=== PATIENT | male | born 1945 | race Hispanic/Latino ===

== ENCOUNTER 2017-12-22 12:52 | Inpatient (IN) | payer OTHER ==
[~2017-12-22] VITALS: Ht 152.4 cm; Wt 53.4 kg
[~2017-12-22 12:52] MED LIST: ASPI-555 PO; ATOR10 PO; FURO-152 PO; LACT10SO9 PO; LEVO500T2 PO; METO25 PO; SPIR25TA4 PO
[2017-12-22 13:29] LABS: HEMATOCRIT 46.2 % (42-54); MEAN CORPUSCULAR HEMOGLOBIN 30.9 pg (27.0-33.0); MEAN CORPUSCULAR HGB CONC 34.4 g/dL (32.0-36.0); MEAN CORPUSCULAR VOLUME 89.8 fL (79-99); PLATELET COUNT (AUTO) 281 K/uL (130-400); RED BLOOD CELL COUNT(AUTO) 5.15 MIL/uL (4.50-6.20); RED CELL DISTRIBUTION WIDTH 13.9 % (11.0-15.5); WHITE BLOOD COUNT (AUTO) 11.2 K/uL (4.8-10.8)
[2017-12-22 13:42] LABS: CREATININE 1.6 mg/dL (0.5-1.5); POTASSIUM 4.7 mmol/L (3.5-5.1)
[2017-12-22 13:46] LABS: BILIRUBIN,DIRECT 0.3 mg/dL (0.0-0.3); BILIRUBIN,TOTAL 1.2 mg/dL (0.2-1.0); TOTAL PROTEIN, SERUM 7.9 g/dL (6.0-8.3)
[2017-12-22] MEDS ORDERED: MORPHINE SULFATE 2 MG/ML 1ML SYG ONE (14:10)
[2017-12-22] MEDS ORDERED: ONDANSETRON HCL 4 MG/2 ML VIAL ONE (14:10)
[2017-12-22 14:19] LABS: APPEARANCE,URINE Clear (CLEAR); BILIRUBIN,URINE Negative (NEGATIVE); COLOR,URINE Yellow (YELLOW); GLUCOSE, URINE (UA) >=1000 mg/dL (NEGATIVE); KETONES,URINE 15 mg/dL (NEGATIVE); LEUKOCYTE ESTERASE ,URINE Negative (NEGATIVE); NITRATE,URINE Negative (NEGATIVE); OCCULT BLOOD,URINE Negative (NEGATIVE); PROTEIN,URINE Negative (NEGATIVE)
[2017-12-22 14:31] LABS: BAND NEUTROPHILS % (MANUAL) 22 % (0-2); BASOPHILS % (MANUAL) 1 % (0-2); LYMPHOCYTES % (MANUAL) 2 % (22-44); MONOCYTES % (MANUAL) 7 % (2-9); REACTIVE LYMPHOCYTES 2 % (0-0); SEGMENTED NEUTROPHILS % 66 % (40-70)
[2017-12-22 14:32] LABS: PLATELET MORPHOLOGY COMMENT ADEQUATE
[2017-12-22 14:43] LABS: BACTERIA,URINE None Seen /HPF (None Seen); HYALINE CASTS, URINE 0-1 /LPF (0-1 /LPF); RBC,URINE None Seen /HPF (0-1); SQUAMOUS EPITHELIAL CELL,UR 0-2 /LPF (0-2); WBC,URINE None Seen /HPF (0-1)
[2017-12-22] MEDS ORDERED: SODIUM CHLORIDE 0.9% 1000ML 1,000 ML IV ONE (14:54)
[2017-12-22] MEDS ORDERED: LIDOCAINE HCL 2% VISCOUS 15 ML UDCUP ONE (14:54)
[2017-12-22 16:55] VITALS: BP 118/61
[2017-12-22] MEDS ORDERED: LABETALOL HCL 5 MG/ML 20ML VIAL IV PRN (17:15)
[2017-12-22] MEDS ORDERED: MORPHINE SULFATE 4 MG/1ML SYG IVP PRN (17:15)
[2017-12-22] MEDS ORDERED: LIDOCAINE HCL-MPF 1% 2ML VIAL IJ PRN (17:15)
[2017-12-22] MEDS ORDERED: DEXTROSE 50%-WATER 50 ML DISP.SYRIN IV PRN (17:15)
[2017-12-22] MEDS ORDERED: ONDANSETRON HCL 4 MG/2 ML VIAL IVP PRN (17:15)
[2017-12-22] MEDS ORDERED: GLUCAGON 1MG KIT 1 MG ML IM PRN (17:15)
[2017-12-22] MEDS ORDERED: MORPHINE SULFATE 2 MG/ML 1ML SYG IVP PRN (17:15)
[2017-12-22] MEDS ORDERED: POTASSIUM CHLORIDE 20 MEQ ERTAB PO PRN (17:15)
[2017-12-22] MEDS ORDERED: ACETAMINOPHEN 650 MG SUPPOSITORY RC PRN (17:15)
[2017-12-22] MEDS ORDERED: POTASSIUM CHLORIDE 10% ELIXIR 20 MEQ/15 ML UDCUP PO PRN (17:15)
[2017-12-22] MEDS ORDERED: POTASSIUM CHLORIDE 20MEQ/100ML 100 ML IV PRN (17:15)
[2017-12-22] MEDS: INSULIN R NPO SSI SQ SCH (18:40)
[2017-12-22 20:00] VITALS: BP 110/55
[2017-12-23] VITALS: BP 99/52
[2017-12-23 04:00] VITALS: BP 101/51
[2017-12-23 05:01] LABS: HEMATOCRIT 38.6 % (42-54); MEAN CORPUSCULAR HEMOGLOBIN 30.6 pg (27.0-33.0); MEAN CORPUSCULAR HGB CONC 34.1 g/dL (32.0-36.0); MEAN CORPUSCULAR VOLUME 89.9 fL (79-99); PLATELET COUNT (AUTO) 215 K/uL (130-400); RED BLOOD CELL COUNT(AUTO) 4.29 MIL/uL (4.50-6.20); RED CELL DISTRIBUTION WIDTH 14.1 % (11.0-15.5); WHITE BLOOD COUNT (AUTO) 8.6 K/uL (4.8-10.8)
[2017-12-23 05:10] LABS: CREATININE 1.4 mg/dL (0.5-1.5); POTASSIUM 3.9 mmol/L (3.5-5.1)
[2017-12-23] MEDS: SODIUM CHLORIDE 0.9% 1000ML 1,000 ML IV SCH ×2 (05:30→21:43)
[2017-12-23] MEDS: MEROPENEM 500 MG VIAL IVP SCH ×3 (05:30→21:43)
[2017-12-23] MEDS: INSULIN R NPO SSI SQ SCH ×4 (06:00→17:24)
[2017-12-23] MEDS ORDERED: MEROPENEM 500MG+NS 50ML 50 ML IV SCH (06:00)
[2017-12-23 07:00] VITALS: BP 117/59
[2017-12-23] MEDS ORDERED: ACETAMINOPHEN-CODEINE 300/30MG TAB PO PRN ×2 (09:45)
[2017-12-23 11:00] VITALS: BP 111/61
[2017-12-23 16:00] VITALS: BP 109/63
[2017-12-23 20:00] VITALS: BP_SYST 115; BP_SYST 120; BP_DIAS 58; BP_DIAS 61
[2017-12-24] VITALS (7 sets, daily range): BP systolic 103–125; BP diastolic 52–61
[2017-12-24 05:32] LABS: BASOPHILS % (AUTO) 0.3 % (0.0-5.0); EOSINOPHILS % (AUTO) 0.3 % (0.0-8.0); HEMATOCRIT 37.2 % (42-54); LYMPHOCYTES % (AUTO) 14.7 % (21.0-51.0); MEAN CORPUSCULAR HEMOGLOBIN 31.1 pg (27.0-33.0); MEAN CORPUSCULAR HGB CONC 33.6 g/dL (32.0-36.0); MEAN CORPUSCULAR VOLUME 92.4 fL (79-99); MONOCYTES % (AUTO) 9.5 % (3.0-13.0); NEUTROPHILS % (AUTO) 75.2 % (40.0-77.0); PLATELET COUNT (AUTO) 225 K/uL (130-400); RED BLOOD CELL COUNT(AUTO) 4.02 MIL/uL (4.50-6.20); RED CELL DISTRIBUTION WIDTH 14.3 % (11.0-15.5); WHITE BLOOD COUNT (AUTO) 9.5 K/uL (4.8-10.8)
[2017-12-24 05:40] LABS: CREATININE 1.1 mg/dL (0.5-1.5)
[2017-12-24] MEDS: MEROPENEM 500 MG VIAL IVP SCH (05:53)
[2017-12-24] MEDS: INSULIN R NPO SSI SQ SCH ×4 (06:00→17:14)
[2017-12-24] MEDS: SODIUM CHLORIDE 0.9% 1000ML 1,000 ML IV SCH (09:15)
[2017-12-25] MEDS: SODIUM CHLORIDE 0.9% 1000ML 1,000 ML IV SCH (00:36)
[2017-12-25 04:25] VITALS: BP 104/52
[2017-12-25] MEDS: INSULIN R NPO SSI SQ SCH ×4 (06:00→21:20)
[2017-12-25 06:13] LABS: CREATININE 0.9 mg/dL (0.5-1.5); POTASSIUM 3.7 mmol/L (3.5-5.1)
[2017-12-25 08:04] VITALS: BP 125/63
[2017-12-25 11:41] VITALS: BP 132/71
[2017-12-25] MEDS ORDERED: INSULIN HUMULIN R 100 UNIT/ML 3ML SQ ONE (12:33)
[2017-12-25 16:36] VITALS: BP 116/59
[2017-12-25 19:00] VITALS: BP 124/56
[2017-12-25] MEDS ORDERED: FURO20TA4 PO (21:31)
[2017-12-25] MEDS ORDERED: CYAN250014 PO (21:31)
[2017-12-25] MEDS ORDERED: FISH1CAP10 PO (21:31)
[2017-12-25] MEDS ORDERED: RIVA15TA PO (21:31)
[2017-12-25 23:00] VITALS: BP 111/55
[2017-12-26 03:00] VITALS: BP 109/56
[2017-12-26 04:17] LABS: CREATININE 0.8 mg/dL (0.5-1.5); POTASSIUM 3.7 mmol/L (3.5-5.1)
[2017-12-26] MEDS: INSULIN R NPO SSI SQ SCH ×2 (05:48)
[2017-12-26 08:17] VITALS: BP 129/63
[2017-12-26] MEDS ORDERED: BISA5TAB12 PO (09:40)
[2017-12-26 12:00] VITALS: BP 142/65
[2017-12-26] MEDS ORDERED: RIVAROXABAN 15 MG TABLET PO SCH (17:00)
[2017-12-26] MEDS ORDERED: METOPROLOL TARTRATE 25 MG TAB PO SCH (21:00)
[2017-12-26] MEDS ORDERED: ATORVASTATIN CALCIUM 10 MG TABLET PO SCH (21:00)
[2017-12-27] MEDS ORDERED: FISH OIL 1000 MG/CAP PO SCH (09:00)
[2017-12-27] MEDS ORDERED: FUROSEMIDE 20 MG TABLET PO SCH (09:00)
[2017-12-27] MEDS ORDERED: SPIRONOLACTONE 25 MG TAB PO SCH (09:00)
[2017-12-27] MEDS ORDERED: CYANOCOBALAMIN (VITAMIN B-12) 1,000 MCG TABLET PO SCH (09:00)
== END 2017-12-26 12:45 | disposition home or self-care (01) | DRG 389 ==
LOC: EDH 12:52 → EDHIP 14:48 → OBSVTOIN 14:48 → 4BH 16:23
PROVIDERS: ADMIT Internal Medicine; ATTEND Internal Medicine
DX: K56.609 Unspecified intestinal obstruction, unspecified as to partial versus complete obstruction (principal); N17.9 Acute kidney failure, unspecified; E11.65 Type 2 diabetes mellitus with hyperglycemia; E78.5 Hyperlipidemia, unspecified; I10 Essential (primary) hypertension; I25.10 Atherosclerotic heart disease of native coronary artery without angina pectoris; Z95.1 Presence of aortocoronary bypass graft
CPT/HCPCS: 36415; 71045; 74021; 74176; 80048; 80076; 81001; 82948; 83690; 84484; 85025; 85027; 87040; 93005; J1815; J2185; J2405; J7030

== ENCOUNTER 2019-11-18 23:39 | Emergency (ER) | payer OTHER ==
[~2019-11-18 23:39] MED LIST changes: -ASPI-555 PO; +BISA5TAB12 PO; +CYAN250014 PO; +FISH1CAP10 PO; -FURO-152 PO; +FURO20TA4 PO; -LACT10SO9 PO; -LEVO500T2 PO; +RIVA15TA PO; -SPIR25TA4 PO; +SPIR25TA6 PO
[2019-11-18] MEDS ORDERED: IBUPROFEN 600 MG TABLET ONE (23:57)
== END 2019-11-19 00:35 | disposition home or self-care (01) ==
LOC: EDH 23:39
DX: S83.8X2A Sprain of other specified parts of left knee, initial encounter (principal); E11.9 Type 2 diabetes mellitus without complications; E78.5 Hyperlipidemia, unspecified; I10 Essential (primary) hypertension; I25.810 Atherosclerosis of coronary artery bypass graft(s) without angina pectoris; W18.39XA Other fall on same level, initial encounter; Y93.01 Activity, walking, marching and hiking; Y92.89 Other specified places as the place of occurrence of the external cause; Y99.8 Other external cause status
CPT/HCPCS: 73562

== ENCOUNTER → 2021-06-10 | Outpatient (CLI) | payer OTHER | END | disposition home or self-care (01) | LOC: RAH 10:10 | PROVIDERS: ATTEND Internal Medicine Cardiovascular Disease | DX: R94.31 Abnormal electrocardiogram [ECG] [EKG] (principal); I10 Essential (primary) hypertension | CPT/HCPCS: 93306; 93356 ==

== ENCOUNTER → 2024-08-16 | Outpatient (CLI) | payer OTHER ==
[~2024-08-16] MED LIST changes: +BISA-189 PO; -BISA5TAB12 PO
== END | disposition home or self-care (01) ==
LOC: SHCH 13:10
PROVIDERS: ATTEND Internal Medicine Cardiovascular Disease
DX: Z95.2 Presence of prosthetic heart valve (principal)
CPT/HCPCS: 93306

== ENCOUNTER → 2024-12-24 | Outpatient (CLI) | payer OTHER, MEDICARE ==
[~2024-12-24] MED LIST changes: +ASPI-888 PO; -ATOR10 PO; -BISA-189 PO; -CYAN250014 PO; +ESCI-8 PO; -FISH1CAP10 PO; -FURO20TA4 PO; +GABA-534 PO; -RIVA15TA PO; +ROSU40TA88 PO; -SPIR25TA6 PO
--- NOTE | 2025-01-07 17:05 | HMCSR ---
APPROVED REPORT EXAM: Two-dimensional and M-mode echocardiogram with Doppler and color Doppler. INDICATION ICD: Leg swelling 2D Dimensions RVDd4.1 cmLVEF(%)78.1 (>50%)LA ESV INDEX (4CH)52.90 mL/m2 IVSd1.4 (0.7-1.1cm)FS(%)46 % LVDd3.9 (3.8-5.6cm)LA (2D)5.4 (1.6-4.0cm) PWd1.1 (0.7-1.1cm)Ao Root(2D)3.1 (2.0-3.7cm) IVSs1.3 cmLVOT diam2.1 (1.8-2.4cm) LVDs2.1 (2.5-4.0cm) PWs1.7 cm Aortic Valve AoV VTI0.5 mAo Mean GR11.0 mmHgLVOT VTI0.18 m TAMELA (VMAX)1.3 cm2AVA (VTI) 1.3 cm2 Mitral Valve MV E Vcpb464.8 cm/sDECEL Jahu158 msMV Mean GR11 mmHg MV A Orvl399.1 cm/sP 1/2 T106 msMVA (VTI)0.8 cm2 E/A ratio1.9MVA (PHT)2.1 cm2 TDI E/E' Nsxihe55.8E/E' Blapchp79.3 Medial E' Peak V3.60 cm/sLateral E' Peak V5.70 cm/s Pulmonary Valve PV Vmax1.0 m/s PV Peak GR3.6 mmHg Tricuspid Valve TR Vmax4.0 m/s TR Peak GR62.5 mmHg Left Ventricle Left ventricular cavity size is normal. Normal wall motion Mild concentric left ventricular hypertrop hy. LVEF is 55-60%. Stage II diastolic dysfunction. Right Ventricle The right ventricle is normal size. Right ventricular systolic function is normal Atria The left atrium is severely dilated. The right atrium size is normal. Aortic Valve Not well seen No aortic regurgitation is present. There is no aortic valvular stenosis. Mitral Valve Mitral valve leaflets are moderately calcified and display decreased opening. There is no mitral valv e regurgitation noted. SEVERE MITRAL STENOSIS Tricuspid Valve The tricuspid valve is normal in structure and function. There is no tricuspid valve regurgitation no claire. Pulmonic Valve Not seen Great Vessels The aortic root is normal in size. The IVC is normal in size and collapses >50% with inspiration. Pericardium No pericardial effusion. Conclusion LVEF is 55-60%. Stage II diastolic dysfunction. Mild concentric left ventricular hypertrophy. Left ventricular cavity size is normal. Normal wall motion The left atrium is severely dilated. Mitral valve leaflets are moderately calcified and display decreased opening. SEVERE MITRAL STENOSIS No pericardial effusion. Moderate to severe pulmonary hypertension Study quality was adequate
== END | disposition home or self-care (01) ==
LOC: RAH 14:11
PROVIDERS: ATTEND Internal Medicine
DX: I05.0 Rheumatic mitral stenosis (principal); M79.89 Other specified soft tissue disorders; I27.20 Pulmonary hypertension, unspecified
CPT/HCPCS: 93306

== ENCOUNTER 2025-03-25 14:26 | Inpatient (IN) | payer OTHER, MEDICARE ==
[~2025-03-25] VITALS: Ht 160 cm; Wt 59.4 kg
[2025-03-25 16:58] LABS: BASOPHILS # (AUTO) 0.05 K/uL (0.00-0.20); BASOPHILS % (AUTO) 0.8 % (0.0-5.0); EOSINOPHILS % (AUTO) 6.7 % (0.0-8.0); HEMATOCRIT 34.8 % (42-54); IMMATURE GRANULOCYTE ABSOLUTE 0.01 K/uL (0-1); LYMPHOCYTES # (AUTO) 2.5 K/uL (1.0-4.8); LYMPHOCYTES % (AUTO) 40.9 % (21.0-51.0); MEAN CORPUSCULAR HEMOGLOBIN 28.2 pg (27.0-33.0); MEAN CORPUSCULAR HGB CONC 31.9 g/dL (32.0-36.0); MEAN CORPUSCULAR VOLUME 88.3 fL (79-99); MONOCYTES # (AUTO) 0.5 K/uL (0.1-1.0); MONOCYTES % (AUTO) 8.5 % (3.0-13.0); NEUTROPHILS # (AUTO) 2.6 K/uL (1.8-7.7); NEUTROPHILS % (AUTO) 42.9 % (40.0-77.0); PLATELET COUNT (AUTO) 260 K/uL (130-400); RED BLOOD CELL COUNT(AUTO) 3.94 MIL/uL (4.50-6.20); RED CELL DISTRIBUTION WIDTH 14.8 % (11.0-15.5)
[2025-03-25 17:00] VITALS: BP 178/72; PULSE 73; RESP 18; TEMP 98
[2025-03-25 17:07] LABS: CREATININE 1.1 mg/dL (0.5-1.3)
[2025-03-25 17:12] LABS: ALBUMIN 3.5 g/dL (3.5-5.0); BILIRUBIN,TOTAL 0.3 mg/dL (0.2-1.0); TOTAL PROTEIN, SERUM 7.4 g/dL (6.0-8.3)
[2025-03-25 18:01] LABS: ERYTHROCYTE SEDIMENTATION RATE 41 MM/HR (0-20)
--- NOTE | 2025-03-25 18:59 | HP ---
[facility] HISTORY & PHYSICAL Date Patient Seen: Mar 25, 2025 Time of Visit: 18:50 Supervising Physician: Dr. Wen Primary Care Physician: Dr. MERYL [facility] Outpatient Specialists: [ ] Inpatient Consults: [ ] PROBLEM LIST: 1. LEFT FOOT CELLULITIS 2. DIABETES TYPE 2 UNCONTROLLED 3. ESSENTIAL HYPERTENSION 4. RIGHT BKA, POA Chief complaint: Left foot pain, left foot swelling, left foot redness HPI: Patient is a 79-year-old male with past medical history significant for diabetes type 2, hypertension, peripheral arterial disease, depression, coronary artery disease, and a surgical history of cardiac stent placement, right BKA, referred to the emergency department from [facility] for evaluation of left foot redness, swelling, and pain. Patient reports that for the past seven days, he has been noticing a progressive swelling to the left foot, associated with redness and pain. Patient was seen today at [facility] and was referred to this facility for direct admission. Patient denies fever, chills, nausea, vomiting, diarrhea, cough, dizziness, or any other symptoms. The basic lab shows ESR of 41, glucose of 264. Yoke Setter has been consulted. Patient will be admitted to medical-surgical floor for further evaluation and treatment. PAST MEDICAL HX: see above PAST SURGICAL HX: noncontributory SOCIAL HISTORY: No tobacco, ETOH, or illicit drug use Coded Allergies: No Known Drug Allergies (Verified Allergy, 02/19/14) REVIEW OF SYSTEMS: 12 point ROS reviewed with patient. Pertinent positives mentioned above. Otherwise negative. PHYSICAL EXAM: GENERAL: alert, weak, awake oriented x 3 HEENT: EOMI, Sclera non icteric, moist mucosa NECK: Supple, no JVD, trachea midline LUNGS: Clear breath sounds bilaterally. No wheezes HEART: Regular rate and rhythm. Normal S1 and S2, without murmurs ABD: Abdomen soft, nontender. Bowel sounds present EXT: Left foot cellulitis NEURO: Alert and oriented to person, follows commands Vital Signs (last 8hr) Date Time Temp Pulse Resp B/P (MAP) Pulse Ox O2 Delivery O2 Flow Rate FiO2 03/25/25 17:00 98.1 73 18 178/72 99 Room Air 03/25/25 14:42 98.2 71 16 146/62 97 Room Air 0 LABS: Hematology Labs: Test 03/25/25 16:49 Range/Units White Blood Count 6.0 4.8-10.8 K/uL Red Blood Count 3.94 L 4.50-6.20 MIL/uL Hemoglobin 11.1 L 14.0-18.0 g/dL Hematocrit 34.8 L 42-54 % Mean Corpuscular Volume 88.3 79-99 fL Mean Corpuscular Hemoglobin 28.2 27.0-33.0 pg Mean Corpuscular Hemoglobin Concent 31.9 L 32.0-36.0 g/dL Red Cell Distribution Width 14.8 11.0-15.5 % Platelet Count 260 130-400 K/uL Mean Platelet Volume 9.2 7.5-10.5 fL Immature Granulocyte % (Auto) 0.2 0-1 % Neutrophils (%) (Auto) 42.9 40.0-77.0 % Lymphocytes (%) (Auto) 40.9 21.0-51.0 % Monocytes (%) (Auto) 8.5 3.0-13.0 % Eosinophils (%) (Auto) 6.7 0.0-8.0 % Basophils (%) (Auto) 0.8 0.0-5.0 % Neutrophils # (Auto) 2.6 1.8-7.7 K/uL Lymphocytes # (Auto) 2.5 1.0-4.8 K/uL Monocytes # (Auto) 0.5 0.1-1.0 K/uL Eosinophils # (Auto) 0.40 0.00-0.70 K/uL Basophils # (Auto) 0.05 0.00-0.20 K/uL Absolute Immature Granulocyte (auto 0.01 0-1 K/uL Nucleated Red Blood Cells 0.0 0.0-0.19 % Erythrocyte Sedimentation Rate 41 H 0-20 MM/HR Chemistry Labs: Test 03/25/25 16:49 Range/Units Sodium Level 137 136-145 mmol/L Potassium Level 4.0 3.5-5.1 mmol/L Chloride Level 99 L 101-111 mmol/L Carbon Dioxide Level 31 21-32 mmol/L Blood Urea Nitrogen 14 7-18 mg/dL Creatinine 1.1 0.5-1.3 mg/dL Glomerular Filtration Rate Calc 68 >90 mL/min Random Glucose 264 H 70-105 mg/dL Lactic Acid Level 1.1 0.8-2.5 mmol/L Total Calcium 8.4 L 8.5-10.1 mg/dL Total Bilirubin 0.3 0.2-1.0 mg/dL Aspartate Amino Transf (AST/SGOT) 17 10-37 U/L Alanine Aminotransferase (ALT/SGPT) 17 12-78 U/L Alkaline Phosphatase 163 H 50-136 U/L Total Protein 7.4 6.0-8.3 g/dL Albumin 3.5 3.5-5.0 g/dL DIAGNOSTICS / RADIOLOGY RESULTS: [ ] PLAN NEURO: Minimize central acting medications as possible. Maintain fall precautions, adequate lighting during the day PULMONARY: Supplemental 02 as needed. Maintain aspiration precautions at all times CARDIOVASCULAR: Follow hemodynamics. Vital signs per facility protocol GI & NUTRITION: Continue with nutritional support. Continue stool softeners and laxatives as needed. KIDNEYS & ELECTROLYTES: Strict monitoring of intake, output and overall fluid balance. Avoid nephrotoxic medications to the extent possible. Medications to be dosed according to renal function. Monitor electrolytes and replace as needed ENDOCRINE: Maintain blood glucose between 100-180 at all times. Hypoglycemia protocol in place Obtain hemoglobin A1c INFECTIOUS DISEASE: Trend temperature, WBC and procalcitonin level Follow cultures, deescalate antibiotics as soon as possible. Panculture if new onset fever Vancomycin and cefepime ONCOLOGY/HEMATOLOGY/COAGULATION: Monitor for s/s of bleeding Monitor hemoglobin, coagulation studies as needed SKIN: Pressure ulcer prevention per facility protocol Specialty mattress Obtain MRI left foot to rule out osteomyelitis ORTHO/REHAB: Continue PT/OT Prophylaxis: Continue GI and DVT prophylaxis Code Status: Full Resuscitation Disposition: TBD Other: Total patient care time exceeds 35 minutes excluding all procedures. Case discussed with and the above plan was formulated. KELSEY BARDALES Mar 25, 2025 18:59
[2025-03-25] MEDS ORDERED: MAG/ALUM/SIMETH 30 ML UDCUP PO PRN (19:00)
[2025-03-25] MEDS ORDERED: LACTULOSE 20 GM/30 ML UDCUP PO PRN (19:00)
[2025-03-25] MEDS ORDERED: NITROGLYCERIN 0.4 MG SL TAB SL PRN (19:00)
[2025-03-25] MEDS ORDERED: doCUSate SODIUM 100 MG CAP PO PRN (19:00)
[2025-03-25] MEDS: VANCOMYCIN 1.5 GM/250 ML BAG 250 ML IV ONE (19:00)
[2025-03-25] MEDS ORDERED: acetaMINOPHEN 325 MG TAB PO PRN (19:00)
[2025-03-25] MEDS ORDERED: guaiFENesin-DM 200/20MG 10ML PO PRN (19:00)
[2025-03-25] MEDS ORDERED: ondanSETRON 4MG INJ IV PRN (19:00)
[2025-03-25] MEDS ORDERED: polyETHYLene GLYCol 3350 17 GM POWD.PACK PO PRN (19:00)
[2025-03-25] MEDS ORDERED: VANCOMYCIN PROTOCOL PER PHARMACY IV SCH (19:00)
[2025-03-25 19:09] VITALS: BP 142/86
[2025-03-25] MEDS: ceFEPime HCL 1 GM VIAL IVPB SCH (19:14)
[2025-03-25 19:19] LABS: HEMOGLOBIN A1C 9.6 % (4.0-6.0)
--- NOTE | 2025-03-25 19:20 | HMCIMG ---
FOOT COMP 3+VWS LT HISTORY: Diabetic foot COMPARISON: None TECHNIQUE: 3 images of left foot were obtained. FINDINGS: There is no acute displaced fracture or dislocation. There is soft tissue swelling. Vascular calcifications are seen. There is a calcaneal spur. Degenerative changes are seen. IMPRESSION: 1. Findings as described above.
[2025-03-25 19:24] LABS: INR 1.01 (0.85-1.15); PROTHROMBIN TIME 10.7 SEC (9.6-11.6)
[2025-03-25 19:33] LABS: PARTIAL THROMBOPLASTIN TIME 28.9 SEC (26.3-35.5)
--- NOTE | 2025-03-25 21:35 | NUR ---
RECEIVED REPORT FROM BROWN KIM, AWAITING PATIENT ARRIVAL TO UNIT.
--- NOTE | 2025-03-25 21:35 | NUR ---
REPORT CALLED TO SUMI KIM
[2025-03-25 21:50] VITALS: BP 168/69; PULSE 72; RESP 19; TEMP 98; O2SAT 96
--- NOTE | 2025-03-25 21:50 | NUR ---
NURSE NOTE PATIENT ARRIVED VIA STRETCHER , SELF TRANSFERRED TO BED, TOLERATED WELL . EDUCATED ON SAFETY PRECAUTIONS AND CALL BURGESS. PATIENT VOICED UNDERSTANDING.
[2025-03-25] MEDS ORDERED: FURO20TA4 PO (22:27)
[2025-03-26] VITALS: BP 152/71; PULSE 74; RESP 19; TEMP 98
[2025-03-26 08:20] VITALS: O2SAT 97
[2025-03-26] MEDS: VANCOMYCIN 750MG VIAL IVPB SCH (09:16)
--- NOTE | 2025-03-26 09:16 | NUR ---
MORNING MEDICATION ADMINISTRATION SEE DOWNTIME FORM
--- NOTE | 2025-03-26 10:00 | NUR ---
Order received and spoke to Angie, patient's nurse. Patient pending podiatry consult. PT team to follow and await podiatry input on activity level. PT team to follow.
--- NOTE | 2025-03-26 11:11 | CONS ---
[facility] CARDIOLOGY CONSULTATION REPORT Cardiology consultation note dictated for Madelyn Merritt MD Primary program assistant: Lucho Beatty MD Date Patient Seen: March 26, 2025 Requesting Physician: Bertha Wen MD Reason for Consultation: PAD, LLE cellulitis History of Present Illness: This is a 79 y/o male with a past medical history of HTN, HLP, DM II, CAD s/p 2V CABG (MAI-LAD, SVG-RCA) with bioprosthetic AV replacement and mitral valve repair done 02/24/2014, well-seated and normally functioning bioprosthetic valve (peak velocity 1.8 m/s, mean gradient 7 mmHg, DVI 0.5), severe mitral stenosis (MVA 1.0 cm2, mean gradient 9.4 mmHg, peak gradient 25.7 mmHg), severe TR, (poor candidate for repeat open thoracotomy, MVR and TR repair), normal left ventricle systolic function (LVEF 55 to 60% with grade III diastolic dysfunction by echocardiogram done on 08/16/2024, pulmonary hypertension (who group 2), PAD s/p successful treatment with directional atherectomy and DC LABORER PIPELINE in the mid right popliteal artery and successful laser atherectomy and LABORER PIPELINE in the mid and distal right SY done 06/30/2020, medical noncompliance, and non-healing ulcer in the right foot s/p R BKA who was sent to the ED by [facility] for further evaluation of left foot redness, swelling, and pain. The patient reported progressive swelling to the left foot, associated with redness and pain over the last 7 days. Cardiology has been consulted for PAD, LLE cellulitis. The patient is a poor historian but was able to state his left foot was red, swollen and had increased discomfort over a "few months." He was sent to the ED by [facility] where he told them his symptoms started one week ago. He does have a small, dry ulcer to the tip of his left 2nd toe. The LLE has trace edema, dry, shiny and brown discolored skin, no erythema noted. He does admits to LLE discomfort if he hits his left foot but not to palpation. Unable to palpate Left DP or PT pulses. LLE arterial Doppler on 12/09/2024 with biphasic waveforms in the left common femoral artery, monophasic waveforms to the superficial femoral artery waveforms and popliteal artery with good flow velocity. Posterior tibial is monophasic with mi ldly decreased flow velocity. Anterior tibial and dorsalis pedis are monophasic with markedly decreased flow velocity and marked waveform flattening. Past Medical History: As per HPI and summarized below Past Surgical History: Right BKA Family History: Noncontributory Social History: The patient lives with family. Habits: Former smoker. Denies alcohol consumption. Denies illicit drug use Home Meds: Aspirin 81 mg daily Rosuvastatin 20 mg daily Metoprolol [id number] mg b.i.d. Lasix 20 mg daily Escitalopram 10 mg daily Gabapentin 400 mg t.i.d. Current Meds: Medications Dose Ordered Sig/Niki Start Time Stop Time Status Last Admin Cefepime HCl 1 gm Q12H 03/25/25 19:00 04/15/25 18:59 03/25/25 19:14 Vancomycin HCl 1 each AD 03/25/25 19:00 04/08/25 18:59 Acetaminophen 650 mg Q6H PRN 03/25/25 19:00 04/24/25 18:59 Ondansetron HCl 4 mg Q6H PRN 03/25/25 19:00 04/24/25 18:59 Al Hydroxide/Mg Hydroxide 30 ml Q6H PRN 03/25/25 19:00 04/24/25 18:59 Lactulose 20 gm BID PRN 03/25/25 19:00 04/24/25 18:59 Nitroglycerin 0.4 mg PROTOCOL PRN 03/25/25 19:00 04/24/25 18:59 Guaifenesin/ Dextromethorphan 10 ml Q4H PRN 03/25/25 19:00 04/24/25 18:59 Hydralazine HCl 25 mg Q6H PRN 03/25/25 19:00 04/24/25 18:59 Docusate Sodium 100 mg BID PRN 03/25/25 19:00 04/24/25 18:59 Polyethylene Glycol 17 gm DAILY PRN 03/25/25 19:00 04/24/25 18:59 Vancomycin HCl 750 mg Q12H 03/26/25 09:00 04/16/25 08:59 Review of Systems: CONST: No fever, fatigue, or weight changes. EYES: No recent vision problems. ENT: No congestion, ear pain, or sore throat. C/V: No chest pain or palpitations. Admits to LLE edema that has improved. RESP: No cough, congestion, wheezing or shortness of breath. GI: No abdominal pain, nausea, vomiting, constipation, or diarrhea. : No incontinence or dysuria. SKIN: Admits to LLE pain and ulcer to left 2nd toe. NEURO: No headache, focal numbness or weakness, dizziness, or seizures. PSYCH: No depression or anxiety. HEME: No abnormal bruising or bleeding. LYMPH: No swollen glands. Physical Examination: GENERAL: No acute distress. HEAD: Normal with no signs of head trauma. EYES: PERRLA, EOMI, conjunctiva and sclera normal. ENT: Hearing grossly intact, normal oropharynx. NECK: Supple without JVD. There is no tenderness, lymphadenopathy, or masses. No thyromegaly. Normal carotid upstrokes without bruits. LUNGS: Clear breath sounds bilaterally. No wheezes, or rhonchi. HEART: Normal rate and rhythm. Normal S1 and S2 without murmurs, gallop or rub. VASC: Unable to palpate DP or PT pulses to the Lt foot. ABD: Bowel sounds normal, soft, nontender, no masses, no organomegaly. No audible bruits. : [Not examined] LYMPH: No lymphadenopathy noted. EXT: No clubbing or cyanosis. Right BKA. SKIN: Small, dry ulcer to the tip of left 2nd toe, LLE with trace edema and dry, shiny and brown discolored skin. No erythema noted. NEURO: Awake and alert, poor memory. Laboratory: Hematology Labs: Test 03/25/25 16:49 Range/Units White Blood Count 6.0 4.8-10.8 K/uL Red Blood Count 3.94 L 4.50-6.20 MIL/uL Hemoglobin 11.1 L 14.0-18.0 g/dL Hematocrit 34.8 L 42-54 % Mean Corpuscular Volume 88.3 79-99 fL Mean Corpuscular Hemoglobin 28.2 27.0-33.0 pg Mean Corpuscular Hemoglobin Concent 31.9 L 32.0-36.0 g/dL Red Cell Distribution Width 14.8 11.0-15.5 % Platelet Count 260 130-400 K/uL Mean Platelet Volume 9.2 7.5-10.5 fL Immature Granulocyte % (Auto) 0.2 0-1 % Neutrophils (%) (Auto) 42.9 40.0-77.0 % Lymphocytes (%) (Auto) 40.9 21.0-51.0 % Monocytes (%) (Auto) 8.5 3.0-13.0 % Eosinophils (%) (Auto) 6.7 0.0-8.0 % Basophils (%) (Auto) 0.8 0.0-5.0 % Neutrophils # (Auto) 2.6 1.8-7.7 K/uL Lymphocytes # (Auto) 2.5 1.0-4.8 K/uL Monocytes # (Auto) 0.5 0.1-1.0 K/uL Eosinophils # (Auto) 0.40 0.00-0.70 K/uL Basophils # (Auto) 0.05 0.00-0.20 K/uL Absolute Immature Granulocyte (auto 0.01 0-1 K/uL Nucleated Red Blood Cells 0.0 0.0-0.19 % Erythrocyte Sedimentation Rate 41 H 0-20 MM/HR Chemistry Labs: Test 03/26/25 05:52 03/25/25 16:49 Range/Units Whole Blood Glucose 65 L 70-110 MG/DL Sodium Level 137 136-145 mmol/L Potassium Level 4.0 3.5-5.1 mmol/L Chloride Level 99 L 101-111 mmol/L Carbon Dioxide Level 31 21-32 mmol/L Blood Urea Nitrogen 14 7-18 mg/dL Creatinine 1.1 0.5-1.3 mg/dL Glomerular Filtration Rate Calc 68 >90 mL/min Random Glucose 264 H 70-105 mg/dL Hemoglobin A1c 9.6 H 4.0-6.0 % Estimated Average Glucose (eAG) 229 H 70-126 mg/dL Lactic Acid Level 1.1 0.8-2.5 mmol/L Total Calcium 8.4 L 8.5-10.1 mg/dL Total Bilirubin 0.3 0.2-1.0 mg/dL Aspartate Amino Transf (AST/SGOT) 17 10-37 U/L Alanine Aminotransferase (ALT/SGPT) 17 12-78 U/L Alkaline Phosphatase 163 H 50-136 U/L Total Protein 7.4 6.0-8.3 g/dL Albumin 3.5 3.5-5.0 g/dL Coagulation Labs: Test 03/25/25 16:49 Range/Units Prothrombin Time 10.7 9.6-11.6 SEC Prothromb Time International Ratio 1.01 0.85-1.15 Activated Partial Thromboplast Time 28.9 26.3-35.5 SEC Diagnostics / Radiology: Impression and Plan: LLE Cellulitis PAD, hx R BKA, with LLE arterial duplex from November of 2024 showing monophasic waveforms extending from the SFA. HTN HLP DM II CAD s/p 2V CABG (MAI-LAD, SVG-RCA) with bioprosthetic AV replacement and mitral valve repair done 02/24/2014 Well-seated and normally functioning bioprosthetic valve (peak velocity 1.8 m/s, mean gradient 7 mmHg, DVI 0.5), severe mitral stenosis (MVA 1.0 cm2, mean gradient 9.4 mmHg, peak gradient 25.7 mmHg), severe TR, normal left ventricle systolic function (LVEF 55 to 60% with grade III diastolic dysfunction by echocardiogram done on 08/16/2024 Poor candidate for repeat open thoracotomy, MVR and TR repair Pulmonary hypertension (who group 2) PAD s/p R BKA PAD LLE arterial Doppler on 12/09/2024 with biphasic waveforms in the left common femoral artery, monophasic waveforms to the superficial femoral artery waveforms and popliteal artery with good flow velocity. Posterior tibial is monophasic with mildly decreased flow velocity. Anterior tibial and dorsalis pedis are monophasic with markedly decreased flow velocity and marked waveform flattening. -Resume aspirin 81 mg daily and atorvastatin 40 mg nightly -Add clopidogrel -Check LDL -Adjust antihypertensives -Follow up arterial duplex and MRI results -Following results of studies, will determine if invasive angiography warranted this hospitalization. RADHA ARTHUR CORPORATE INTERN March 26, 2025 11:11 MADELYN MERRITT DO March 26, 2025 13:51
[2025-03-26 12:00] VITALS: BP 169/71; PULSE 70; RESP 18; TEMP 97.9
[2025-03-26] MEDS: ASPIRIN 81 MG EC TAB PO SCH (12:50)
[2025-03-26] MEDS: metoPROLOL tartRATE 25 MG TAB PO SCH (12:50)
[2025-03-26] MEDS: furoSEMIDE 20 MG TABLET PO SCH (13:13)
[2025-03-26] MEDS: cloPIDOgrel 75MG TAB PO SCH (14:17)
[2025-03-26 16:00] VITALS: BP 122/63; PULSE 67; RESP 18; TEMP 98.1
--- NOTE | 2025-03-26 16:10 | HMCIMG ---
US ARTERIAL UNILA LOW EXT DUPL HISTORY: Peripheral artery disease COMPARISON: Ultrasound from December 10, 2024 TECHNIQUE: Left lower extremity arterial Doppler ultrasound study was performed. FINDINGS: Biphasic arterial waveforms are noted in the left common femoral, deep femoral, superficial femoral, popliteal arteries. Abnormal monophasic arterial waveforms are seen in the left anterior tibial, posterior tibial and dorsalis pedal arteries. On the left, the peak systolic velocity of the common femoral artery is 87 cm/s, the proximal femoral artery is 95 cm/s, the mid femoral artery is 88 cm/s, the distal femoral artery is 56 cm/s, the proximal popliteal artery is 47 cm/s, the distal popliteal artery is 61 cm/s, the anterior tibial artery is 30 cm/s, the posterior tibial artery artery is 50 cm/s,and the dorsalis pedal artery is 35 cm/s. IMPRESSION: 1. Atherosclerotic disease. 2. Abnormal monophasic arterial waveforms are seen in the left anterior tibial, posterior tibial and dorsalis pedal arteries.
--- NOTE | 2025-03-26 16:28 | PN ---
[facility] PROGRESS NOTE Date Patient Seen: March 26, 2025 Time of Visit: 16:28 Supervising Physician: [Dr. Mazariegos] Primary Care Physician: Dr. MERYL GROSS Outpatient Specialists: [ ] Inpatient Consults: [Dr. Rodriguez, Dr. Meza] PROBLEM LIST: 1. LEFT 2ND TOE ULCER 2. DIABETES TYPE 2 UNCONTROLLED 3. ESSENTIAL HYPERTENSION 4. RIGHT BKA, POA 5. REMOTE HX OF CABG INTERVAL HISTORY: [PATIENT IS EVALUATED AT BEDSIDE. HE WAS ADMITTED FOR EVALUATION OF LEFT 2ND TOE ULCER. HE HAS A HISTORY OF RIGHT BKA IN 2013. HE HAD MRI OF THE LEFT FOOT PERFORMED, PENDING READING. DR. RODRIGUEZ HAS BEEN CONSULTED, PENDING EVALUATION. DR. MEZA HAS ALSO BEEN CONSULTED HAD ARTERIAL DOPPLER ORDERED. WILL FOLLOW UP WITH IMAGING STUDIES AND SPECIALIST RECOMMENDATIONS. HIS A1C IS 9.6 AND ESR IS 41, OTHERWISE LABS AND VITALS WERE UNREMARKABLE.] REVIEW OF SYSTEMS: 12 point ROS reviewed with patient. Pertinent positives mentioned above. Otherwise negative. PHYSICAL EXAM: GENERAL: alert, weak, awake oriented x 3 HEENT: EOMI, Sclera non icteric, moist mucosa NECK: Supple, no JVD, trachea midline LUNGS: Clear breath sounds bilaterally. No wheezes HEART: Regular rate and rhythm. Normal S1 and S2, without murmurs ABD: Abdomen soft, nontender. Bowel sounds present EXT: Left foot cellulitis NEURO: Alert and oriented to person, follows commands Vital Signs (last 8hr) Date Time Temp Pulse Resp B/P (MAP) Pulse Ox O2 Delivery O2 Flow Rate FiO2 03/26/25 12:00 97.9 70 18 169/71 98 Room Air 21 LABS: Hematology Labs: Test 03/25/25 16:49 Range/Units White Blood Count 6.0 4.8-10.8 K/uL Red Blood Count 3.94 L 4.50-6.20 MIL/uL Hemoglobin 11.1 L 14.0-18.0 g/dL Hematocrit 34.8 L 42-54 % Mean Corpuscular Volume 88.3 79-99 fL Mean Corpuscular Hemoglobin 28.2 27.0-33.0 pg Mean Corpuscular Hemoglobin Concent 31.9 L 32.0-36.0 g/dL Red Cell Distribution Width 14.8 11.0-15.5 % Platelet Count 260 130-400 K/uL Mean Platelet Volume 9.2 7.5-10.5 fL Immature Granulocyte % (Auto) 0.2 0-1 % Neutrophils (%) (Auto) 42.9 40.0-77.0 % Lymphocytes (%) (Auto) 40.9 21.0-51.0 % Monocytes (%) (Auto) 8.5 3.0-13.0 % Eosinophils (%) (Auto) 6.7 0.0-8.0 % Basophils (%) (Auto) 0.8 0.0-5.0 % Neutrophils # (Auto) 2.6 1.8-7.7 K/uL Lymphocytes # (Auto) 2.5 1.0-4.8 K/uL Monocytes # (Auto) 0.5 0.1-1.0 K/uL Eosinophils # (Auto) 0.40 0.00-0.70 K/uL Basophils # (Auto) 0.05 0.00-0.20 K/uL Absolute Immature Granulocyte (auto 0.01 0-1 K/uL Nucleated Red Blood Cells 0.0 0.0-0.19 % Erythrocyte Sedimentation Rate 41 H 0-20 MM/HR Chemistry Labs: Test 03/26/25 14:52 03/25/25 16:49 Range/Units Whole Blood Glucose 224 H 70-110 MG/DL Sodium Level 137 136-145 mmol/L Potassium Level 4.0 3.5-5.1 mmol/L Chloride Level 99 L 101-111 mmol/L Carbon Dioxide Level 31 21-32 mmol/L Blood Urea Nitrogen 14 7-18 mg/dL Creatinine 1.1 0.5-1.3 mg/dL Glomerular Filtration Rate Calc 68 >90 mL/min Random Glucose 264 H 70-105 mg/dL Hemoglobin A1c 9.6 H 4.0-6.0 % Estimated Average Glucose (eAG) 229 H 70-126 mg/dL Lactic Acid Level 1.1 0.8-2.5 mmol/L Total Calcium 8.4 L 8.5-10.1 mg/dL Total Bilirubin 0.3 0.2-1.0 mg/dL Aspartate Amino Transf (AST/SGOT) 17 10-37 U/L Alanine Aminotransferase (ALT/SGPT) 17 12-78 U/L Alkaline Phosphatase 163 H 50-136 U/L Total Protein 7.4 6.0-8.3 g/dL Albumin 3.5 3.5-5.0 g/dL Coagulation Labs: Test 03/25/25 16:49 Range/Units Prothrombin Time 10.7 9.6-11.6 SEC Prothromb Time International Ratio 1.01 0.85-1.15 Activated Partial Thromboplast Time 28.9 26.3-35.5 SEC DIAGNOSTICS / RADIOLOGY RESULTS: [ ] PLAN NEURO: Minimize central acting medications as possible. Maintain fall precautions, adequate lighting during the day PULMONARY: Supplemental 02 as needed. Maintain aspiration precautions at all times CARDIOVASCULAR: Follow hemodynamics. Vital signs per facility protocol GI & NUTRITION: Continue with nutritional support. Continue stool softeners and laxatives as needed. KIDNEYS & ELECTROLYTES: Strict monitoring of intake, output and overall fluid balance. Avoid nephrotoxic medications to the extent possible. Medications to be dosed according to renal function. Monitor electrolytes and replace as needed ENDOCRINE: Maintain blood glucose between 100-180 at all times. Hypoglycemia protocol in place Obtain hemoglobin A1c INFECTIOUS DISEASE: Trend temperature, WBC and procalcitonin level Follow cultures, deescalate antibiotics as soon as possible. Panculture if new onset fever Vancomycin and cefepime ONCOLOGY/HEMATOLOGY/COAGULATION: Monitor for s/s of bleeding Monitor hemoglobin, coagulation studies as needed SKIN: Pressure ulcer prevention per facility protocol Specialty mattress Obtain MRI left foot to rule out osteomyelitis ORTHO/REHAB: Continue PT/OT Prophylaxis: Continue GI and DVT prophylaxis Code Status: Full Resuscitation Disposition: TBD Other: Total patient care time exceeds 35 minutes excluding all procedures. Case discussed with and the above plan was formulated. ANDRES VELASQUEZ March 26, 2025 16:28
--- NOTE | 2025-03-26 17:08 | HMCIMG ---
MR FOOT LEFT WO HISTORY: Dry wounds to first and second toes COMPARISON: None TECHNIQUE: MRI of the left foot was performed utilizing multiple pulse sequences in axial, coronal and sagittal planes. Patient was not given contrast through intravenous route. FINDINGS: Abnormal increased signal intensity is seen to distal and midportion of the fifth metatarsal bone suggested of osteomyelitis in the proper clinical setting. Abnormal increased signal intensity is seen involving second distal phalanx and possible first distal phalanx suspicious for osteomyelitis in the proper clinical setting. Degenerative changes are seen with no evidence of fracture or dislocation. IMPRESSION: 1. Abnormal signal intensity is seen involving the distal and midportion of the fifth metatarsal bone, second distal phalanx and possibly first distal phalanx suspicious for osteomyelitis in the proper clinical setting.
[2025-03-26 19:25] VITALS: O2SAT 97
[2025-03-26 20:00] VITALS: BP 178/63; PULSE 69; RESP 20; TEMP 98
--- NOTE | 2025-03-26 20:00 | NUR ---
NURSE NOTE NOTED RFA PIV LEAKING, DC AND STARTED NEW 20G TO RT.HAND, PATIENT TOLERATED WELL , PATIENT CALLED MINUTES LATER TO REPORT HE HAD PULLED ON IV TUBBING BY ACCIDENT NOTED RT.HAND DISCOLORED, AND PIV OUT OF PLACE. CLEANSED WITH NS, AND SECURED WITH GAUZE AND TAPE.COOL COMPRESSION APPLIED AND ARM ELEVATED. PATIENT TOLERATED WELL DENIES PAIN. WILL CONTINUE TO MONITOR. EDUCATED TO USE CALL BURGESS FOR ASSISTANCE. PATIENT VOICED UNDERSTANDING.
[2025-03-26] MEDS: atorVAStatin 40 MG TABLET PO SCH (20:31)
[2025-03-26] MEDS: hydrALAZine 25MG TABLET PO PRN (21:46)
[2025-03-27] VITALS (7 sets, daily range): BP systolic 128–166; BP diastolic 30–101; PULSE 60–73; RESP 18–19; TEMP 97.6–98.2; O2SAT 97–98
[2025-03-27 05:57] LABS: CHOLESTEROL 123 mg/dL (<200); HDL CHOLESTEROL 52 mg/dL (29-71); LDL DIRECT 59 mg/dL (0-99); TRIGLYCERIDES 87 mg/dL (30-200)
--- NOTE | 2025-03-27 06:49 | NUR ---
NURSE NOTE AT BEDSIDE WITH PATIENT. NO NEW ORDERS GIVEN BY .
--- NOTE | 2025-03-27 06:56 | NUR ---
NURSE NOTE CALL PLACED TO ARYAN FOR [facility]ENCHMARK REGARDING NEED FOR SLIDING SCALE DUE TO PATIENT BS AT 285MG/DL, PER ASSEMBLY INSPECTOR NIA BAEZA,AWAITING CALL BACK.
--- NOTE | 2025-03-27 07:01 | CONS ---
HISTORY OF PRESENT ILLNESS: The patient is a 79-year-old diabetic male who is a patient of the [facility] Hospitalist Service. His primary care physician is Dr. Veronica Lawson from [facility]. Dr. Beatty is his machine container washer. The patient is being followed for left lower extremity second toe ulcer, uncontrolled diabetes, essential hypertension, right xpekp-kuf-[id number] amputation, remote history of CABG, peripheral vascular disease to that left lower extremity. The patient is being worked up by the Cardiology service for evaluation for the possibility of arteriogram and angioplasty procedure to that left lower extremity. He was admitted to the hospital for a left second toe dry eschar ulcer. He has a history of a right mlfyl-ytw-lopn amputation in 2013. He had an MRI performed of the left foot and the results of the MRI of the left foot showed abnormal signal intensity involving the distal and mid portion of the fifth metatarsal, the second distal phalanx and possibly the first distal phalanx, suspicious for osteomyelitis in the proper clinical settings. The patient had arterial Doppler studies performed on the left. Abnormal monophasic waveforms seen in the left anterior tibial, posterior tibial and dorsalis pedis arteries. The patient had x-rays of the left foot, soft tissue swelling and vascular calcifications, calcaneal spurring, degenerative changes. The patient has a hemoglobin A1c of 9.6, has a T-max 98.1, pulse 70, respirations 19, blood pressure 128/86. He has a white count of 6.0, H and H 11 and 34.8, platelets 260, neutrophils 42.9. The patient has a BUN and a creatinine level of 14 and 1.1. Glucose 65, potassium 4.0. REVIEW OF SYSTEMS: CONSTITUTIONAL: Having no chills, no fevers, no night sweats, no nausea, vomiting, no diarrhea. HEENT: No problems with his eyes, ears, nose or throat. CARDIOVASCULAR: He has left lower extremity peripheral vascular disease with monophasic waveforms of the anterior tibial and posterior tibial arteries on the left side, being evaluated by the Cardiology service. MUSCULOSKELETAL: He has MRI suggesting osteomyelitis to the second distal phalanx, possibly the first distal phalanx, possibly the mid portion of the fifth metatarsal and distal portion of the fifth metatarsal per MRI. INTEGUMENT: The patient has a small dry eschar at the tip of the left second toe. He has edema and erythema to the left foot. PHYSICAL EXAMINATION: On his examination today could not palpate his pedal pulses on the left. Left foot is cold. He has dry eschar to the tip of the left second toe. He has a dyqod-lho-rvtt amputation on the right. His reflexes are diminished. His muscle strength is intact. His pedal and ankle joint ranges of motion are within normal limits. ASSESSMENT: Left lower extremity ischemia and osteomyelitis of the left second toe, possibly to the left fifth metatarsal and to the left first toe per MRI. Hypertension, hyperlipidemia, diabetes, coronary artery disease, status post CABG, status post bioprosthetic valve replacement, pulmonary hypertension and peripheral vascular disease, being evaluated by the Cardiology service. PLAN: Awaiting evaluation of his circulation status by the Cardiology service. The patient is currently receiving IV vancomycin and IV cefepime. We will continue to follow the patient closely while in-house, awaiting evaluation of circulation status by the Cardiology Service. The patient is currently afebrile and his white count is within normal limits. We will follow the patient closely while in-house. TID: [id number] RECEIPT: [id number]
[2025-03-27] MEDS: INSULIN humuLIN R 100 UNIT/ML 3ML SQ SCH (08:07)
--- NOTE | 2025-03-27 10:19 | PN ---
[facility] PROGRESS NOTE Date Patient Seen: March 27, 2025 Time of Visit: 10:19 Supervising Physician: [Dr. Chavez] Primary Care Physician: Dr. MERYL GROSS Outpatient Specialists: [ ] Inpatient Consults: [Dr. Rodriguez, Dr. Meza] PROBLEM LIST: 1. LEFT 2ND TOE ULCER 2. DIABETES TYPE 2 UNCONTROLLED 3. ESSENTIAL HYPERTENSION 4. RIGHT BKA, POA 5. REMOTE HX OF CABG INTERVAL HISTORY: [PATIENT IS EVALUATED AT BEDSIDE. HE WAS ADMITTED FOR EVALUATION OF LEFT 2ND TOE ULCER. HE HAS A HISTORY OF RIGHT BKA IN 2013. HE HAD MRI OF THE LEFT FOOT PERFORMED, PENDING READING. DR. RODRIGUEZ HAS BEEN CONSULTED, PENDING EVALUATION. DR. MEZA HAS ALSO BEEN CONSULTED HAD ARTERIAL DOPPLER ORDERED. WILL FOLLOW UP WITH IMAGING STUDIES AND SPECIALIST RECOMMENDATIONS. HIS A1C IS 9.6 AND ESR IS 41, OTHERWISE LABS AND VITALS WERE UNREMARKABLE.] 03/27 patient evaluated at bedside. He has abnormal monophasic waveforms per arterial Doppler. His MRI of the foot confirms osteomyelitis. He is pending invasive angiogram to left lower extremity per cardio, likely for early next week. We will continue to follow up with recommendation from cardiology, pending surgical intervention. REVIEW OF SYSTEMS: 12 point ROS reviewed with patient. Pertinent positives mentioned above. Otherwise negative. PHYSICAL EXAM: GENERAL: alert, weak, awake oriented x 3 HEENT: EOMI, Sclera non icteric, moist mucosa NECK: Supple, no JVD, trachea midline LUNGS: Clear breath sounds bilaterally. No wheezes HEART: Regular rate and rhythm. Normal S1 and S2, without murmurs ABD: Abdomen soft, nontender. Bowel sounds present EXT: Left foot cellulitis NEURO: Alert and oriented to person, follows commands Vital Signs (last 8hr) Date Time Temp Pulse Resp B/P (MAP) Pulse Ox O2 Delivery O2 Flow Rate FiO2 03/27/25 08:00 98.1 71 18 158/83 97 Room Air 03/27/25 03:53 98.1 70 19 128/86 96 Room Air LABS: Hematology Labs: Test 03/25/25 16:49 Range/Units White Blood Count 6.0 4.8-10.8 K/uL Red Blood Count 3.94 L 4.50-6.20 MIL/uL Hemoglobin 11.1 L 14.0-18.0 g/dL Hematocrit 34.8 L 42-54 % Mean Corpuscular Volume 88.3 79-99 fL Mean Corpuscular Hemoglobin 28.2 27.0-33.0 pg Mean Corpuscular Hemoglobin Concent 31.9 L 32.0-36.0 g/dL Red Cell Distribution Width 14.8 11.0-15.5 % Platelet Count 260 130-400 K/uL Mean Platelet Volume 9.2 7.5-10.5 fL Immature Granulocyte % (Auto) 0.2 0-1 % Neutrophils (%) (Auto) 42.9 40.0-77.0 % Lymphocytes (%) (Auto) 40.9 21.0-51.0 % Monocytes (%) (Auto) 8.5 3.0-13.0 % Eosinophils (%) (Auto) 6.7 0.0-8.0 % Basophils (%) (Auto) 0.8 0.0-5.0 % Neutrophils # (Auto) 2.6 1.8-7.7 K/uL Lymphocytes # (Auto) 2.5 1.0-4.8 K/uL Monocytes # (Auto) 0.5 0.1-1.0 K/uL Eosinophils # (Auto) 0.40 0.00-0.70 K/uL Basophils # (Auto) 0.05 0.00-0.20 K/uL Absolute Immature Granulocyte (auto 0.01 0-1 K/uL Nucleated Red Blood Cells 0.0 0.0-0.19 % Erythrocyte Sedimentation Rate 41 H 0-20 MM/HR Chemistry Labs: Test 03/27/25 05:32 03/27/25 05:10 03/25/25 16:49 Range/Units Triglycerides Level 87 30-200 mg/dL Cholesterol Level 123 # <200 mg/dL LDL Cholesterol 59 0-99 mg/dL HDL Cholesterol 52 29-71 mg/dL Whole Blood Glucose 285 H 70-110 MG/DL Sodium Level 137 136-145 mmol/L Potassium Level 4.0 3.5-5.1 mmol/L Chloride Level 99 L 101-111 mmol/L Carbon Dioxide Level 31 21-32 mmol/L Blood Urea Nitrogen 14 7-18 mg/dL Creatinine 1.1 0.5-1.3 mg/dL Glomerular Filtration Rate Calc 68 >90 mL/min Random Glucose 264 H 70-105 mg/dL Hemoglobin A1c 9.6 H 4.0-6.0 % Estimated Average Glucose (eAG) 229 H 70-126 mg/dL Lactic Acid Level 1.1 0.8-2.5 mmol/L Total Calcium 8.4 L 8.5-10.1 mg/dL Total Bilirubin 0.3 0.2-1.0 mg/dL Aspartate Amino Transf (AST/SGOT) 17 10-37 U/L Alanine Aminotransferase (ALT/SGPT) 17 12-78 U/L Alkaline Phosphatase 163 H 50-136 U/L Total Protein 7.4 6.0-8.3 g/dL Albumin 3.5 3.5-5.0 g/dL Coagulation Labs: Test 03/25/25 16:49 Range/Units Prothrombin Time 10.7 9.6-11.6 SEC Prothromb Time International Ratio 1.01 0.85-1.15 Activated Partial Thromboplast Time 28.9 26.3-35.5 SEC DIAGNOSTICS / RADIOLOGY RESULTS: [ ] PLAN NEURO: Minimize central acting medications as possible. Maintain fall precautions, adequate lighting during the day PULMONARY: Supplemental 02 as needed. Maintain aspiration precautions at all times CARDIOVASCULAR: Follow hemodynamics. Vital signs per facility protocol GI & NUTRITION: Continue with nutritional support. Continue stool softeners and laxatives as needed. KIDNEYS & ELECTROLYTES: Strict monitoring of intake, output and overall fluid balance. Avoid nephrotoxic medications to the extent possible. Medications to be dosed according to renal function. Monitor electrolytes and replace as needed ENDOCRINE: Maintain blood glucose between 100-180 at all times. Hypoglycemia protocol in place Obtain hemoglobin A1c INFECTIOUS DISEASE: Trend temperature, WBC and procalcitonin level Follow cultures, deescalate antibiotics as soon as possible. Panculture if new onset fever Vancomycin and cefepime ONCOLOGY/HEMATOLOGY/COAGULATION: Monitor for s/s of bleeding Monitor hemoglobin, coagulation studies as needed SKIN: Pressure ulcer prevention per facility protocol Specialty mattress Obtain MRI left foot to rule out osteomyelitis ORTHO/REHAB: Continue PT/OT Prophylaxis: Continue GI and DVT prophylaxis Code Status: Full Resuscitation Disposition: TBD Other: Total patient care time exceeds 35 minutes excluding all procedures. Case discussed with and the above plan was formulated. ANDRES VELASQUEZ March 27, 2025 10:19
--- NOTE | 2025-03-27 10:25 | PN ---
[facility] CARDIOLOGY PROGRESS NOTE Date Patient Seen: March 27, 2025 Time of Visit: 10:23 Problem List: LLE cellulitis, osteomyelitis PAD Interval History: Only complaint is discoloration to the Left foot. Physical Examination: GENERAL: [No acute distress.] HEAD: [Normal with no signs of head trauma.] NECK: [. Normal carotid upstrokes without bruits.] LUNGS: [Clear breath sounds bilaterally. No wheezes, or rhonchi.] HEART: [Normal rate and rhythm. Normal S1 and S2 without murmurs, gallop or rub. ] EXT: [R BKA. Left foot dressing c/d/i. small <1cm circumscribed area of eschar distal tip of Left 2nd digit of lower extremity. SKIN: [dry necrosis left lower extremity 2nd digit distal tip.] NEURO: [Awake, alert, and oriented x3. No focal sensory or strength deficits noted.] Laboratory: [ ] Hematology Labs: Test 03/25/25 16:49 Range/Units White Blood Count 6.0 4.8-10.8 K/uL Red Blood Count 3.94 L 4.50-6.20 MIL/uL Hemoglobin 11.1 L 14.0-18.0 g/dL Hematocrit 34.8 L 42-54 % Mean Corpuscular Volume 88.3 79-99 fL Mean Corpuscular Hemoglobin 28.2 27.0-33.0 pg Mean Corpuscular Hemoglobin Concent 31.9 L 32.0-36.0 g/dL Red Cell Distribution Width 14.8 11.0-15.5 % Platelet Count 260 130-400 K/uL Mean Platelet Volume 9.2 7.5-10.5 fL Immature Granulocyte % (Auto) 0.2 0-1 % Neutrophils (%) (Auto) 42.9 40.0-77.0 % Lymphocytes (%) (Auto) 40.9 21.0-51.0 % Monocytes (%) (Auto) 8.5 3.0-13.0 % Eosinophils (%) (Auto) 6.7 0.0-8.0 % Basophils (%) (Auto) 0.8 0.0-5.0 % Neutrophils # (Auto) 2.6 1.8-7.7 K/uL Lymphocytes # (Auto) 2.5 1.0-4.8 K/uL Monocytes # (Auto) 0.5 0.1-1.0 K/uL Eosinophils # (Auto) 0.40 0.00-0.70 K/uL Basophils # (Auto) 0.05 0.00-0.20 K/uL Absolute Immature Granulocyte (auto 0.01 0-1 K/uL Nucleated Red Blood Cells 0.0 0.0-0.19 % Erythrocyte Sedimentation Rate 41 H 0-20 MM/HR Chemistry Labs: Test 03/27/25 05:32 03/27/25 05:10 03/25/25 16:49 Range/Units Triglycerides Level 87 30-200 mg/dL Cholesterol Level 123 # <200 mg/dL LDL Cholesterol 59 0-99 mg/dL HDL Cholesterol 52 29-71 mg/dL Whole Blood Glucose 285 H 70-110 MG/DL Sodium Level 137 136-145 mmol/L Potassium Level 4.0 3.5-5.1 mmol/L Chloride Level 99 L 101-111 mmol/L Carbon Dioxide Level 31 21-32 mmol/L Blood Urea Nitrogen 14 7-18 mg/dL Creatinine 1.1 0.5-1.3 mg/dL Glomerular Filtration Rate Calc 68 >90 mL/min Random Glucose 264 H 70-105 mg/dL Hemoglobin A1c 9.6 H 4.0-6.0 % Estimated Average Glucose (eAG) 229 H 70-126 mg/dL Lactic Acid Level 1.1 0.8-2.5 mmol/L Total Calcium 8.4 L 8.5-10.1 mg/dL Total Bilirubin 0.3 0.2-1.0 mg/dL Aspartate Amino Transf (AST/SGOT) 17 10-37 U/L Alanine Aminotransferase (ALT/SGPT) 17 12-78 U/L Alkaline Phosphatase 163 H 50-136 U/L Total Protein 7.4 6.0-8.3 g/dL Albumin 3.5 3.5-5.0 g/dL Coagulation Labs: Test 03/25/25 16:49 Range/Units Prothrombin Time 10.7 9.6-11.6 SEC Prothromb Time International Ratio 1.01 0.85-1.15 Activated Partial Thromboplast Time 28.9 26.3-35.5 SEC Diagnostics / Radiology: [Copy/Paste Echos/Imaging Report here] Impression and Plan: LLE Cellulitis MRI suggestive of osteomyelitis involving fifth metatarsal bone, second distal p halanx and possibly first distal phalanx PAD, hx R BKA, with LLE arterial duplex from November of 2024 showing monophasic waveforms extending from the SFA. HTN HLP DM II CAD s/p 2V CABG (MAI-LAD, SVG-RCA) with bioprosthetic AV replacement and mitral valve repair done 02/24/2014 Well-seated and normally functioning bioprosthetic valve (peak velocity 1.8 m/s, mean gradient 7 mmHg, DVI 0.5), severe mitral stenosis (MVA 1.0 cm2, mean gradient 9.4 mmHg, peak gradient 25.7 mmHg), severe TR, normal left ventricle systolic function (LVEF 55 to 60% with grade III diastolic dysfunction by echocardiogram done on 08/16/2024 Poor candidate for repeat open thoracotomy, MVR and TR repair Pulmonary hypertension (who group 2) LDL 59. Continue with DAPT (Aspirin, clopidogrel) Hypertension well controlled Continue statin. LDL at goal. ABX and wound care Given abnormal arterial duplex, cellulitis with osteomyelitis, and history of Right BKA, I am recommending invasive angiography prior to discharge. Will need to review the schedule and make arrangements, however likely Sunday. MER PROCTOR DO March 27, 2025 10:25
--- NOTE | 2025-03-27 12:37 | NUR ---
MET W PATIENT AT BEDSIDE FOR DC PLANNING [facility] STATES LIVES WITH DTR AND SON IN LAW. STATES HOME IS SAFE AND ACCESSIBLE WITH A RAMP. HE HAS A WALKER, WHEELCHAIR, AD ELECTRIC WHEELCHAIR. GOES TO [facility] FOR 6 YEARS NOW, THE [facility] TRANSPORTS TO ALL MD APPPOINTMENTS HE ALSO HAS PROVIDER SERVICES FOR SEVERAL HOURS EVERY AFTERNOON STATES HE IS MOSTLY INDEPENDENT BUT DOES REQUIRE SOME ASSISTANCE TO BATHE. EXPLAINED THAT IF HIS FOOT HAS INFECTION IN THE BONE HE MAY NEED ABX OUT PATIENT . STATES THAT IF HE HAD TO GO TO A CLINC FOR ABX THE [facility] COULD TAKE HIM SUNDAY TO SUNDAY AND HIS FAMILY COULD TAKE HIM ON THE WEEKENDS. WILL F/UP WITH MD'S FOR THE DC PLAN. Addendum: 03/27/25 at 1243 by JOSE F BELTRAN RN CM Amended: Links added.
[2025-03-27] MEDS: VANCOMYCIN 1G/250ML KIT 250 ML IV SCH (20:03)
[2025-03-27] MEDS: VANCOMYCIN 500MG+NS 100ML 100 ML IV SCH (21:27)
[2025-03-28 04:00] VITALS: BP 166/92; PULSE 68; RESP 18; TEMP 98.6
--- NOTE | 2025-03-28 06:53 | PN ---
SUBJECTIVE: The patient is a 79-year-old diabetic Latin-Y[place]i male, status post uxhsl-imh-fdxw amputation on the right. Hemoglobin A1c 9.6. Peripheral vascular disease, being followed by the Cardiology Service. Left leg cellulitis. MRI suggesting osteomyelitis involving the fifth metatarsal, second toe distal phalanx and possibly the first toe distal phalanx. Arterial Doppler studies, monophasic waveforms extending from the SFA distally. Hypertension, hyperlipidemia, diabetes mellitus type 2 uncontrolled, hemoglobin A1c of 9.6, coronary artery disease status post two-vessel CABG, bioprosthetic AV replacement and mitral valve repair done 02/24/2014, pulmonary hypertension, receiving dual antiplatelet therapy with aspirin and Plavix. The patient has been evaluated by the Cardiology Service. Plan is for arteriogram, possible angioplasty procedure to the left lower extremity to be performed on Sunday. The patient is currently afebrile without any complaints of pain. T-max 98.6, pulse is 68, respirations 18, blood pressure 166/92. He has a white count 6.0, H and H 11 and 34.8, platelets 250, sed rate 41. BUN and creatinine level 14 and 1.1, glucose 264, A1c is 9.6. REVIEW OF SYSTEMS: CONSTITUTIONAL: Has no pain to the left foot. HEENT: No problems with his eyes, ears, nose, or throat. CARDIOVASCULAR: Having no current chest pain. RESPIRATORY: No shortness of breath. GENITOURINARY: No dysuria. GASTROINTESTINAL: No dysphagia. MUSCULOSKELETAL: Zlrba-nxc-tktw amputation on the right. MRI suggesting osteomyelitis second toe distal phalanx left, possibly first toe distal phalanx left, possible mid portion of the fifth metatarsal left. INTEGUMENTARY: He has a dry eschar to the tip of the left second toe, edema and erythema to the left foot. OBJECTIVE: The patient's examination today shows I cannot palpate his pedal pulses on the left. Left foot is cool. He has dry eschar to the tip of the left second toe. He has a bzsea-dgw-nngb amputation on the right. Reflexes diminished. Muscle strength intact. His pedal and ankle joint range of motion are within normal limits. Toenails are thickened, but not elongated. ASSESSMENT: Left lower extremity ischemia. Abnormal arterial Doppler studies. Monophasic waveforms distal to the SFA. MRI suggesting osteomyelitis to the first toe distal phalanx, second toe distal phalanx, and left fifth metatarsal. Clinically, the patient has a dry eschar to the tip of the left second toe. The patient has hypertension, hyperlipidemia, uncontrolled diabetes, A1c 9.6, coronary artery disease, status post CABG, status post bioprosthetic valve replacement, pulmonary hypertension, peripheral vascular disease, being evaluated by the Cardiology Service. The patient is receiving IV vancomycin and IV cefepime. PLAN: We will continue with the IV vancomycin. Continue with the IV cefepime. Awaiting evaluation by the Cardiology Service for a possible arteriogram and angioplasty procedure to the left lower extremity, tentatively scheduled for Sunday. We will continue to follow the patient closely while in-house. The patient may require a second toe amputation due to the osteomyelitis involving the left second toe. Clinically, the patient has no ulcerations to either the first toe or the fifth ray of that left foot. TID: [id number] RECEIPT: [id number]
[2025-03-28 08:00] VITALS: BP 183/100; PULSE 71; RESP 19; TEMP 98.2; O2SAT 100
[2025-03-28 09:56] VITALS: BP 171/71; PULSE 72; RESP 18
[2025-03-28 12:00] VITALS: BP 175/97; PULSE 68; RESP 19; TEMP 98
[2025-03-28 16:00] VITALS: BP 165/94; PULSE 70; RESP 19; TEMP 98.2
--- NOTE | 2025-03-28 17:24 | PN ---
[facility] PROGRESS NOTE Date Patient Seen: March 28, 2025 Time of Visit: 17:16 Supervising Physician: [Dr. Chavez] Primary Care Physician: Dr. MERYL GROSS Outpatient Specialists: [ ] Inpatient Consults: [Dr. Rodriguez, Dr. Meza] PROBLEM LIST: 1. LEFT 2ND TOE ULCER 2. DIABETES TYPE 2 UNCONTROLLED 3. ESSENTIAL HYPERTENSION 4. RIGHT BKA, POA 5. REMOTE HX OF CABG INTERVAL HISTORY: [PATIENT IS EVALUATED AT BEDSIDE. HE WAS ADMITTED FOR EVALUATION OF LEFT 2ND TOE ULCER. HE HAS A HISTORY OF RIGHT BKA IN 2013. HE HAD MRI OF THE LEFT FOOT PERFORMED, PENDING READING. DR. RODRIGUEZ HAS BEEN CONSULTED, PENDING EVALUATION. DR. MEZA HAS ALSO BEEN CONSULTED HAD ARTERIAL DOPPLER ORDERED. WILL FOLLOW UP WITH IMAGING STUDIES AND SPECIALIST RECOMMENDATIONS. HIS A1C IS 9.6 AND ESR IS 41, OTHERWISE LABS AND VITALS WERE UNREMARKABLE.] 03/27 patient evaluated at bedside. He has abnormal monophasic waveforms per arterial Doppler. His MRI of the foot confirms osteomyelitis. He is pending invasive angiogram to left lower extremity per cardio, likely for early next week. We will continue to follow up with recommendation from cardiology, pending surgical intervention. 03/28 patient is evaluated at bedside. BP is elevated. Most recent labs within normal limits, continues on IV antibiotics. Pending lower extremity angiogram per Cardiology early next week. We will await further recommendation postprocedure. No new concerns verbalized with the patient REVIEW OF SYSTEMS: 12 point ROS reviewed with patient. Pertinent positives mentioned above. Otherwise negative. PHYSICAL EXAM: GENERAL: alert, weak, awake oriented x 3 HEENT: EOMI, Sclera non icteric, moist mucosa NECK: Supple, no JVD, trachea midline LUNGS: Clear breath sounds bilaterally. No wheezes HEART: Regular rate and rhythm. Normal S1 and S2, without murmurs ABD: Abdomen soft, nontender. Bowel sounds present EXT: Left foot cellulitis NEURO: Alert and oriented to person, follows commands Vital Signs (last 8hr) Date Time Temp Pulse Resp B/P (MAP) Pulse Ox O2 Delivery O2 Flow Rate FiO2 03/28/25 16:00 98.2 70 19 165/94 97 Room Air 03/28/25 12:00 98.1 68 19 175/97 92 Room Air 03/28/25 09:56 72 18 171/71 97 Room Air 0.0 LABS: Chemistry Labs: Test 03/28/25 14:51 03/27/25 05:32 Range/Units Whole Blood Glucose 207 H 70-110 MG/DL Triglycerides Level 87 30-200 mg/dL Cholesterol Level 123 # <200 mg/dL LDL Cholesterol 59 0-99 mg/dL HDL Cholesterol 52 29-71 mg/dL DIAGNOSTICS / RADIOLOGY RESULTS: [ ] PLAN NEURO: Minimize central acting medications as possible. Maintain fall precautions, adequate lighting during the day PULMONARY: Supplemental 02 as needed. Maintain aspiration precautions at all times CARDIOVASCULAR: Follow hemodynamics. Vital signs per facility protocol GI & NUTRITION: Continue with nutritional support. Continue stool softeners and laxatives as needed. KIDNEYS & ELECTROLYTES: Strict monitoring of intake, output and overall fluid balance. Avoid nephrotoxic medications to the extent possible. Medications to be dosed according to renal function. Monitor electrolytes and replace as needed ENDOCRINE: Maintain blood glucose between 100-180 at all times. Hypoglycemia protocol in place Obtain hemoglobin A1c INFECTIOUS DISEASE: Trend temperature, WBC and procalcitonin level Follow cultures, deescalate antibiotics as soon as possible. Panculture if new onset fever Vancomycin and cefepime ONCOLOGY/HEMATOLOGY/COAGULATION: Monitor for s/s of bleeding Monitor hemoglobin, coagulation studies as needed SKIN: Pressure ulcer prevention per facility protocol Specialty mattress Obtain MRI left foot to rule out osteomyelitis ORTHO/REHAB: Continue PT/OT Prophylaxis: Continue GI and DVT prophylaxis Code Status: Full Resuscitation Disposition: TBD Other: Total patient care time exceeds 35 minutes excluding all procedures. Case discussed with and the above plan was formulated. ANDRES VELASQUEZ March 28, 2025 17:24
[2025-03-28] MEDS: amLODIPine 5 MG TAB PO SCH (18:56)
[2025-03-28 20:00] VITALS: BP 155/79; PULSE 72; RESP 18; TEMP 98.2
[2025-03-28] MEDS: GABApentin 100 MG CAPSULE PO SCH (21:14)
[2025-03-29] VITALS (8 sets, daily range): BP systolic 138–154; BP diastolic 69–95; PULSE 63–69; RESP 18–20; TEMP 97.9–98.1; O2SAT 96–98
[2025-03-29 06:51] LABS: HEMATOCRIT 32.9 % (42-54); MEAN CORPUSCULAR HEMOGLOBIN 28.2 pg (27.0-33.0); MEAN CORPUSCULAR HGB CONC 31.9 g/dL (32.0-36.0); MEAN CORPUSCULAR VOLUME 88.4 fL (79-99); RED BLOOD CELL COUNT(AUTO) 3.72 MIL/uL (4.50-6.20); RED CELL DISTRIBUTION WIDTH 15.2 % (11.0-15.5); WHITE BLOOD COUNT (AUTO) 5.2 K/uL (4.8-10.8)
[2025-03-29 07:05] LABS: CREATININE 1.1 mg/dL (0.5-1.3); POTASSIUM 4.1 mmol/L (3.5-5.1)
--- NOTE | 2025-03-29 09:39 | PN ---
[facility] PROGRESS NOTE Date Patient Seen: March 29, 2025 Time of Visit: 10:35 Supervising Physician: [Dr. Chavez] Primary Care Physician: Dr. MERYL GROSS Outpatient Specialists: [ ] Inpatient Consults: [Dr. Rodriguez, Dr. Meza] PROBLEM LIST: Osteomyelitis of 2nd L-toe 2. DIABETES TYPE 2 UNCONTROLLED 3. ESSENTIAL HYPERTENSION 4. RIGHT BKA, POA 5. REMOTE HX OF CABG INTERVAL HISTORY: [PATIENT IS EVALUATED AT BEDSIDE. HE WAS ADMITTED FOR EVALUATION OF LEFT 2ND TOE ULCER. HE HAS A HISTORY OF RIGHT BKA IN 2013. HE HAD MRI OF THE LEFT FOOT PERFORMED, PENDING READING. DR. RODRIGUEZ HAS BEEN CONSULTED, PENDING EVALUATION. DR. MEZA HAS ALSO BEEN CONSULTED HAD ARTERIAL DOPPLER ORDERED. WILL FOLLOW UP WITH IMAGING STUDIES AND SPECIALIST RECOMMENDATIONS. HIS A1C IS 9.6 AND ESR IS 41, OTHERWISE LABS AND VITALS WERE UNREMARKABLE.] 03/27 patient evaluated at bedside. He has abnormal monophasic waveforms per arterial Doppler. His MRI of the foot confirms osteomyelitis. He is pending invasive angiogram to left lower extremity per cardio, likely for early next week. We will continue to follow up with recommendation from cardiology, pending surgical intervention. 03/28 patient is evaluated at bedside. BP is elevated. Most recent labs within normal limits, continues on IV antibiotics. Pending lower extremity angiogram per Cardiology early next week. We will await further recommendation postprocedure. No new concerns verbalized with the patient. 03/29 Patient has been initiated on amlodipine 10 mg daily, BP remains elevated but is improved. CBC and BNP are unremarkable, patient continues on IV antibiotics pending lower extremity angiogram and possible surgical procedure for osteomyelitis of left foot. REVIEW OF SYSTEMS: 12 point ROS reviewed with patient. Pertinent positives mentioned above. Otherwise negative. PHYSICAL EXAM: GENERAL: alert, weak, awake oriented x 3 HEENT: EOMI, Sclera non icteric, moist mucosa NECK: Supple, no JVD, trachea midline LUNGS: Clear breath sounds bilaterally. No wheezes HEART: Regular rate and rhythm. Normal S1 and S2, without murmurs ABD: Abdomen soft, nontender. Bowel sounds present EXT: Left foot cellulitis NEURO: Alert and oriented to person, follows commands Vital Signs (last 8hr) Date Time Temp Pulse Resp B/P (MAP) Pulse Ox O2 Delivery O2 Flow Rate FiO2 03/29/25 08:05 98.1 67 19 154/95 96 Room Air 03/29/25 04:00 98.1 66 18 151/81 94 Room Air LABS: Hematology Labs: Test 03/29/25 06:38 Range/Units White Blood Count 5.2 4.8-10.8 K/uL Red Blood Count 3.72 L 4.50-6.20 MIL/uL Hemoglobin 10.5 L 14.0-18.0 g/dL Hematocrit 32.9 L 42-54 % Mean Corpuscular Volume 88.4 79-99 fL Mean Corpuscular Hemoglobin 28.2 27.0-33.0 pg Mean Corpuscular Hemoglobin Concent 31.9 L 32.0-36.0 g/dL Red Cell Distribution Width 15.2 11.0-15.5 % Platelet Count 243 130-400 K/uL Mean Platelet Volume 9.4 7.5-10.5 fL Nucleated Red Blood Cells 0.0 0.0-0.19 % Chemistry Labs: Test 03/29/25 06:38 03/29/25 05:28 Range/Units Sodium Level 136 136-145 mmol/L Potassium Level 4.1 3.5-5.1 mmol/L Chloride Level 102 101-111 mmol/L Carbon Dioxide Level 30 21-32 mmol/L Blood Urea Nitrogen 11 7-18 mg/dL Creatinine 1.1 0.5-1.3 mg/dL Glomerular Filtration Rate Calc 68 >90 mL/min Random Glucose 213 H 70-105 mg/dL Total Calcium 8.6 8.5-10.1 mg/dL Whole Blood Glucose 234 H 70-110 MG/DL DIAGNOSTICS / RADIOLOGY RESULTS: [ ] PLAN NEURO: Minimize central acting medications as possible. Maintain fall precautions, adequate lighting during the day PULMONARY: Supplemental 02 as needed. Maintain aspiration precautions at all times CARDIOVASCULAR: Follow hemodynamics. Vital signs per facility protocol GI & NUTRITION: Continue with nutritional support. Continue stool softeners and laxatives as needed. KIDNEYS & ELECTROLYTES: Strict monitoring of intake, output and overall fluid balance. Avoid nephrotoxic medications to the extent possible. Medications to be dosed according to renal function. Monitor electrolytes and replace as needed ENDOCRINE: Maintain blood glucose between 100-180 at all times. Hypoglycemia protocol in place Obtain hemoglobin A1c INFECTIOUS DISEASE: Trend temperature, WBC and procalcitonin level Follow cultures, deescalate antibiotics as soon as possible. Panculture if new onset fever Vancomycin and cefepime ONCOLOGY/HEMATOLOGY/COAGULATION: Monitor for s/s of bleeding Monitor hemoglobin, coagulation studies as needed SKIN: Pressure ulcer prevention per facility protocol Specialty mattress Obtain MRI left foot to rule out osteomyelitis ORTHO/REHAB: Continue PT/OT Prophylaxis: Continue GI and DVT prophylaxis Code Status: Full Resuscitation Disposition: TBD Other: Total patient care time exceeds 35 minutes excluding all procedures. Case discussed with and the above plan was formulated. ANDRES VELASQUEZ March 29, 2025 09:39
--- NOTE | 2025-03-29 09:39 | PN ---
SUBJECTIVE: The patient is a very pleasant 79-year-old diabetic, male who is status post vmioi-[id number] amputation on the right. Hemoglobin A1c is 9.6. He has peripheral vascular disease and Cardiology is pending possible arteriogram and angioplasty procedure on Sunday. He has been followed for left leg cellulitis. MRI suggesting osteomyelitis to the fifth metatarsal, the second toe distally and possibly the first toe distally on that right side. He has monophasic waveforms distal to the SFA on the right. He is being followed for hyperlipidemia, diabetes, hypertension. His diabetes is uncontrolled with an A1c of 9.6. He has coronary artery disease, status post CABG, bioprosthetic valve replacement. He has pulmonary hypertension. He is on antiplatelet therapy with aspirin and Plavix. The patient is tentatively scheduled for arteriogram and angioplasty procedure on Sunday to evaluate the circulation status of the right lower extremity. The patient is currently without any complaints of significant pain. He is currently afebrile. His white count is within normal limits. He has a hemoglobin A1c of 6.9. REVIEW OF SYSTEMS: CONSTITUTIONAL: He has no pain to the left foot. HEENT: No problems with his eyes, ears, nose, or throat. GENITOURINARY: No dysuria. GASTROINTESTINAL: No dysphagia. MUSCULOSKELETAL: Hpuoh-oib-yfvg amputation on the right. MRI suggesting osteomyelitis distal phalanx first toe left, second toe left, and possibly the mid portion of the fifth metatarsal on the left. INTEGUMENT: He has a dry eschar to the tip of the left second toe. There is edema, erythema, and cellulitis to the left foot. OBJECTIVE: Exam today shows I cannot palpate his pedal pulses on the left. The left foot is cool. He has an eschar to the tip of the left second toe, dry and stable. He has a aqmxl-fdq-[id number] amputation on the right. His reflexes are diminished. His muscle strength is intact on the left. He has pedal joint and ankle joint range of motion within normal limits on the left. Toenails are thickened, but not elongated on the left. ASSESSMENT: Left lower extremity ischemia, abnormal arterial Doppler studies, monophasic waveforms distal to the femoral artery . PLAN: The patient may require a second toe amputation due to the osteomyelitis involving the left second toe depending on the results of his circulation evaluation. We will continue to follow the patient closely while in-house. TID: [id number] RECEIPT: [id number] [email or web address]
[2025-03-29] MEDS: citaLOPram 20 MG TABLET PO SCH (11:45)
--- NOTE | 2025-03-29 14:50 | PN ---
This is a 79-year-old male with a history of coronary artery disease status post CABG x2 with bioprosthetic aortic valve replacement and mitral valve repair 02/24/2014, severe mitral valve stenosis and tricuspid valve regurgitation deemed a poor candidate for repeat open thoracotomy, pulmonary hypertension (who group 2), peripheral arterial disease status post intervention to the right lower extremity with subsequent right BKA, hypertension, hyperlipidemia and type 2 diabetes mellitus. He was admitted 03/25/2025 due to left foot cellulitis/osteomyelitis involving the 5th metatarsal bone, 1st and 2nd distal phalanx. He underwent arterial Doppler 03/26/2025 which shows abnormal monophasic arterial waveforms in the left AT/PT and DP arteries. Peripheral angiogram has been recommended. His most recent echocardiogram 12/24/2024 demonstrates an ejection fraction of 55-60% with stage II diastolic dysfunction, severe mitral valve stenosis. He is currently in sinus rhythm with heart rates in the 60s. His most recent blood pressure is 153/70. White blood count 5.2, hemoglobin 10.5, hematocrit 32.9, platelets 243, creatinine 1.1, potassium 4.1. Blood cultures x2 03/25/2025 no growth after three days. He denies new cardiac complaints today. He denies pain to the left lower extremity, chest pain or shortness of breath. On exam, he is in no acute distress, regular rate and rhythm, lungs are clear to auscultation bilaterally. Assessment: 1. Cellulitis/osteomyelitis of the right foot. 2. Peripheral arterial disease with monophasic waveforms in the left AT/PT and DP arteries. 3. Coronary artery disease status post CABG x2 with bioprosthetic aortic valve replacement and mitral valve repair in February 2014. 4. Severe mitral valve stenosis deemed poor candidate for repeat open thoracotomy. 5. Preserved LVEF. 6. Pulmonary hypertension. 7. Hypertension. 8. Hyperlipidemia. 9. Type 2 diabetes mellitus. Plan: 1. He presented with cellulitis/osteomyelitis involving the right foot. He has known peripheral arterial disease of the left lower extremity. We recommend peripheral angiogram with possible intervention to the left lower extremity. 2. The procedure was discussed with the patient and he wishes to proceed. 3. Otherwise continue aspirin 81 mg once daily, clopidogrel 75 mg once daily, atorvastatin 40 mg once daily, metoprolol tartrate 25 mg twice daily and furosemide 20 mg once daily. 4. Continue amlodipine 10 mg once daily for management of hypertension. 5. Orders will be placed for peripheral angiogram. Make NPO after midnight. Vitals/Labs Vital Signs Date Time Temp Pulse Resp B/P (MAP) Pulse Ox O2 Delivery O2 Flow Rate FiO2 03/29/25 12:00 98.1 69 19 153/70 94 Room Air 03/28/25 20:05 0 21 Laboratory Tests 03/29/25 06:38 KENYA SAM March 29, 2025 14:50
[2025-03-29] MEDS: GABAPENTIN 300 MG CAPSULE PO SCH (21:43)
[2025-03-29] MEDS: GABApentin 100 MG CAPSULE PO SCH (21:43)
[2025-03-29] MEDS: INSULIN LISpro 100 UNIT/ML 3ML SQ SCH (22:22)
[2025-03-30] VITALS (17 sets, daily range): BP systolic 115–161; BP diastolic 41–77; PULSE 60–75; RESP 18; TEMP 97.4–98.1; O2SAT 96
[2025-03-30 05:50] LABS: HEMATOCRIT 31.6 % (42-54); MEAN CORPUSCULAR HEMOGLOBIN 28.9 pg (27.0-33.0); MEAN CORPUSCULAR HGB CONC 32.6 g/dL (32.0-36.0); MEAN CORPUSCULAR VOLUME 88.5 fL (79-99); RED BLOOD CELL COUNT(AUTO) 3.57 MIL/uL (4.50-6.20); RED CELL DISTRIBUTION WIDTH 15.1 % (11.0-15.5); WHITE BLOOD COUNT (AUTO) 7.4 K/uL (4.8-10.8)
[2025-03-30 06:15] LABS: POTASSIUM 3.8 mmol/L (3.5-5.1)
[2025-03-30 06:17] LABS: INR 1.05 (0.85-1.15); PROTHROMBIN TIME 11.1 SEC (9.6-11.6)
[2025-03-30 06:18] LABS: PARTIAL THROMBOPLASTIN TIME 29.1 SEC (26.3-35.5)
--- NOTE | 2025-03-30 06:38 | PN ---
SUBJECTIVE: The patient is a very pleasant 79-year-old diabetic, [place] male, followed up for osteomyelitis and gangrene distal second toe, possibly first distal phalanx, possibly the distal mid portion of the first metatarsal. The patient is being followed by the Cardiology Service. He is being followed for cellulitis and osteomyelitis and gangrene to his foot on the left, being followed for peripheral vascular disease, coronary artery disease, pulmonary hypertension, hypertension, hyperlipidemia, diabetes mellitus type 2. Orders have been placed for peripheral angiography. He has been NPO after midnight. Currently been afebrile at 98.6, pulse 66, respirations 18, blood pressure 115/73. White count 5.2, H and H 10.5 and 32.9. Hemoglobin A1c is 6.9. He is currently receiving the Plavix and the aspirin. REVIEW OF SYSTEMS: CONSTITUTIONAL: Having no pain to the left foot. HEENT: No problems with eyes, ears, nose, or throat. CARDIOVASCULAR: No chest pain. RESPIRATORY: No shortness of breath. GENITOURINARY: No dysuria. GASTROINTESTINAL: No dysphagia. MUSCULOSKELETAL: Mihjz-qhg-cdpw amputation on the right. MRI suggesting distal phalanx osteomyelitis first toe, second toe, and possibly the mid portion of the metatarsal on the left. INTEGUMENT: He has some dry eschar to the tip of the left second toe. There is edema, erythema, and cellulitis of the left foot. OBJECTIVE: On examination today, I cannot palpate his pedal pulses on the left. Left foot is cool. He has an ulcer with an eschar to the tip of the left second toe, dry and stable. He has a [id number]-twm-vfjl amputation on the right. Reflexes diminished. Muscle strength is intact. Pedal joint range of motion within normal limits. Toenails are thickened, but not elongated. ASSESSMENT: Peripheral vascular disease, gangrene, osteomyelitis. Pending evaluation of his circulation status today in the color laboratory technician by the Cardiology Service. PLAN: We will await evaluation of his circulation status in the color laboratory technician today and I will discuss treatment options for the patient's left foot gangrene and osteomyelitis after the completion of the evaluation of his circulation status. Continue with the antibiotics. The patient is receiving currently vancomycin and cefepime. TID: [id number] RECEIPT: [id number]
[2025-03-30] MEDS ORDERED: INSULIN LISpro 100 UNIT/ML 3ML SQ SCH (07:30)
--- NOTE | 2025-03-30 08:46 | PN ---
[facility] PROGRESS NOTE Date Patient Seen: March 30, 2025 Time of Visit: 08:46 Supervising Physician: [Dr. Chavez] Primary Care Physician: Dr. MERYL GROSS Outpatient Specialists: [ ] Inpatient Consults: [Dr. Rodriguez, Dr. Meza] PROBLEM LIST: Osteomyelitis of 2nd L-toe 2. DIABETES TYPE 2 UNCONTROLLED 3. ESSENTIAL HYPERTENSION 4. RIGHT BKA, POA 5. REMOTE HX OF CABG INTERVAL HISTORY: [PATIENT IS EVALUATED AT BEDSIDE. HE WAS ADMITTED FOR EVALUATION OF LEFT 2ND TOE ULCER. HE HAS A HISTORY OF RIGHT BKA IN 2013. HE HAD MRI OF THE LEFT FOOT PERFORMED, PENDING READING. DR. RODRIGUEZ HAS BEEN CONSULTED, PENDING EVALUATION. DR. MEZA HAS ALSO BEEN CONSULTED HAD ARTERIAL DOPPLER ORDERED. WILL FOLLOW UP WITH IMAGING STUDIES AND SPECIALIST RECOMMENDATIONS. HIS A1C IS 9.6 AND ESR IS 41, OTHERWISE LABS AND VITALS WERE UNREMARKABLE.] 03/27 patient evaluated at bedside. He has abnormal monophasic waveforms per arterial Doppler. His MRI of the foot confirms osteomyelitis. He is pending invasive angiogram to left lower extremity per cardio, likely for early next week. We will continue to follow up with recommendation from cardiology, pending surgical intervention. 03/28 patient is evaluated at bedside. BP is elevated. Most recent labs within normal limits, continues on IV antibiotics. Pending lower extremity angiogram per Cardiology early next week. We will await further recommendation postprocedure. No new concerns verbalized with the patient. 03/29 Patient has been initiated on amlodipine 10 mg daily, BP remains elevated but is improved. CBC and BNP are unremarkable, patient continues on IV antibiotics pending lower extremity angiogram and possible surgical procedure for osteomyelitis of left foot. 03/30 Patient is evaluated at bedside. He is pending a lower extremity angiogram today. We will follow up with findings and recommendation per Cardiology. Patient will still need podiatry, possible ortho evaluation placed on findings. REVIEW OF SYSTEMS: 12 point ROS reviewed with patient. Pertinent positives mentioned above. Otherwise negative. PHYSICAL EXAM: GENERAL: alert, weak, awake oriented x 3 HEENT: EOMI, Sclera non icteric, moist mucosa NECK: Supple, no JVD, trachea midline LUNGS: Clear breath sounds bilaterally. No wheezes HEART: Regular rate and rhythm. Normal S1 and S2, without murmurs ABD: Abdomen soft, nontender. Bowel sounds present EXT: Left foot cellulitis NEURO: Alert and oriented to person, follows commands Vital Signs (last 8hr) Date Time Temp Pulse Resp B/P (MAP) Pulse Ox O2 Delivery O2 Flow Rate FiO2 03/30/25 07:35 97.9 75 18 130/74 90 Room Air 03/30/25 04:00 98.1 66 18 115/73 97 Room Air LABS: Hematology Labs: Test 03/30/25 05:37 Range/Units White Blood Count 7.4 # 4.8-10.8 K/uL Red Blood Count 3.57 L 4.50-6.20 MIL/uL Hemoglobin 10.3 L 14.0-18.0 g/dL Hematocrit 31.6 L 42-54 % Mean Corpuscular Volume 88.5 79-99 fL Mean Corpuscular Hemoglobin 28.9 27.0-33.0 pg Mean Corpuscular Hemoglobin Concent 32.6 32.0-36.0 g/dL Red Cell Distribution Width 15.1 11.0-15.5 % Platelet Count 230 130-400 K/uL Mean Platelet Volume 9.2 7.5-10.5 fL Nucleated Red Blood Cells 0.0 0.0-0.19 % Chemistry Labs: Test 03/30/25 05:37 03/30/25 05:36 Range/Units Sodium Level 136 136-145 mmol/L Potassium Level 3.8 3.5-5.1 mmol/L Chloride Level 103 101-111 mmol/L Carbon Dioxide Level 27 21-32 mmol/L Blood Urea Nitrogen 17 7-18 mg/dL Creatinine 1.0 0.5-1.3 mg/dL Glomerular Filtration Rate Calc 77 >90 mL/min Random Glucose 95 # 70-105 mg/dL Total Calcium 8.8 8.5-10.1 mg/dL Whole Blood Glucose 95 # 70-110 MG/DL Coagulation Labs: Test 03/30/25 05:37 Range/Units Prothrombin Time 11.1 9.6-11.6 SEC Prothromb Time International Ratio 1.05 0.85-1.15 Activated Partial Thromboplast Time 29.1 26.3-35.5 SEC DIAGNOSTICS / RADIOLOGY RESULTS: [ ] PLAN NEURO: Minimize central acting medications as possible. Maintain fall precautions, adequate lighting during the day PULMONARY: Supplemental 02 as needed. Maintain aspiration precautions at all times CARDIOVASCULAR: Follow hemodynamics. Vital signs per facility protocol GI & NUTRITION: Continue with nutritional support. Continue stool softeners and laxatives as needed. KIDNEYS & ELECTROLYTES: Strict monitoring of intake, output and overall fluid balance. Avoid nephrotoxic medications to the extent possible. Medications to be dosed according to renal function. Monitor electrolytes and replace as needed ENDOCRINE: Maintain blood glucose between 100-180 at all times. Hypoglycemia protocol in place Obtain hemoglobin A1c INFECTIOUS DISEASE: Trend temperature, WBC and procalcitonin level Follow cultures, deescalate antibiotics as soon as possible. Panculture if new onset fever Vancomycin and cefepime ONCOLOGY/HEMATOLOGY/COAGULATION: Monitor for s/s of bleeding Monitor hemoglobin, coagulation studies as needed SKIN: Pressure ulcer prevention per facility protocol Specialty mattress Obtain MRI left foot to rule out osteomyelitis ORTHO/REHAB: Continue PT/OT Prophylaxis: Continue GI and DVT prophylaxis Code Status: Full Resuscitation Disposition: TBD Other: Total patient care time exceeds 35 minutes excluding all procedures. Case discussed with my supervising physician and the above plan was formulated. ANDRES VELASQUEZ March 30, 2025 08:46
[2025-03-30] MEDS ORDERED: LIDOCAINE HCL 400MG/20ML VIAL ONE (12:23)
[2025-03-30] MEDS ORDERED: IODIXANOL 320 MG/ML 100 ML VIAL ONE (12:23)
[2025-03-30] MEDS ORDERED: HEParin 10,000 UNIT/10ML (1,000 UNIT/ML) VIAL ONE (12:23)
[2025-03-30] MEDS ORDERED: niCARDIpine 25MG INJ IV ONE (12:23)
[2025-03-30] MEDS ORDERED: HEParin-NS 1,000 UNIT/500 ML 1,000 ML IV ONE (12:23)
[2025-03-30] MEDS ORDERED: NITROGLYCERIN 50MG VIAL ONE ×2 (12:23→14:06)
[2025-03-30] MEDS ORDERED: FENTanyl CITRate PF 50 MCG/1 ML 2ML VIAL ONE ×2 (12:50→14:53)
[2025-03-30] MEDS ORDERED: MIDAZOLAM HCL 1 MG/ML 2ML VIAL ONE ×2 (12:50→14:14)
[2025-03-30] MEDS ORDERED: HEParin-NS 1,000 UNIT/500 ML 500 ML IV ONE (13:57)
[2025-03-30] MEDS ORDERED: cloPIDOgrel 300MG TAB ONE (15:30)
[2025-03-30] MEDS ORDERED: GLUCAGON 1MG KIT 1 MG ML IM PRN (16:00)
--- NOTE | 2025-03-30 16:29 | PRN ---
Procedure:Peripheral Angiogram Procedure Note Procedure Note: Peripheral Angiogram Date/Time of Service: 03/30/2025 Referring Physician: Dr. Aguirre Procedures Performed: Lower abdominal aortogram, peripheral angiogram with lower extremity arterial runoff, orbital atherectomy, balloon lithotripsy of the left anterior tibial artery, balloon angioplasty of the distal left peroneal artery Indications for Procedure: PAD, Whitman category five symptoms (left lower extremity) Gangrene in multiple digits in the left foot Osteomyelitis in multiple digits in the left foot DM II Osteomyelitis s/p right sided BKA Description of Procedure: [After informed consent was obtained the patient was prepped and draped in the usual sterile fashion a 6 Gambian arterial sheath with a hemostatic valve was inserted into the right common femoral artery using a modified Salinger technique on the first pass front wall puncture. A 5 Gambian Omni Flush catheter was then advanced over a soft angled Glidewire into the abdominal aorta and a lower abdominal aortogram with runoff was obtained. The findings are listed below. The Omni flush catheter was then advanced to the left common femoral artery and a left lower extremity arteriogram was obtained. The findings are listed below.] Findings: Lower abdominal aorta: patent Right common iliac artery: patent Right external iliac artery: patent Right internal iliac artery: patent Right common femoral artery: patent Right profunda artery: patent Left common iliac artery: patent Left external iliac artery: patent Left internal iliac artery: patent Left common femoral artery: patent Left profunda artery: patent Left superficial femoral artery: patent, with 30% stenosis in the mid segment of the artery Left popliteal artery: 30% stenosis in the mid segment of the artery Left anterior tibial artery: 100% stenosis (TAPER/FINISHER = 200 mm) in the proximal segment of the artery. The artery reconstitutes distally via collateral blood flow Left tibioperoneal artery: patent Left peroneal artery: 100% stenosis (TAPER/FINISHER = 20 mm) in the distal segment of the artery. Left posterior tibial artery: 100% stenosis (TAPER/FINISHER > 240 mm) in the proximal segment of the artery. The artery does not reconstitute distally via collateral blood flow Left Pedal arch: Incomplete, with collateral blood flow supplying remnants of the anterior and posterior pedal arch Intervention: After reviewing the above-mentioned findings the decision was made to intervene on the left anterior tibial artery. The soft angled Glidewire was inserted into the Omni flush catheter and was advanced to the left popliteal artery. The Omni flush catheter was then removed and the short six Gambian arterial sheath was exchanged for a 65 cm six Gambian destination arterial sheath. The patient was then administered heparin 75 units/kg, clopidogrel 300 mg x 1 dose and aspirin 325 mg x 1 dose. We then advanced a 0.014 whisper guidewire and 0.014 quick cross catheter across the areas stenosis and into the proximal left dorsalis pedis artery. We then removed the whisper guidewire and injected contrast into the quick cross catheter, to ensure that were in the true lumen of the artery. Once this was complete we inserted a Viper wire into the quick cross catheter and advanced it into the mid left dorsalis pedis artery. We then removed the quick cross catheter and performed multiple passes of orbital atherectomy (CSI 1.25 solid) in the proximal, mid, and distal segments of the left anterior tibial artery. We then performed balloon angioplasty (2.0-1.5 x 210 mm) and balloon lithotripsy (shockwave 2.5 x 80 mm) in the proximal, mid, and distal left anterior tibial artery. We then removed the balloons and repeat angiography which revealed a widely patent proximal and mid left anterior tibial artery with, with slow blood flow in the distal segment of the artery, likely secondary to poor runoff in the left dorsalis pedis artery. The decision was then made pulled the wire back and attempt to fix the stenosis in the distal left peroneal artery. We advanced a miracle 12g guidewire 10 quick cross catheter across the areas stenosis and into the distal left peroneal artery. We then removed the guidewire and injected contrast through the quick cross catheter to ensure that were in the true lumen of the left peroneal artery. Once this was complete we inserted a BMW guidewire, which did not track well. So it was exchanged for a 0.014 run-through guidewire, which was then placed in the distal left peroneal artery. We then removed the quick cross catheter and performed balloon angioplasty (1.5 x 20 mm) in the distal left peroneal artery. We then attempted to perform balloon lithotripsy in the distal left peroneal artery, but were unsuccessful. The decision was then made to stop. The guidewire was removed and repeat angiography was performed, which revealed a widely patent left peroneal artery with the improved collateral blood flow into the left foot/pedal arch. The 65 cm six Gambian destination arterial sheath was then removed and the arteriotomy site in the right common femoral artery was successfully closed using a six Gambian Angio-Seal device. The patient tolerated the procedure well and without issue. Estimated Blood Loss: [40]mL Complications: [ None] Conclusion: 1. PAD, Margarita category five symptoms (left lower extremity), 100% stenosis in the proximal left anterior tibial artery status post treatment with orbital atherectomy (CSI 1.25 mm solid), balloon angioplasty, and balloon lithotripsy and 100% stenosis in the distal left peroneal artery status post successful treatment with balloon angioplasty, resulting in improve collateral blood flow filling of the left foot/pedal arch 2. Residual PAD, 100% stenosis in the distal left anterior tibial artery/dorsalis pedis artery and 100% stenosis in the proximal left posterior tibial artery. The arteries do not reconstitute distally 3. Gangrene affecting multiple digits in the left foot 4. Osteomyelitis in multiple digits in the left foot 5. DM II 6. Osteomyelitis s/p right sided BKA Recommendations/Instructions: 1. Continue goal-directed medical therapy. 2. Continue aspirin 81 mg daily and clopidogrel 75 mg daily for a minimum of six months. 3. Groin precautions 4. 4 hours of bedrest 5. Start NS at 100 mL/hour. 6. We will order TCOMs of the left foot to assess wound healing potential. 7. We do not recommend surgical intervention in the left foot until the TCOMs return 8. Continue with IV antibiotics BRETT MEZA MD March 30, 2025 16:29
[2025-03-30] MEDS: 0.9%NACL 1000ML 1,000 ML IV SCH (19:16)
[2025-03-30] MEDS: traMADol HCL 50 MG TABLET PO PRN (20:43)
[2025-03-30] MEDS ORDERED: acetaMINOPHEN 325 MG TAB PO PRN (21:00)
[2025-03-31] VITALS (7 sets, daily range): BP systolic 114–153; BP diastolic 60–94; PULSE 70–79; RESP 16–20; TEMP 97.9–98.6; O2SAT 97
--- NOTE | 2025-03-31 06:48 | PN ---
SUBJECTIVE: The patient is a 79-year-old diabetic Latin-E[place]ian male who is followed up for eschar ulcer to his left second toe with documented osteomyelitis, possible osteomyelitis of the distal and mid portion of the fifth metatarsal and distal portion of the first metatarsal. The patient [place] yesterday and per Cardiology, the patient has severe microvascular disease. Intervention could only be performed at the peroneal artery. He had occlusion nonoperable of the posterior tibial artery and severe disease to the anterior tibial artery, not amenable to revascularization procedure. The patient is currently afebrile, white count 7.4, T-max 98.1, pulse 70, respirations 16, blood pressure 140/60. White count is 7.4, H and H 10.3 and 31.6. BUN and creatinine level is 17 and 1.0. Blood sugar 191. The patient is currently receiving IV vancomycin and IV cefepime. The patient's blood cultures are no growth x 5 days. The patient as well complains of pain to the left foot. The patient is being followed by the [facility]. REVIEW OF SYSTEMS: CONSTITUTIONAL: Having no chills, no fevers, no night sweats. GASTROINTESTINAL: No nausea, no vomiting, no diarrhea. ENDOCRINE: Hemoglobin A1c of 9.6. PSYCHIATRIC: Denied any depression. MUSCULOSKELETAL: Knee amputation on the right. MRI suggesting distal phalanx osteomyelitis, first and second toes and possibly the midportion of the fifth metatarsal on the left. INTEGUMENTARY: He has dry eschar to the tip of the left second toe. There is mild edema, erythema and cellulitis of the left foot. OBJECTIVE: Examination today, I cannot palpate the pedal pulses on the left. Left foot is cool. Ulcer eschar to the tip of the left second toe, dry and stable. He has a [id number] amputation on the right. ASSESSMENT: Peripheral vascular disease, nonoperable on the left, gangrene and osteomyelitis of the left foot stable, afebrile, white count within normal limits, receiving broad spectrum antibiotic therapy. PLAN: I do not have any plans for surgical intervention for this patient due to the severity of his nonoperable peripheral vascular disease. The patient's options at this point include palliative measures with local wound care and IV antibiotics versus a definitive amputation surgery with a level to be determined by Orthopedic Surgery and the Cardiology Service if patient and family members are agreeable to this. We will continue to follow the patient closely while in-house. TID: [id number] RECEIPT: [id number]
--- NOTE | 2025-03-31 09:16 | PN ---
Cardiology Progress Note Date of Service: 03/31/2025 Attending Peanut Farmer: Dr. Lucho Beatty Reason for Consult: PAD Problem List: -Nonhealing ulcer affecting the 2nd digit of the left foot with osteomyelitis affecting the 1st, 2nd, and 5th digits of the left foot -PAD, Margarita category 5 symptoms (LLE) s/p successful treatment with orbital atherectomy, balloon angioplasty, and balloon lithotripsy in the proximal SY and balloon angioplasty in the distal peroneal artery done on 03/30/[address] Beatty -Residual left lower extremity PAD (100% stenosis in the distal SY/DPA and 100% stenosis in the proximal SENIOR SUPPORT ANALYST) identified on peripheral angiogram done 03/30/2025 -HTN -HLP -DM2 -PAD s/p right lower extremity peripheral intervention s/p right BKA -CAD s/p CABG with concomitant bioprosthetic AVR -Hypochromic anemia -Noncompliance Subjective: This is a 79-year-old male who was seen and evaluated at the bedside today. The patient underwent successful left lower extremity percutaneous peripheral intervention yesterday by Dr. Beatty. The patient tolerated the procedure well, but postoperatively has had oozing from the right femoral access site. He denies any active complaints including chest pain, chest pressure, palpitations, shortness for breath, or lower extremity pain. As per the nurse, there were no overnight events. Vitals/Labs Vital Signs Date Time Temp Pulse Resp B/P (MAP) Pulse Ox O2 Delivery O2 Flow Rate FiO2 03/31/25 08:05 98.1 72 20 127/71 98 Room Air 03/30/25 19:15 0 21 General: Awake and alert. No acute distress. Chronically ill appearing. HEENT: Normocephalic, atraumatic. EOMI. Oral mucosa was moist. Neck: No masses, JVD, or carotid bruits. Lungs: No respiratory distress. SCM. Bilateral air entry. Clear to auscultation bilaterally. No obvious wheezing, rales, or rhonchi noted. Cardio: Regular rate. Normal S1 and S2, +S4. Systolic murmur best heard at the RUSB. Abdomen: Soft, nontender, nondistended. No organomegaly. Normoactive bowel sounds x 4 quadrants. Extremities. Right BKA. 1+ nonpitting edema seen in the left lower extremity. There is a nonhealing ulcer on the distal aspect of the 2nd digit of the left foot. The left AT, DP, and PT pulses were verified via Doppler ultrasound. The right groin access site is soft to palpation and free of significant bruising or hematoma formation, but sanguinous oozing noted from the puncture site. Neuro: Cranial nerves II through XII are grossly intact. No obvious focal deficits identified. Assessment: -Nonhealing ulcer affecting the 2nd digit of the left foot with osteomyelitis affecting the 1st, 2nd, and 5th digits of the left foot -PAD, Bland category 5 symptoms (LLE) s/p successful treatment with orbital atherectomy, balloon angioplasty, and balloon lithotripsy in the proximal SY and balloon angioplasty in the distal peroneal artery done on 03/30/[address] Beatty -Residual left lower extremity PAD (100% stenosis in the distal SY/DPA and 100% stenosis in the proximal SENIOR SUPPORT ANALYST) identified on peripheral angiogram done 03/30/2025 -HTN -HLP -DM2 -PAD s/p right lower extremity peripheral intervention s/p right BKA -CAD s/p CABG with concomitant bioprosthetic AVR -Hypochromic anemia -Noncompliance Plan: 1. PAD, Bland category 5 symptoms (LLE) s/p successful treatment with orbital atherectomy, balloon angioplasty, and balloon lithotripsy in the proximal SY and balloon angioplasty in the distal peroneal artery done on 03/30/[address] Beatty -Stable -PE: The left AT, DP, and PT pulses were verified via Doppler ultrasound. The right groin access site is soft to palpation and free of significant bruising or hematoma formation, but sanguinous oozing noted from the puncture site. -The previous dressing to the right groin access site was removed and a thrombin pad and pressure dressing was reapplied. -We are pending the TCOM analysis in order to assess the patient's potential for wound healing/candidacy for HBO therapy. -In the meantime, he will continue on GDM MT with aspirin 81 mg daily, clopi dogrel 75 mg daily, and atorvastatin 40 mg QHS. -In addition, he should continue with aggressive wound care and antibiotic thera py. 2. CAD s/p CABG with concomitant bioprosthetic AVR -Stable and without issue -Continue aspirin 81 mg daily, metoprolol tartrate 25 mg BID, and atorvastatin 40 mg QHS. This case was discussed with my Supervising Physician, Dr. Lucho Beatty, and the above mentioned plan was formulated and agreed upon. -Progress Note written by Evelio Cleveland, MSN, CONFIGURATION SPECIALIST, AGACNP- EVELIO CLEVELAND NP March 31, 2025 09:16
[2025-03-31 09:36] LABS: HEMATOCRIT 32.4 % (42-54); MEAN CORPUSCULAR HEMOGLOBIN 28.3 pg (27.0-33.0); MEAN CORPUSCULAR HGB CONC 31.5 g/dL (32.0-36.0); RED BLOOD CELL COUNT(AUTO) 3.6 MIL/uL (4.50-6.20); RED CELL DISTRIBUTION WIDTH 15.3 % (11.0-15.5); WHITE BLOOD COUNT (AUTO) 6.4 K/uL (4.8-10.8)
[2025-03-31 09:48] LABS: CREATININE 0.9 mg/dL (0.5-1.3); POTASSIUM 4.7 mmol/L (3.5-5.1)
[2025-03-31 09:52] LABS: ALBUMIN 3.1 g/dL (3.5-5.0); BILIRUBIN,TOTAL 0.9 mg/dL (0.2-1.0); MAGNESIUM 2.6 mg/dL (1.80-2.40); TOTAL PROTEIN, SERUM 6.7 g/dL (6.0-8.3)
--- NOTE | 2025-03-31 13:22 | PN ---
[facility] PROGRESS NOTE Date Patient Seen: March 31, 2025 Time of Visit: 13:22 Supervising Physician: [Dr. Chavez] Primary Care Physician: Dr. MERYL GROSS Outpatient Specialists: [ ] Inpatient Consults: [Dr. Rodriguez, Dr. Meza] PROBLEM LIST: Osteomyelitis of 2nd L-toe Severe PAD with 100% stenosis in L-anterior/posterior tibial artery 2. DIABETES TYPE 2 UNCONTROLLED 3. ESSENTIAL HYPERTENSION 4. RIGHT BKA, POA 5. REMOTE HX OF CABG INTERVAL HISTORY: [PATIENT IS EVALUATED AT BEDSIDE. HE WAS ADMITTED FOR EVALUATION OF LEFT 2ND TOE ULCER. HE HAS A HISTORY OF RIGHT BKA IN 2013. HE HAD MRI OF THE LEFT FOOT PERFORMED, PENDING READING. DR. RODRIGUEZ HAS BEEN CONSULTED, PENDING EVALUATION. DR. MEZA HAS ALSO BEEN CONSULTED HAD ARTERIAL DOPPLER ORDERED. WILL FOLLOW UP WITH IMAGING STUDIES AND SPECIALIST RECOMMENDATIONS. HIS A1C IS 9.6 AND ESR IS 41, OTHERWISE LABS AND VITALS WERE UNREMARKABLE.] 03/27 patient evaluated at bedside. He has abnormal monophasic waveforms per arterial Doppler. His MRI of the foot confirms osteomyelitis. He is pending invasive angiogram to left lower extremity per cardio, likely for early next week. We will continue to follow up with recommendation from cardiology, pending surgical intervention. 03/28 patient is evaluated at bedside. BP is elevated. Most recent labs within normal limits, continues on IV antibiotics. Pending lower extremity angiogram per Cardiology early next week. We will await further recommendation postprocedure. No new concerns verbalized with the patient. 03/29 Patient has been initiated on amlodipine 10 mg daily, BP remains elevated but is improved. CBC and BNP are unremarkable, patient continues on IV antibiotics pending lower extremity angiogram and possible surgical procedure for osteomyelitis of left foot. 03/30 Patient is evaluated at bedside. He is pending a lower extremity angiogram today. We will follow up with findings and recommendation per Cardiology. Patient will still need podiatry, possible ortho evaluation placed on findings. 03/31 patient was evaluated at bedside. He is status post lower extremity angiogram with findings noted per report. He does have significant peripheral vascular disease which limits his surgical options for osteomyelitis. Podiatry is not recommending any surgical intervention from their standpoint. Cardiology will follow up with TCOM studies. We will consult ortho for evaluation and possible BKA vs AKA. REVIEW OF SYSTEMS: 12 point ROS reviewed with patient. Pertinent positives mentioned above. Otherwise negative. PHYSICAL EXAM: GENERAL: alert, weak, awake oriented x 3 HEENT: EOMI, Sclera non icteric, moist mucosa NECK: Supple, no JVD, trachea midline LUNGS: Clear breath sounds bilaterally. No wheezes HEART: Regular rate and rhythm. Normal S1 and S2, without murmurs ABD: Abdomen soft, nontender. Bowel sounds present EXT: Left foot cellulitis NEURO: Alert and oriented to person, follows commands Vital Signs (last 8hr) Date Time Temp Pulse Resp B/P (MAP) Pulse Ox O2 Delivery O2 Flow Rate FiO2 03/31/25 11:48 98.2 76 20 153/94 100 Room Air 03/31/25 08:05 98.1 72 20 127/71 98 Room Air LABS: Hematology Labs: Test 03/31/25 09:23 Range/Units White Blood Count 6.4 4.8-10.8 K/uL Red Blood Count 3.60 L 4.50-6.20 MIL/uL Hemoglobin 10.2 L 14.0-18.0 g/dL Hematocrit 32.4 L 42-54 % Mean Corpuscular Volume 90.0 79-99 fL Mean Corpuscular Hemoglobin 28.3 27.0-33.0 pg Mean Corpuscular Hemoglobin Concent 31.5 L 32.0-36.0 g/dL Red Cell Distribution Width 15.3 11.0-15.5 % Platelet Count 223 130-400 K/uL Mean Platelet Volume 9.2 7.5-10.5 fL Nucleated Red Blood Cells 0.0 0.0-0.19 % Chemistry Labs: Test 03/31/25 11:17 03/31/25 09:23 Range/Units Whole Blood Glucose 246 H 70-110 MG/DL Bedside Glucose Comment Notified Nurse Sodium Level 136 136-145 mmol/L Potassium Level 4.7 3.5-5.1 mmol/L Chloride Level 103 101-111 mmol/L Carbon Dioxide Level 29 21-32 mmol/L Blood Urea Nitrogen 23 H 7-18 mg/dL Creatinine 0.9 0.5-1.3 mg/dL Glomerular Filtration Rate Calc 87 >90 mL/min Random Glucose 242 H 70-105 mg/dL Total Calcium 8.4 L 8.5-10.1 mg/dL Magnesium Level 2.60 H 1.80-2.40 mg/dL Total Bilirubin 0.9 0.2-1.0 mg/dL Aspartate Amino Transf (AST/SGOT) 25 10-37 U/L Alanine Aminotransferase (ALT/SGPT) 16 12-78 U/L Alkaline Phosphatase 132 50-136 U/L Total Protein 6.7 6.0-8.3 g/dL Albumin 3.1 L 3.5-5.0 g/dL Coagulation Labs: Test 03/30/25 15:52 03/30/25 05:37 Range/Units Activated Clotting Time 359 H 100-180 SEC Prothrombin Time 11.1 9.6-11.6 SEC Prothromb Time International Ratio 1.05 0.85-1.15 Activated Partial Thromboplast Time 29.1 26.3-35.5 SEC DIAGNOSTICS / RADIOLOGY RESULTS: [ ] PLAN Continue DAPT time spent on six months for cardio Follow up on TCOM studies Consult Orthopedic surgery for evaluation Continue local wound care NEURO: Minimize central acting medications as possible. Maintain fall precautions, adequate lighting during the day PULMONARY: Supplemental 02 as needed. Maintain aspiration precautions at all times CARDIOVASCULAR: Follow hemodynamics. Vital signs per facility protocol GI & NUTRITION: Continue with nutritional support. Continue stool softeners and laxatives as needed. KIDNEYS & ELECTROLYTES: Strict monitoring of intake, output and overall fluid balance. Avoid nephrotoxic medications to the extent possible. Medications to be dosed according to renal function. Monitor electrolytes and replace as needed ENDOCRINE: Maintain blood glucose between 100-180 at all times. Hypoglycemia protocol in place Obtain hemoglobin A1c INFECTIOUS DISEASE: Trend temperature, WBC and procalcitonin level Follow cultures, deescalate antibiotics as soon as possible. Panculture if new onset fever Vancomycin and cefepime ONCOLOGY/HEMATOLOGY/COAGULATION: Monitor for s/s of bleeding Monitor hemoglobin, coagulation studies as needed SKIN: Pressure ulcer prevention per facility protocol Specialty mattress ORTHO/REHAB: Continue PT/OT Prophylaxis: Continue GI and DVT prophylaxis Code Status: Full Resuscitation Disposition: TBD Other: Total patient care time exceeds 35 minutes excluding all procedures. Case discussed with my supervising physician and the above plan was formulated. ANDRES VELASQUEZ March 31, 2025 13:22
[2025-04-01 03:16] VITALS: BP 119/75; PULSE 71; RESP 18; TEMP 99
[2025-04-01 08:00] VITALS: BP 122/71; PULSE 79; RESP 18; TEMP 98.3; O2SAT 97
--- NOTE | 2025-04-01 09:56 | PN ---
[facility] PROGRESS NOTE Date Patient Seen: April 01, 2025 Time of Visit: 09:33 Supervising Physician: [Dr. Lindsey] Primary Care Physician: Dr. MERYL GROSS Outpatient Specialists: [ ] Inpatient Consults: [Dr. Rodriguez, Dr. Meza] PROBLEM LIST: Osteomyelitis of 2nd L-toe Severe PAD with 100% stenosis in L-anterior/posterior tibial artery 2. DIABETES TYPE 2 UNCONTROLLED 3. ESSENTIAL HYPERTENSION 4. RIGHT BKA, POA 5. REMOTE HX OF CABG INTERVAL HISTORY: [PATIENT IS EVALUATED AT BEDSIDE. HE WAS ADMITTED FOR EVALUATION OF LEFT 2ND TOE ULCER. HE HAS A HISTORY OF RIGHT BKA IN 2013. HE HAD MRI OF THE LEFT FOOT PERFORMED, PENDING READING. DR. RODRIGUEZ HAS BEEN CONSULTED, PENDING EVALUATION. DR. MEZA HAS ALSO BEEN CONSULTED HAD ARTERIAL DOPPLER ORDERED. WILL FOLLOW UP WITH IMAGING STUDIES AND SPECIALIST RECOMMENDATIONS. HIS A1C IS 9.6 AND ESR IS 41, OTHERWISE LABS AND VITALS WERE UNREMARKABLE.] 03/27 patient evaluated at bedside. He has abnormal monophasic waveforms per arterial Doppler. His MRI of the foot confirms osteomyelitis. He is pending invasive angiogram to left lower extremity per cardio, likely for early next week. We will continue to follow up with recommendation from cardiology, pend ing surgical intervention. 03/28 patient is evaluated at bedside. BP is elevated. Most recent labs within normal limits, continues on IV antibiotics. Pending lower extremity angiogram per Cardiology early next week. We will await further recommendation postprocedure. No new concerns verbalized with the patient. 03/29 Patient has been initiated on amlodipine 10 mg daily, BP remains elevated but is improved. CBC and BNP are unremarkable, patient continues on IV antibiotics pending lower extremity angiogram and possible surgical procedure for osteomyelitis of left foot. 03/30 Patient is evaluated at bedside. He is pending a lower extremity angiogram today. We will follow up with findings and recommendation per Cardiology. Patient will still need podiatry, possible ortho evaluation placed on findings. 03/31 patient was evaluated at bedside. He is status post lower extremity angiogram with findings noted per report. He does have significant peripheral vascular disease which limits his surgical options for osteomyelitis. Podiatry is not recommending any surgical intervention from their standpoint. Cardiology will follow up with TCOM studies. We will consult ortho for evaluation and possible BKA vs AKA. 04/01 patient was evaluated at bedside. He is upset due to not having an updated status on his treatment plan. He was advised that he underwent multiple tests w hile admitted. He continues on IV antibiotics. He was advised of T com study performed yesterday, pending further recommendation per Cardiology. Patient was reassured that tests and studies are being performed in order to formulate the most appropriate plan for him. He has a history of right BKA and would like to avoid the same on his left lower extremity. We will follow up with further recommendation from Cardiology and Podiatry. REVIEW OF SYSTEMS: 12 point ROS reviewed with patient. Pertinent positives mentioned above. Otherwise negative. PHYSICAL EXAM: GENERAL: alert, weak, awake oriented x 3 HEENT: EOMI, Sclera non icteric, moist mucosa NECK: Supple, no JVD, trachea midline LUNGS: Clear breath sounds bilaterally. No wheezes HEART: Regular rate and rhythm. Normal S1 and S2, without murmurs ABD: Abdomen soft, nontender. Bowel sounds present EXT: Left foot cellulitis, L-2nd digit with 0.5cm ulceration, swelling, redness and tenderness to same area, no discharge or bleeding NEURO: Alert and oriented to person, follows commands Vital Signs (last 8hr) Date Time Temp Pulse Resp B/P (MAP) Pulse Ox O2 Delivery O2 Flow Rate FiO2 04/01/25 08:00 98.2 79 18 122/71 97 Room Air 04/01/25 03:16 99.0 71 18 119/75 97 Room Air LABS: Hematology Labs: Test 03/31/25 09:23 Range/Units White Blood Count 6.4 4.8-10.8 K/uL Red Blood Count 3.60 L 4.50-6.20 MIL/uL Hemoglobin 10.2 L 14.0-18.0 g/dL Hematocrit 32.4 L 42-54 % Mean Corpuscular Volume 90.0 79-99 fL Mean Corpuscular Hemoglobin 28.3 27.0-33.0 pg Mean Corpuscular Hemoglobin Concent 31.5 L 32.0-36.0 g/dL Red Cell Distribution Width 15.3 11.0-15.5 % Platelet Count 223 130-400 K/uL Mean Platelet Volume 9.2 7.5-10.5 fL Nucleated Red Blood Cells 0.0 0.0-0.19 % Chemistry Labs: Test 04/01/25 05:00 03/31/25 11:17 03/31/25 09:23 Range/Units Whole Blood Glucose 152 H 70-110 MG/DL Bedside Glucose Comment Notified Nurse Sodium Level 136 136-145 mmol/L Potassium Level 4.7 3.5-5.1 mmol/L Chloride Level 103 101-111 mmol/L Carbon Dioxide Level 29 21-32 mmol/L Blood Urea Nitrogen 23 H 7-18 mg/dL Creatinine 0.9 0.5-1.3 mg/dL Glomerular Filtration Rate Calc 87 >90 mL/min Random Glucose 242 H 70-105 mg/dL Total Calcium 8.4 L 8.5-10.1 mg/dL Magnesium Level 2.60 H 1.80-2.40 mg/dL Total Bilirubin 0.9 0.2-1.0 mg/dL Aspartate Amino Transf (AST/SGOT) 25 10-37 U/L Alanine Aminotransferase (ALT/SGPT) 16 12-78 U/L Alkaline Phosphatase 132 50-136 U/L Total Protein 6.7 6.0-8.3 g/dL Albumin 3.1 L 3.5-5.0 g/dL Coagulation Labs: Test 03/30/25 15:52 Range/Units Activated Clotting Time 359 H 100-180 SEC DIAGNOSTICS / RADIOLOGY RESULTS: [ ] PLAN Continue DAPT six months per cardio Follow cardio and podiatry recommendation Follow up on TCOM studies Consult Orthopedic surgery for evaluation Continue local wound care NEURO: Minimize central acting medications as possible. Maintain fall precautions, adequate lighting during the day PULMONARY: Supplemental 02 as needed. Maintain aspiration precautions at all times CARDIOVASCULAR: Follow hemodynamics. Vital signs per facility protocol GI & NUTRITION: Continue with nutritional support. Continue stool softeners and laxatives as needed. KIDNEYS & ELECTROLYTES: Strict monitoring of intake, output and overall fluid balance. Avoid nephrotoxic medications to the extent possible. Medications to be dosed according to renal function. Monitor electrolytes and replace as needed ENDOCRINE: Maintain blood glucose between 100-180 at all times. Hypoglycemia protocol in place Obtain hemoglobin A1c INFECTIOUS DISEASE: Trend temperature, WBC and procalcitonin level Follow cultures, deescalate antibiotics as soon as possible. Panculture if new onset fever Vancomycin and cefepime ONCOLOGY/HEMATOLOGY/COAGULATION: Monitor for s/s of bleeding Monitor hemoglobin, coagulation studies as needed SKIN: Pressure ulcer prevention per facility protocol Specialty mattress ORTHO/REHAB: Continue PT/OT Prophylaxis: Continue GI and DVT prophylaxis Code Status: Full Resuscitation Disposition: TBD Other: Total patient care time exceeds 35 minutes excluding all procedures. Case discussed with my supervising physician and the above plan was formulated. ANDRES VELASQUEZ April 01, 2025 09:56
[2025-04-01 12:00] VITALS: BP 146/75; PULSE 86; RESP 19; TEMP 98.3
[2025-04-01 16:00] VITALS: BP 130/76; PULSE 72; RESP 18; TEMP 98.3
[2025-04-01 20:00] VITALS: BP 135/74; PULSE 78; RESP 18; TEMP 98.6
[2025-04-01 22:15] VITALS: O2SAT 98
--- NOTE | 2025-04-01 23:30 | PN ---
SUBJECTIVE: The patient is a very pleasant 79-year-old diabetic male who is followed up for a dry necrotic eschar to the tip of the left second toe. He has been afebrile and his white count is within normal limits. He is concerned of only mild pain. He has been evaluated by the Cardiology service. He has severe microvascular disease. Intervention can only perform the peroneal artery at his occlusion that is non-operable to the posterior tibial and severe disease of the anterior tibial, not amenable to revascularization procedure. The patient is currently afebrile. His white count is within normal limits. The patient has blood cultures, no growth times 5 days. He is concerned with mild pain to the left foot. The patient is being followed by the [facility]. REVIEW OF SYSTEMS: CONSTITUTIONAL: He has no constitutional symptoms. Mild pain to the left foot. GASTROINTESTINAL: He has no nausea, no vomiting. No diarrhea. ENDOCRINE: Hemoglobin A1c of 9.6. PSYCHIATRIC: Denied any depression. The patient has dementia. MUSCULOSKELETAL: He has a ikmrc-qvi-bynp amputation on the right. MRI suggesting distal phalanx osteomyelitis of the first and second toes and possibly the mid portion of the fifth metatarsal on that left side. INTEGUMENTARY: He has a dry eschar to the tip of the left second toe that is stable. There is no odor. There is no pus. No abscess. No ascending cellulitis. OBJECTIVE: On examination today, I cannot palpate his pedal pulses on the left. The left foot is cold. He has eschar to the tip of the left second toe is dry and stable. He has a dlufq-lqu-mfoc amputation on the right. ASSESSMENT: Peripheral vascular disease, nonoperative bone on the left. Gangrene and osteomyelitis, left second toe, stable. He is afebrile. His white count is within normal limits. He is receiving broad-spectrum antibiotic therapy with the use of the IV vancomycin and the IV cefepime. PLAN: I discussed the condition with the patient and family members who are with him today at bedside. I have no recommendations for surgical intervention to his foot due to the severity of his non-operable peripheral vascular disease. I feel the patient has the option for either palliative measures with local wound care and IV antibiotics versus the definitive amputation, which will be at a level determined by the Orthopedic surgeon and the Cardiology service, possibly below or above the knee on that left side. We will continue to follow the patient closely while in-house. TID: [id number] RECEIPT: [id number]
[2025-04-02] VITALS (8 sets, daily range): BP systolic 119–146; BP diastolic 44–75; PULSE 64–74; RESP 16–20; TEMP 97.8–98.4; O2SAT 96–97
--- NOTE | 2025-04-02 11:52 | PN ---
SUBJECTIVE: The patient is a very pleasant 79-year-old diabetic Latin male status post revascularization procedure of peroneal artery performed by Cardiology Service. The patient is afebrile, white count 6.4, H and H 10.2 and 32.4, glucose 142. The patient has occlusion that is nonoperable, posterior tibial and severe disease of the anterior tibial, not amenable to revascularization procedure. The patient is currently afebrile. He is being followed by [facility]. I have discussed treatment options with the patient, both conservative and surgical. REVIEW OF SYSTEMS: CONSTITUTIONAL: No constitutional symptoms. Mild pain to the left foot. GASTROINTESTINAL: No dysphagia. ENDOCRINE: Diabetes. Hemoglobin A1c is 9.6. MUSCULOSKELETAL: Wyolz-qyu-ixtz amputation on the right. MRI suggesting distal phalanx osteomyelitis of the first and second toes and possibly the mid portion of the fifth metatarsal on the left side. INTEGUMENTARY: He has dry eschar to the tip of the left second toe that is stable. OBJECTIVE: I cannot palpate his pedal pulses on the left. Left foot is cool. He has eschar to the tip of the left second toe that is dry and stable. He has a below-knee amputation on the right. ASSESSMENT: Peripheral vascular disease, nonoperative on the left. Gangrene and osteomyelitis, left second toe stable. No abscess or ascending cellulitis. He is afebrile. His white count is within normal limits receiving broad-spectrum antibiotics with the use of IV vancomycin and IV cefepime. PLAN: I discussed the condition with the patient and family members who are with him at bedside. I discussed conservative care, local wound care and antibiotics. I discussed surgical intervention, which would be at minimal below-the knee, possibly an nabfm-mzv-tsza amputation on the left side. He states he will talk it over with his family and make a decision. We will continue to follow the patient closely while in-house. TID: [id number] RECEIPT: [id number]
--- NOTE | 2025-04-02 12:18 | PN ---
[facility] PROGRESS NOTE Date Patient Seen: April 02, 2025 Time of Visit: 12:18 Supervising Physician: [Dr. Wen] Primary Care Physician: Dr. MERYL GROSS Outpatient Specialists: [ ] Inpatient Consults: [Dr. Rodriguez, Dr. Meza] PROBLEM LIST: Osteomyelitis of 2nd L-toe Severe PAD with 100% stenosis in L-anterior/posterior tibial artery 2. DIABETES TYPE 2 UNCONTROLLED 3. ESSENTIAL HYPERTENSION 4. RIGHT BKA, POA 5. REMOTE HX OF CABG INTERVAL HISTORY: [PATIENT IS EVALUATED AT BEDSIDE. HE WAS ADMITTED FOR EVALUATION OF LEFT 2ND TOE ULCER. HE HAS A HISTORY OF RIGHT BKA IN 2013. HE HAD MRI OF THE LEFT FOOT PERFORMED, PENDING READING. DR. RODRIGUEZ HAS BEEN CONSULTED, PENDING EVALUATION. DR. MEZA HAS ALSO BEEN CONSULTED HAD ARTERIAL DOPPLER ORDERED. WILL FOLLOW UP WITH IMAGING STUDIES AND SPECIALIST RECOMMENDATIONS. HIS A1C IS 9.6 AND ESR IS 41, OTHERWISE LABS AND VITALS WERE UNREMARKABLE.] 03/27 patient evaluated at bedside. He has abnormal monophasic waveforms per arterial Doppler. His MRI of the foot confirms osteomyelitis. He is pending invasive angiogram to left lower extremity per cardio, likely for early next week. We will continue to follow up with recommendation from cardiology, pending surgical intervention. 03/28 patient is evaluated at bedside. BP is elevated. Most recent labs within normal limits, continues on IV antibiotics. Pending lower extremity angiogram per Cardiology early next week. We will await further recommendation postprocedure. No new concerns verbalized with the patient. 03/29 Patient has been initiated on amlodipine 10 mg daily, BP remains elevated but is improved. CBC and BNP are unremarkable, patient continues on IV antibiotics pending lower extremity angiogram and possible surgical procedure for osteomyelitis of left foot. 03/30 Patient is evaluated at bedside. He is pending a lower extremity angiogram today. We will follow up with findings and recommendation per Cardiology. Patient will still need podiatry, possible ortho evaluation placed on findings. 03/31 patient was evaluated at bedside. He is status post lower extremity angiogram with findings noted per report. He does have significant peripheral vascular disease which limits his surgical options for osteomyelitis. Podiatry is not recommending any surgical intervention from their standpoint. Cardiology will follow up with TCOM studies. We will consult ortho for evaluation and possible BKA vs AKA. 04/01 patient was evaluated at bedside. He is upset due to not having an updated status on his treatment plan. He was advised that he underwent multiple tests while admitted. He continues on IV antibiotics. He was advised of T com study performed yesterday, pending further recommendation per Cardiology. Patient was reassured that tests and studies are being performed in order to formulate the most appropriate plan for him. He has a history of right BKA and would like to avoid the same on his left lower extremity. We will follow up with further recommendation from Cardiology and Podiatry. 04/02 Patient is evaluated at bedside. No current pain to L-foot, but does complain of pain with ambulation. Cardiology has ordered TCOM studies whcih are completed pending review and recommendation. Podiatry is not planning intervention for now. Will consult ID for antibiotic stewardship. REVIEW OF SYSTEMS: 12 point ROS reviewed with patient. Pertinent positives mentioned above. Otherwise negative. PHYSICAL EXAM: GENERAL: alert, weak, awake oriented x 3 HEENT: EOMI, Sclera non icteric, moist mucosa NECK: Supple, no JVD, trachea midline LUNGS: Clear breath sounds bilaterally. No wheezes HEART: Regular rate and rhythm. Normal S1 and S2, without murmurs ABD: Abdomen soft, nontender. Bowel sounds present EXT: Left foot cellulitis, L-2nd digit with 0.5cm ulceration, swelling, redness and tenderness to same area, no discharge or bleeding NEURO: Alert and oriented to person, follows commands Vital Signs (last 8hr) Date Time Temp Pulse Resp B/P (MAP) Pulse Ox O2 Delivery O2 Flow Rate FiO2 04/02/25 08:00 98.2 74 18 146/66 93 Room Air LABS: Chemistry Labs: Test 04/02/25 11:26 Range/Units Whole Blood Glucose 398 #H 70-110 MG/DL DIAGNOSTICS / RADIOLOGY RESULTS: [ ] PLAN Consult ID for antibiotics Continue DAPT six months per cardio Follow cardio and podiatry recommendation Follow up on TCOM studies Consult Orthopedic surgery for evaluation Continue local wound care NEURO: Minimize central acting medications as possible. Maintain fall precautions, adequate lighting during the day PULMONARY: Supplemental 02 as needed. Maintain aspiration precautions at all times CARDIOVASCULAR: Follow hemodynamics. Vital signs per facility protocol GI & NUTRITION: Continue with nutritional support. Continue stool softeners and laxatives as needed. KIDNEYS & ELECTROLYTES: Strict monitoring of intake, output and overall fluid balance. Avoid nephrotoxic medications to the extent possible. Medications to be dosed according to renal function. Monitor electrolytes and replace as needed ENDOCRINE: Maintain blood glucose between 100-180 at all times. Hypoglycemia protocol in place Obtain hemoglobin A1c INFECTIOUS DISEASE: Trend temperature, WBC and procalcitonin level Follow cultures, deescalate antibiotics as soon as possible. Panculture if new onset fever Vancomycin and cefepime ONCOLOGY/HEMATOLOGY/COAGULATION: Monitor for s/s of bleeding Monitor hemoglobin, coagulation studies as needed SKIN: Pressure ulcer prevention per facility protocol Specialty mattress ORTHO/REHAB: Continue PT/OT Prophylaxis: Continue GI and DVT prophylaxis Code Status: Full Resuscitation Disposition: TBD Other: Total patient care time exceeds 35 minutes excluding all procedures. Case discussed with my supervising physician and the above plan was formulated. ANDRES VELASQUEZ April 02, 2025 12:18
[2025-04-02] MEDS: VANCOMYCIN 750MG VIAL IVPB SCH (22:30)
[2025-04-03] VITALS: BP 130/75; PULSE 71; RESP 18; TEMP 97
[2025-04-03 04:00] VITALS: BP_SYST 144; PULSE 66; RESP 17; TEMP 97.9
[2025-04-03 06:16] LABS: HEMATOCRIT 27.6 % (42-54); MEAN CORPUSCULAR HGB CONC 33.3 g/dL (32.0-36.0); MEAN CORPUSCULAR VOLUME 87.1 fL (79-99); RED BLOOD CELL COUNT(AUTO) 3.17 MIL/uL (4.50-6.20); RED CELL DISTRIBUTION WIDTH 15.4 % (11.0-15.5); WHITE BLOOD COUNT (AUTO) 6.2 K/uL (4.8-10.8)
--- NOTE | 2025-04-03 06:21 | PN ---
SUBJECTIVE: The patient is a very pleasant 79-year-old diabetic, Latin-[place] male who is followed up for a peripheral vascular disease affecting the left lower extremity. He has a yzmkl-jhp-onxe amputation on the right. He states he has no significant pain to the second toe ulcer eschar to his left. He has a xkyip-fsr-xhfy amputation on the right. REVIEW OF SYSTEMS: CONSTITUTIONAL: No chills, no fevers, no night sweats. No nausea, vomiting, or diarrhea. HEENT: No problems with eyes, ears, nose, or throat. EXTREMITIES: He has a zbfpo-ehz-tllo amputation on the right. He states he has mild pain to the left foot. CARDIOVASCULAR: He has peripheral vascular disease, nonoperable, to the posterior tibial artery per the Cardiology Service; severe disease of the anterior tibial artery. He had a revascularization procedure of the peroneal artery. INTEGUMENT: He has a dry eschar to the tip of the left second toe that is stable, it was approximately 15 x 10 mm. PHYSICAL EXAMINATION: I cannot palpate his pedal pulses on the left. Left foot is cool. He has eschar to the tip of the second toe on the left that is dry and stable. He has a hngzk-fhp-kedv amputation on the right. ASSESSMENT: Peripheral vascular disease nonoperative on the left, lower extremity amputation on the right, gangrene and osteomyelitis of the left second toe that is stable, afebrile. White count within normal limits. The patient is receiving vancomycin and cefepime. PLAN: I discussed treatment options with the patient and family members. I discussed conservative care with continuation of antibiotic therapy versus definitive procedures, which would be a llnni-sze-dklv amputation on the left. The patient is refusing pozgy-roi-wxoy amputation on the left. We will continue to follow the patient closely while in-house. TID: [id number] RECEIPT: [id number]
[2025-04-03 06:30] LABS: CREATININE 1.2 mg/dL (0.5-1.3)
[2025-04-03 08:00] VITALS: BP 156/83; PULSE 73; RESP 20; TEMP 98.1; O2SAT 96
[2025-04-03 12:00] VITALS: BP 165/97; PULSE 70; RESP 18; TEMP 98.1
--- NOTE | 2025-04-03 14:10 | PN ---
[facility] PROGRESS NOTE Date Patient Seen: April 03, 2025 Time of Visit: 14:10 Supervising Physician: Dr. Ashley Wen Primary Care Physician: Dr. MERYL GROSS Outpatient Specialists: [ ] Inpatient Consults: [Dr. Rodriguez, Dr. Beatty] PROBLEM LIST: Osteomyelitis of 2nd L-toe Severe PAD with 100% stenosis in L-anterior/posterior tibial artery 2. DIABETES TYPE 2 UNCONTROLLED 3. ESSENTIAL HYPERTENSION 4. RIGHT BKA, POA 5. REMOTE HX OF CABG INTERVAL HISTORY: Patient evaluated at bedside, currently tolerating his lunch, no further surgical interventions are planned at this time by Podiatry, pending final TCOM report at this time. Patient's white count today is 6.2, he continues on antibiotics for osteomyelitis. Currently pending further recommendations from Infectious Disease regarding indication for outpatient IV antibiotics. He denies any nausea or vomiting, no constipation reported. Patient states at rest he feels no pain, however ambulation does increase his pain however he endorses that it is tolerable. REVIEW OF SYSTEMS: 12 point ROS reviewed with patient. Pertinent positives mentioned above. Otherwise negative. PHYSICAL EXAM: GENERAL: alert, weak, awake oriented x 3 HEENT: EOMI, Sclera non icteric, moist mucosa NECK: Supple, no JVD, trachea midline LUNGS: Clear breath sounds bilaterally. No wheezes HEART: Regular rate and rhythm. Normal S1 and S2, without murmurs ABD: Abdomen soft, nontender. Bowel sounds present EXT: Left foot cellulitis, L-2nd digit with 0.5cm ulceration, swelling, redness and tenderness to same area, no discharge or bleeding NEURO: Alert and oriented to person, follows commands Vital Signs (last 8hr) Date Time Temp Pulse Resp B/P (MAP) Pulse Ox O2 Delivery O2 Flow Rate FiO2 04/03/25 12:00 98.1 70 18 165/97 98 Room Air 04/03/25 08:00 98.1 73 20 156/83 96 Room Air LABS: Hematology Labs: Test 04/03/25 05:57 Range/Units White Blood Count 6.2 4.8-10.8 K/uL Red Blood Count 3.17 L 4.50-6.20 MIL/uL Hemoglobin 9.2 L 14.0-18.0 g/dL Hematocrit 27.6 L 42-54 % Mean Corpuscular Volume 87.1 79-99 fL Mean Corpuscular Hemoglobin 29.0 27.0-33.0 pg Mean Corpuscular Hemoglobin Concent 33.3 32.0-36.0 g/dL Red Cell Distribution Width 15.4 11.0-15.5 % Platelet Count 236 130-400 K/uL Mean Platelet Volume 9.7 7.5-10.5 fL Nucleated Red Blood Cells 0.0 0.0-0.19 % Chemistry Labs: Test 04/03/25 11:08 04/03/25 05:57 Range/Units Whole Blood Glucose 222 H 70-110 MG/DL Sodium Level 134 L 136-145 mmol/L Potassium Level 4.0 3.5-5.1 mmol/L Chloride Level 99 L 101-111 mmol/L Carbon Dioxide Level 27 21-32 mmol/L Blood Urea Nitrogen 13 7-18 mg/dL Creatinine 1.2 0.5-1.3 mg/dL Glomerular Filtration Rate Calc 62 >90 mL/min Random Glucose 308 H 70-105 mg/dL Total Calcium 8.4 L 8.5-10.1 mg/dL DIAGNOSTICS / RADIOLOGY RESULTS: [ ] PLAN Consult ID for antibiotics Continue DAPT six months per cardio Follow cardio and podiatry recommendation Follow up on TCOM studies Consult Orthopedic surgery for evaluation Continue local wound care NEURO: Minimize central acting medications as possible. Maintain fall precautions, adequate lighting during the day PULMONARY: Supplemental 02 as needed. Maintain aspiration precautions at all times CARDIOVASCULAR: Follow hemodynamics. Vital signs per facility protocol GI & NUTRITION: Continue with nutritional support. Continue stool softeners and laxatives as needed. KIDNEYS & ELECTROLYTES: Strict monitoring of intake, output and overall fluid balance. Avoid nephrotoxic medications to the extent possible. Medications to be dosed according to renal function. Monitor electrolytes and replace as needed ENDOCRINE: Maintain blood glucose between 100-180 at all times. Hypoglycemia protocol in place Obtain hemoglobin A1c INFECTIOUS DISEASE: Trend temperature, WBC and procalcitonin level Follow cultures, deescalate antibiotics as soon as possible. Panculture if new onset fever Vancomycin and cefepime ONCOLOGY/HEMATOLOGY/COAGULATION: Monitor for s/s of bleeding Monitor hemoglobin, coagulation studies as needed SKIN: Pressure ulcer prevention per facility protocol Specialty mattress ORTHO/REHAB: Continue PT/OT Prophylaxis: Continue GI and DVT prophylaxis Code Status: Full Resuscitation Disposition: TBD Other: Total patient care time exceeds 35 minutes excluding all procedures. Case disc ussed with my supervising physician and the above plan was formulated. NICHOLE LOPEZ April 03, 2025 14:10
[2025-04-03 15:13] LABS: INR 1.05 (0.85-1.15); PROTHROMBIN TIME 11.1 SEC (9.6-11.6)
[2025-04-03 16:00] VITALS: BP 109/57; PULSE 69; RESP 18; TEMP 98.5
--- NOTE | 2025-04-03 17:00 | NUR ---
EDWARD PLAN VISITED WITH PATIENT. PATIENT SIGNED FOR [facility]. PACKET MADE AND SENT. Addendum: 04/04/25 at 1702 by IVETTE TRAN RN CM Amended: Links added.
--- NOTE | 2025-04-03 17:03 | HMCIMG ---
Exam Type: CHEST 1VW Clinical Information: POST PICC LINE Comparison: None Findings: RightPICC line is noted with tip within the distal superior vena cava and there are no other interval changes. IMPRESSION: Right PICC line as noted.
[2025-04-03] MEDS: DEXTROSE 50%-WATER 50 ML DISP.SYRIN IV PRN (18:10)
[2025-04-03 20:00] VITALS: BP 122/60; PULSE 78; RESP 18; TEMP 97.8; O2SAT 95
--- NOTE | 2025-04-03 20:04 | CONS ---
INFECTIOUS DISEASE CONSULTATION DATE OF SERVICE: 04/03/2025 REQUESTING PHYSICIAN: EWA Gilliland REASON FOR CONSULTATION: Left second toe osteomyelitis. HISTORY OF PRESENT ILLNESS: A 79-year-old male with a history of diabetes mellitus and hypertension, who presented to the hospital with left second toe pain, swelling, and redness. The patient was found with osteomyelitis and was admitted. The patient also has peripheral vascular disease and underwent angiogram with intervention of the left lower extremity. The patient was seen by tableau report developer, who recommended below knee amputation, which the patient is refusing. The patient has been started on vancomycin and cefepime. No fever or chills. Denies trauma or fall. No headache, no dizziness. PAST MEDICAL HISTORY: * Peripheral vascular disease. * Diabetes mellitus. * Hypertension. * Coronary artery disease. * Dyslipidemia. * Right lower extremity osteomyelitis. PAST SURGICAL HISTORY: * Angiogram and intervention. * Right below knee amputation. * PCI. ALLERGIES: No known drug allergies. CURRENT MEDICATIONS: Reviewed. SOCIAL HISTORY: No alcohol, tobacco, or illicit drug use. Lives alone. FAMILY HISTORY: Positive for diabetes mellitus. REVIEW OF SYSTEMS: CONSTITUTIONAL: No fever or chills. No weight loss or night sweats. EYES: No eye pain. No photophobia or diplopia. HENT: No sore throat. No rhinorrhea or earache. NECK: No neck pain or neck swelling. RESPIRATORY: No cough. No hemoptysis or pleuritic pain. CARDIOVASCULAR: No chest pain. No palpitation or orthopnea. GASTROINTESTINAL: Denies nausea, vomiting or abdominal pain. GENITOURINARY: No dysuria, urgency or urinary frequency. CENTRAL NERVOUS SYSTEM: Denies headache, dyspnea, or slurred speech. PSYCHIATRY: No depression. No suicidal ideation. MUSCULOSKELETAL: No joint pain or joint swelling PHYSICAL EXAMINATION: GENERAL: Elderly male, awake, not in distress. VITAL SIGNS: Temperature 98.1, pulse 70, respiratory rate 18, BP 165/97. EYES: No icterus. Pupils equal and reactive. HENT: No oral thrush seen. Moist oral mucosa. NECK: Supple. No JVD or thyromegaly. LUNGS: Good air entry. No rales. No rhonchi. CARDIOVASCULAR: S1 and S2, regular. No murmur heard. ABDOMEN: Full, soft, nontender. Bowel sound is present. CENTRAL NERVOUS SYSTEM: Awake, alert, oriented x 3. No focal deficits. SKIN: No rashes. No itchiness. LYMPHATIC: No peripheral lymphadenopathy. BACK: No deformity. No pressure ulcer. EXTREMITIES: Dry ulcer involving distal phalanx of left second toe, which is tender. No drainage is seen. LABORATORY DATA: Sodium 134, potassium 4.0, BUN 13, creatinine 1.2. WBC 6.2, hemoglobin 9.2, platelets 236. Blood culture, no growth for 5 days. RADIOLOGY: MRI shows left foot osteomyelitis. Arterial Doppler showed abnormal monophasic flow. ASSESSMENT: A 79-year-old male with multiple problems which include: * Left foot osteomyelitis. * Diabetic foot ulcer. * Peripheral vascular disease. * Anemia. * Hypertension. PLAN: * Continue vancomycin. * Continue cefepime. * The patient will need to be evaluated for possible HBO therapy. * Continue antihypertensive. * Continue antidiabetic. * Continue nutritional support. * Continue antiplatelet. * Monitor electrolytes and correct as needed. * The patient will need at least 6 weeks of IV antibiotics. Thank you for allowing me to participate in the care of this patient. TID: [id number] RECEIPT: [id number]
[2025-04-04] VITALS: BP 118/60; PULSE 68; RESP 19; TEMP 98
[2025-04-04 04:00] VITALS: BP 135/72; PULSE 71; RESP 18; TEMP 97.7
[2025-04-04 05:57] LABS: MEAN CORPUSCULAR HGB CONC 32.7 g/dL (32.0-36.0); MEAN CORPUSCULAR VOLUME 88.8 fL (79-99); RED BLOOD CELL COUNT(AUTO) 3.38 MIL/uL (4.50-6.20); RED CELL DISTRIBUTION WIDTH 15.7 % (11.0-15.5); WHITE BLOOD COUNT (AUTO) 6.7 K/uL (4.8-10.8)
--- NOTE | 2025-04-04 06:00 | EKG ---
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 : 1945 Requested By: BROWN MEYER Order Number: [id number] Reading MD: Lucho Perkins Measurements Intervals [place] Rate: 72 P: 103 AL: 190 QRS: -26 QRSD: 92 T: 112 QT: 406 QTc: 444 Interpretive Statements Sinus rhythm with premature atrial complexes Septal infarct , age undetermined Compared to ECG 12/09/2024 19:40:54 Atrial premature complex(es) now present Left-axis deviation no longer present T-wave abnormality no longer present Myocardial infarct finding still present Electronically Signed On 04-05-2025 13:13:09 CDT by Lucho Perkins Please click the below link to view image of tracing.
[2025-04-04 06:07] LABS: CREATININE 1.2 mg/dL (0.5-1.3); POTASSIUM 4.6 mmol/L (3.5-5.1)
[2025-04-04 07:40] VITALS: BP 148/76; PULSE 70; RESP 16; TEMP 98.4
[2025-04-04 08:00] VITALS: O2SAT 100
--- NOTE | 2025-04-04 11:36 | NUR ---
CAPRICE VERDUZCO Addendum: 04/04/25 at 1140 by MARKUS MCNEAL RN RN Amended: Links added.
[2025-04-04 11:44] VITALS: BP 124/77; PULSE 71; RESP 20; TEMP 98.4
--- NOTE | 2025-04-04 12:18 | PN ---
SUBJECTIVE: The patient is a very pleasant 79-year-old diabetic [place] male, seen date of service 04/04/2025, being followed for problems that includes osteomyelitis of his left second toe, severe peripheral vascular disease, nonoperative per the Cardiology Service; type 2 diabetes, uncontrolled; essential hypertension, right pmbjj-gsr-taod amputation, history of remote CABG. The patient continues to be afebrile. He continues to be on antibiotic therapy, currently the vancomycin and the cefepime. He is concerned of pain to the second toe on the left, worse with ambulation. Transcutaneous oxygen measurements have been ordered to assess his healing potential and his evaluation for the possibility of outpatient hyperbaric oxygen therapy. I have discussed treatment options with the patient and family members. I have discussed options with the patient. His options are conservative care, which would include possibility of hyperbaric oxygen therapy and IV antibiotics versus a definitive surgical procedure, which would be at minimal vlpos-haz-mmcd amputation. I do not feel the patient is a candidate for any foot surgery due to the severity of his nonoperable peripheral vascular disease affecting the posterior tibial and anterior tibial artery on that right side. At this point, the patient and family members do not want to have lower extremity amputation and are favoring conservative care of IV antibiotics and evaluation for hyperbaric oxygen therapy. REVIEW OF SYSTEMS: CONSTITUTIONAL: No chills, no fevers, no night sweats. No nausea, vomiting or diarrhea. Pain to the left second toe. HEENT: No problems with eyes, ears, nose, or throat. EXTREMITIES: He has a fbozc-wyb-ckwd amputation on the right. He states he has mild pain to the left foot second toe area. CARDIOVASCULAR: He has peripheral vascular disease, nonoperable involving the posterior tibial and the anterior tibial artery. He has a revascularization procedure of the peroneal artery on the left side. INTEGUMENT: He has eschar drying, stable to the tip of the left second toe. It is 15 x 10 x 1 mm. No abscess. No ascending cellulitis. Dusky discoloration to the left second toe. OBJECTIVE: On exam, I cannot palpate his pedal pulses on the left. Left foot is cool. He has eschar to the tip of the left second toe that is dry and stable. He has dusky discoloration to the left second toe. He has a gmuew-ubf-rznu amputation on the right. ASSESSMENT: Peripheral vascular disease, nonoperable; left lower extremity amputation below the knee on the right, gangrene and osteomyelitis of the left second toe is stable. He is afebrile. His white count is within normal limits. The patient states he has pain that is tolerable. It is worsened when he walks. He is receiving vancomycin and cefepime. PLAN: I discussed treatment options again with the patient and family members to discuss conservative care, which would be continuation of antibiotic therapy and evaluation for hyperbaric oxygen therapy versus a afozx-cet-xriq amputation on the left. The patient at this point is refusing amputation on the left at a ocgzy-szw-xdxs amputation level. I informed him there are no options for foot surgery due to the severity of his peripheral vascular disease with an occluded anterior tibial and posterior tibial artery. We will continue to follow the patient closely while in-house. TID: [id number] RECEIPT: [id number]
--- NOTE | 2025-04-04 13:31 | PN ---
[facility] PROGRESS NOTE Date Patient Seen: April 04, 2025 Time of Visit: 13:26 Supervising Physician: Dr. Jaret Maza Primary Care Physician: Dr. MERYL GROSS Outpatient Specialists: [ ] Inpatient Consults: [Dr. Rodriguez, Dr. Beatty] PROBLEM LIST: Osteomyelitis of 2nd L-toe Severe PAD with 100% stenosis in L-anterior/posterior tibial artery 2. DIABETES TYPE 2 UNCONTROLLED 3. ESSENTIAL HYPERTENSION 4. RIGHT BKA, POA 5. REMOTE HX OF CABG INTERVAL HISTORY: Patient evaluated at bedside today, resting comfortably, denies any acute discomfort at this time. Patient states he has been able to walk with physical therapy, his right prosthesis at bedside as well as a walker. At this time patient continues to refuse left-sided below-knee amputation, favoring long-term antibiotic therapy and the possibility of hyperbaric oxygen therapy. Case management and Infectious Disease currently working on this disposition. Patient is tolerating his diet, denies any nausea or vomiting, no complaints regarding the patient's bowel regimen. He continues on vancomycin and cefepime. Pending arrangement for outpatient antibiotics and HBO therapy. REVIEW OF SYSTEMS: 12 point ROS reviewed with patient. Pertinent positives mentioned above. Otherwise negative. PHYSICAL EXAM: GENERAL: alert, weak, awake oriented x 3 HEENT: EOMI, Sclera non icteric, moist mucosa NECK: Supple, no JVD, trachea midline LUNGS: Clear breath sounds bilaterally. No wheezes HEART: Regular rate and rhythm. Normal S1 and S2, without murmurs ABD: Abdomen soft, nontender. Bowel sounds present EXT: Left foot cellulitis, L-2nd digit with 0.5cm ulceration, swelling, redness and tenderness to same area, no discharge or bleeding NEURO: Alert and oriented to person, follows commands Vital Signs (last 8hr) Date Time Temp Pulse Resp B/P (MAP) Pulse Ox O2 Delivery O2 Flow Rate FiO2 04/04/25 11:44 98.4 71 20 124/77 100 Room Air 04/04/25 08:00 100 Room Air* 0 21 04/04/25 07:40 98.4 70 16 148/76 100 Room Air LABS: Hematology Labs: Test 04/04/25 05:49 Range/Units White Blood Count 6.7 4.8-10.8 K/uL Red Blood Count 3.38 L 4.50-6.20 MIL/uL Hemoglobin 9.8 L 14.0-18.0 g/dL Hematocrit 30.0 L 42-54 % Mean Corpuscular Volume 88.8 79-99 fL Mean Corpuscular Hemoglobin 29.0 27.0-33.0 pg Mean Corpuscular Hemoglobin Concent 32.7 32.0-36.0 g/dL Red Cell Distribution Width 15.7 H 11.0-15.5 % Platelet Count 263 130-400 K/uL Mean Platelet Volume 9.2 7.5-10.5 fL Nucleated Red Blood Cells 0.0 0.0-0.19 % Chemistry Labs: Test 04/04/25 10:52 04/04/25 05:49 Range/Units Whole Blood Glucose 254 H 70-110 MG/DL Bedside Glucose Comment Notified Nurse Sodium Level 135 L 136-145 mmol/L Potassium Level 4.6 3.5-5.1 mmol/L Chloride Level 100 L 101-111 mmol/L Carbon Dioxide Level 26 21-32 mmol/L Blood Urea Nitrogen 12 7-18 mg/dL Creatinine 1.2 0.5-1.3 mg/dL Glomerular Filtration Rate Calc 62 >90 mL/min Random Glucose 216 #H 70-105 mg/dL Total Calcium 8.8 8.5-10.1 mg/dL Coagulation Labs: Test 04/03/25 14:40 Range/Units Prothrombin Time 11.1 9.6-11.6 SEC Prothromb Time International Ratio 1.05 0.85-1.15 DIAGNOSTICS / RADIOLOGY RESULTS: [ ] PLAN Consult ID for antibiotics Continue DAPT six months per cardio Follow cardio and podiatry recommendation Follow up on TCOM studies Consult Orthopedic surgery for evaluation Continue local wound care NEURO: Minimize central acting medications as possible. Maintain fall precautions, adequate lighting during the day PULMONARY: Supplemental 02 as needed. Maintain aspiration precautions at all times CARDIOVASCULAR: Follow hemodynamics. Vital signs per facility protocol GI & NUTRITION: Continue with nutritional support. Continue stool softeners and laxatives as needed. KIDNEYS & ELECTROLYTES: Strict monitoring of intake, output and overall fluid balance. Avoid nephrotoxic medications to the extent possible. Medications to be dosed according to renal function. Monitor electrolytes and replace as needed ENDOCRINE: Maintain blood glucose between 100-180 at all times. Hypoglycemia protocol in place Obtain hemoglobin A1c INFECTIOUS DISEASE: Trend temperature, WBC and procalcitonin level Follow cultures, deescalate antibiotics as soon as possible. Panculture if new onset fever Vancomycin and cefepime ONCOLOGY/HEMATOLOGY/COAGULATION: Monitor for s/s of bleeding Monitor hemoglobin, coagulation studies as needed SKIN: Pressure ulcer prevention per facility protocol Specialty mattress ORTHO/REHAB: Continue PT/OT Prophylaxis: Continue GI and DVT prophylaxis Code Status: Full Resuscitation Disposition: TBD Other: Total patient care time exceeds 35 minutes excluding all procedures. Case discussed with my supervising physician and the above plan was formulated. NICHOLE LOPEZ April 04, 2025 13:31
[2025-04-04 15:55] VITALS: BP 129/59; PULSE 71; RESP 18; TEMP 98.3
[2025-04-04] MEDS ORDERED: LEVO-70 PO (17:00)
--- NOTE | 2025-04-04 17:47 | NUR ---
DC PLAN SPOKE TO NURSE SAID DR. REA CAME IN [facility]. SAID PATIENT CAN GO HOME WITH PO ABX AND TO DC PICC LINE. Addendum: 04/04/25 at 1749 by IVETTE TRAN RN CM Amended: Links added.
--- NOTE | 2025-04-04 18:13 | NUR ---
CALLED BACK TO TATIANA VARELA ON DISCHARGE CLARIFICATION FOR PLAVIX , INFORMED HIM PATIENT NEEDS SCRIPT FOR PLAVIX DID NOT HAVE IT HM BEFORE AND WAS TAKING IT HERE IN HOSPITAL . PER TATIANA VARELA OK TO CONTINUE TO DISCHARGE HOME AND HE WILL GO BACK TO COMPUTER TO ADD PLAVIX AND SEND OUT THE SCRIPT ELECTRONICALLY TO HIS PHARMACY . PICC LINE REMOVED , TIP INTACT AT [address]. PATIENT TOLERATED WELL , NO SIGNS OF BLEEDING . DISCHARGE INSTRUCTIONS GIVEN TO PATIENT , ALSO CALLED GERSON DAUGHTER OF PATIENT AND GAVE HER INSTRUCTIONS ON NEW PLAN FOR LEVAQUIN TREATMENT PILL FORM INSTEAD OF IV PER PRIMARY TEAM AND ALSO PRIMARY TEAM WILL BE SENDING PLAVIX SCRIPT ELECTRONICALLY TO HIS PHARMACY . ALSO INFORMED HER ON IMPORTANCE TO FOLLOW UP WITH DR MEYER AND CALL SUNDAY TO SET UP FOR HBO THERAPY . PER DAUGHTER VERBALIZED UNDERSTANDING
--- NOTE | 2025-04-04 21:01 | DS ---
[facility] DISCHARGE SUMMARY Date Patient Seen: April 04, 2025 Time of Visit: 20:56 Supervising Physician: Dr. Jaret Maza Primary Care Physician: Dr. MERYL [facility] Outpatient Specialists: [ ] Inpatient Consults: [Dr. Rodriguez, Dr. Beatty] HOSPITAL COURSE: HPI (per admitting provider) Patient is a 79-year-old male with past medical history significant for diabetes type 2, hypertension, peripheral arterial disease, depression, coronary artery disease, and a surgical history of cardiac stent placement, right BKA, referred to the emergency department from [facility] for evaluation of left foot redness, swelling, and pain. Patient reports that for the past seven days, he has been noticing a progressive swelling to the left foot, associated with redness and pain. Patient was seen today at [facility] and was referred to this facility for direct admission. Patient denies fever, chills, nausea, vomiting, diarrhea, cough, dizziness, or any other symptoms. The basic lab shows ESR of 41, glucose of 264. Landscape Laborer has been consulted. Patient will be admitted to medical-surgical floor for further evaluation and treatment. The patient was treated for the following problems: Patient was evaluated and treated for osteomyelitis of the 2nd toe on the left foot. Patient currently with right-sided BKA. Throughout his admission patient has stated that he does not wish to proceed with left BKA, however due to the patient's 100% stenosis of the left anterior and posterior tibial artery debridement of the foot or amputation at a lower level was deemed reliable. Patient is continued on IV antibiotics at this time however patient at this time has been cleared for discharge on p.o. Levaquin as well as Plavix. Advised to follow up with PCP in the next 1-2 weeks. Patient was advised of the dangers of not accepting the BKA on the left side, states that he understands. ACTIVE PROBLEM LIST FOR THE HOSPITALIZATION: Osteomyelitis of 2nd L-toe Severe PAD with 100% stenosis in L-anterior/posterior tibial artery CHRONIC PROBLEMS: continue previous management per PCP unless otherwise indicated 2. DIABETES TYPE 2 UNCONTROLLED 3. ESSENTIAL HYPERTENSION 4. RIGHT BKA, POA 5. REMOTE HX OF CABG SENIOR COST ACCOUNTANT FINDINGS/RECOMMENDATIONS: [ ] PROCEDURES: as mentioned above DISCHARGE MEDICATIONS: Pt hemodynamically stable and afebrile at time of discharge. PCP notified of patients admission, hospital course and discharge. PHYSICAL EXAM: GENERAL: alert, weak, awake oriented x 3 HEENT: EOMI, Sclera non icteric, moist mucosa NECK: Supple, no JVD, trachea midline LUNGS: Clear breath sounds bilaterally. No wheezes HEART: Regular rate and rhythm. Normal S1 and S2, without murmurs ABD: Abdomen soft, nontender. Bowel sounds present EXT: Left foot cellulitis, L-2nd digit with 0.5cm ulceration, swelling, redness and tenderness to same area, no discharge or bleeding NEURO: Alert and oriented to person, follows commands FOLLOW-UP: Follow-up with PCP in 2-3 days RECOMMENDATIONS: See Discharge Instructions This case was seen and discussed with my supervising physician. More than 30 minutes spent on discharge process, including evaluation of the patient, discussion with nursing staff, medication reconciliation and follow-up appointments NICHOLE LOPEZ April 04, 2025 21:01
[2025-04-04] MEDS ORDERED: CLOP-31 PO (21:02)
--- NOTE | 2025-04-06 02:36 | PN ---
INFECTIOUS DISEASE FOLLOWUP NOTE DATE OF SERVICE: 04/04/2025 SUBJECTIVE: The patient is seen and examined on bedside today. The patient has no fever, no chills. No nausea or vomiting. No abdominal pain. No bleeding tendency. No palpitations or orthopnea. Denies depression. No suicidal ideation. No rashes . No dysuria or hematuria. PHYSICAL EXAMINATION: VITAL SIGNS: Temperature 98.3. EYES: No icterus. Pupils are equal and reactive. HENT: No oral thrush seen. Moist oral mucosa. NECK: Supple. No JVD or thyromegaly. LUNGS: Good air entry. No rales, no rhonchi. CARDIOVASCULAR: S1, S2 regular. No murmur heard. ABDOMEN: Full, soft, nontender. Bowel sound is present. EXTREMITIES: Gangrene involving the left second toe . ASSESSMENT: A 79-year-old male admitted with left second toe . Current problems include: * Left second toe osteomyelitis. * Diabetic foot ulcer. * Peripheral vascular disease. * Hypertension. * Obesity. PLAN: * Continue wound care. * Continue pain management. * Continue cefepime. * Continue vancomycin. * Continue GI prophylaxis. * Continue antidiabetic. * Continue antiplatelet. * Monitor electrolytes and correct as needed. TID: [id number] RECEIPT: [id number]
--- NOTE | 2025-04-06 08:53 | NUR ---
DC PLAN DR. PALMER [facility] REFERRAL ON DC. LET KAJAL CHERRY KNOW OF CANCELLATION. Addendum: 04/06/25 at 0859 by IVETTE TRAN RN CM Amended: Links added.
--- NOTE | 2025-04-07 14:55 | NUR ---
Transitional Phone Call Attempted to call twice, left message and no return call.
== END 2025-04-04 18:45 | disposition home or self-care (01) | DRG 271 ==
LOC: EDH 14:26 → EDHIP 14:27 → 4DH 21:37
PROVIDERS: ADMIT Internal Medicine Critical Care Medicine; ATTEND Internal Medicine Critical Care Medicine
PROC: B41D1ZZ Fluoroscopy of Aorta and Bilateral Lower Extremity Arteries using Low Osmolar Contrast (ICD-10-PCS; principal; 2025-03-30)
PROC: 04CQ3ZZ Extirpation of Matter from Left Anterior Tibial Artery, Percutaneous Approach (ICD-10-PCS; 2025-03-30)
PROC: 047U3ZZ Dilation of Left Peroneal Artery, Percutaneous Approach (ICD-10-PCS; 2025-03-30)
PROC: B41G1ZZ Fluoroscopy of Left Lower Extremity Arteries using Low Osmolar Contrast (ICD-10-PCS; 2025-03-30)
PROC: 04FQ3ZZ Fragmentation of Left Anterior Tibial Artery, Percutaneous Approach (ICD-10-PCS; 2025-03-30)
PROC: 047Q3ZZ Dilation of Left Anterior Tibial Artery, Percutaneous Approach (ICD-10-PCS; 2025-03-30)
PROC: 05HY33Z Insertion of Infusion Device into Upper Vein, Percutaneous Approach (ICD-10-PCS; 2025-04-03)
PROC: B54MZZA Ultrasonography of Right Upper Extremity Veins, Guidance (ICD-10-PCS; 2025-04-03)
PROC: 05HY33Z Insertion of Infusion Device into Upper Vein, Percutaneous Approach (ICD-10-PCS; 2025-04-04)
DX: E11.52 Type 2 diabetes mellitus with diabetic peripheral angiopathy with gangrene (principal); L03.116 Cellulitis of left lower limb; M86.9 Osteomyelitis, unspecified; E11.621 Type 2 diabetes mellitus with foot ulcer; E11.69 Type 2 diabetes mellitus with other specified complication; E11.65 Type 2 diabetes mellitus with hyperglycemia; I10 Essential (primary) hypertension; I25.10 Atherosclerotic heart disease of native coronary artery without angina pectoris; I27.20 Pulmonary hypertension, unspecified; F32.A Depression, unspecified; D50.9 Iron deficiency anemia, unspecified; L97.529 Non-pressure chronic ulcer of other part of left foot with unspecified severity; I08.1 Rheumatic disorders of both mitral and tricuspid valves; E78.5 Hyperlipidemia, unspecified; E66.9 Obesity, unspecified; Z89.511 Acquired absence of right leg below knee; Z68.23 Body mass index [BMI] 23.0-23.9, adult; Z79.2 Long term (current) use of antibiotics; Z79.82 Long term (current) use of aspirin; Z79.899 Other long term (current) drug therapy; Z87.891 Personal history of nicotine dependence; Z91.199 Patient's noncompliance with other medical treatment and regimen due to unspecified reason; Z95.1 Presence of aortocoronary bypass graft; Z95.3 Presence of xenogenic heart valve; Z95.5 Presence of coronary angioplasty implant and graft; Z83.3 Family history of diabetes mellitus
CPT/HCPCS: 36415; 36569; 37232; 71045; 73630; 73718; 75716; 80048; 80053; 80061; 80202; 82947; 82948; 83036; 83605; 83735; 85025; 85027; 85347; 85610; 85651; 85730; 87040; 93005; 93923; 93926; 99156; 99157; 99285; C1724; C1760; C1769; C1893; C1894; C9774; G0378; J0692; J1644; J1815; J2250; J3010; J3370; J3490; J7070; Q9967; C1725; C1887

== ENCOUNTER 2025-04-18 10:57 | Emergency (ER) | payer OTHER, MEDICARE ==
[~2025-04-18] VITALS: Ht 160 cm; Wt 59.4 kg
[~2025-04-18 10:57] MED LIST changes: +CLOP-31 PO; +FURO20TA4 PO; +LEVO-70 PO
--- NOTE | 2025-04-18 11:22 | NUR ---
PT PLACED IN ED BED 13. MEAL TRAY ORDERED FROM DIETARY. REGULAR DIET
--- NOTE | 2025-04-18 11:30 | NUR ---
PT CURRENTLY EATING HIS MEAL TRAY PROVIDED
[2025-04-18 11:38] LABS: BASOPHILS # (AUTO) 0.03 K/uL (0.00-0.20); BASOPHILS % (AUTO) 0.4 % (0.0-5.0); EOSINOPHILS # (AUTO) 0.02 K/uL (0.00-0.70); EOSINOPHILS % (AUTO) 0.2 % (0.0-8.0); HEMATOCRIT 30.1 % (42-54); IMMATURE GRANULOCYTE ABSOLUTE 0.02 K/uL (0-1); LYMPHOCYTES # (AUTO) 0.7 K/uL (1.0-4.8); LYMPHOCYTES % (AUTO) 8.2 % (21.0-51.0); MEAN CORPUSCULAR HEMOGLOBIN 28.3 pg (27.0-33.0); MEAN CORPUSCULAR HGB CONC 32.2 g/dL (32.0-36.0); MEAN CORPUSCULAR VOLUME 87.8 fL (79-99); MONOCYTES # (AUTO) 0.6 K/uL (0.1-1.0); MONOCYTES % (AUTO) 7.4 % (3.0-13.0); NEUTROPHILS # (AUTO) 6.9 K/uL (1.8-7.7); NEUTROPHILS % (AUTO) 83.6 % (40.0-77.0); PLATELET COUNT (AUTO) 344 K/uL (130-400); RED BLOOD CELL COUNT(AUTO) 3.43 MIL/uL (4.50-6.20); RED CELL DISTRIBUTION WIDTH 15.2 % (11.0-15.5); WHITE BLOOD COUNT (AUTO) 8.3 K/uL (4.8-10.8)
--- NOTE | 2025-04-18 11:40 | NUR ---
patient brought by EMS for "low blood sugar", blood sugar is stable 85mg/dl, patient os AAOx3, not sure why is was sent here by his daughter, he has no complaints at this time.
[2025-04-18 11:45] LABS: POTASSIUM 4.1 mmol/L (3.5-5.1)
--- NOTE | 2025-04-18 12:57 | ERN ---
General Chief Complaint: Hypoglycemia Stated Complaint: HYPOGLYCEMIC AT HOME Time Seen by MD: 11:02 History of Present Illness Initial Comments 9-year-old male coming with EMS for an episode of hypoglycemia. Upon arrival patient is alert and oriented times four and does not have any concerns. As per for immediate patient was who slurred speech and had a blood sugar of 45 after risks they gave D10 infusion symptoms resolved. Allergies: Coded Allergies: No Known Drug Allergies (Verified Allergy, 02/19/14) Home Meds Active Scripts Clopidogrel Bisulfate (Plavix) 75 Mg Tablet, 1 TAB PO DAILY for 30 Days, #30 TAB 0 Refills Prov:NICHOLE LOPEZ 04/04/25 Levofloxacin (Levofloxacin) 500 Mg Tablet, 1 TAB PO DAILY for 42 Days, #42 TAB 0 Refills Prov:NICHOLE LOPEZ 04/04/25 Reported Medications Furosemide (Furosemide) 20 Mg Tablet, 1 TAB PO DAILY for 30 Days, #30 TAB 0 Refills 03/25/25 Rosuvastatin Calcium (Rosuvastatin Calcium) 40 Mg Tablet, 20 MG PO DAILY, TAB 12/10/24 Aspirin (Low Dose Aspirin EC) 81 Mg Tablet.dr, 81 TAB PO DAILY for 30 Days, #30 TAB 0 Refills 12/10/24 Gabapentin (Gabapentin) 400 Mg Capsule, 1 CAP PO TID for 30 Days, #90 CAP 0 Refills 12/10/24 Escitalopram Oxalate (Escitalopram Oxalate) 10 Mg Tablet, 10 MG PO DAILY, TAB 12/10/24 Metoprolol Tartrate (Lopressor) 25 Mg Tab, 25 MG PO BID, TAB 02/17/15 Past Medical History Past Medical History: Diabetes-Type II, High Cholesterol, Hypertension, Vascular Disease Medical History Other: CHRONIC WOUND L FOOT, PICC LINE DAVID Past Surgical History: Other Surgical History Other: RBKA ROS Dictation CONSTITUTIONAL: Negative except for HPI HEAD/FACE: Negative except for HPI EENT: Negative except for HPI RESPIRATORY: Negative except for HPI GASTROINTESTINAL/ABDOMINAL: Negative except for HPI GENITOURINARY: Negative except for HPI MUSCULOSKELETAL: Negative except for HPI INTEGUMENTARY: Negative except for HPI NEUROLOGICAL/PSYCH: Negative except for HPI HEMATOLOGIC/LYMPHATIC: Negative except for HPI All Systems Negative, Except as noted above. 13 point review of systems assessed and all negative except for above. Physical Exam Physical Exam Dictation Vital Signs reviewed General Appearance: Alert, oriented x 3, no acute distress, well developed, nourished. Head and Face: non-traumatic. Eyes: PERRL, pink conjunctivas, eyelid no trauma, anterior chamber with arcus senilis. Ears: Pinnas intact and no signs of trauma or erythema ear canals clear and no discharge TM no erythema Nose: No discharge, no bleeding. Oropharynx: Mouth normal, tongue pink, pharynx clear,no erythema, tonsils no exudates, no abscesses noted, mucous membrane moist Neck: Supple, non-tender, no thyromegaly, no masses, no JVD, no bruits Breast:Deferred Chest:No tenderness, no crepitus, no paradoxical movement, no retractions Lungs:Clear, well-ventilated, symmetric, no rales, no wheezing, no rhonchi, no stridor, good breath sounds bilaterally Heart: Regular rate, regular rhythm, no murmur, no gallops Vascular: no peripheral edema, Abdomen: Soft, positive bowel sounds, nondistended, no guarding, nontender, no rebound, no masses no hepatomegaly, no splenomegaly, no Borrero's sign, no hernias. Rectal: Deferred Genital: Deferred Neurological: Normal speech, motor function intact, sensory function intact Musculoskeletal: Neck nontender, full range of motion, back nontender, full ra nge of motion, Extremities: nontender, full range of motion Skin: Color pink, dry, no turgor, no rash, no lacerations, no abrasions, no contusions. Lymphatic: Deferred Results Laboratory and Microbiology Lab and Micro Result Laboratory Tests Test 04/18/25 11:03 04/18/25 11:27 04/18/25 12:17 Whole Blood Glucose 85 MG/DL (70-110) 85 MG/DL (70-110) White Blood Count 8.3 K/uL (4.8-10.8) Red Blood Count 3.43 MIL/uL (4.50-6.20) L Hemoglobin 9.7 g/dL (14.0-18.0) L Hematocrit 30.1 % (42-54) L Mean Corpuscular Volume 87.8 fL (79-99) Mean Corpuscular Hemoglobin 28.3 pg (27.0-33.0) Mean Corpuscular Hemoglobin Concent 32.2 g/dL (32.0-36.0) Red Cell Distribution Width 15.2 % (11.0-15.5) Platelet Count 344 K/uL (130-400) Mean Platelet Volume 8.4 fL (7.5-10.5) Immature Granulocyte % (Auto) 0.2 % (0-1) Neutrophils (%) (Auto) 83.6 % (40.0-77.0) H Lymphocytes (%) (Auto) 8.2 % (21.0-51.0) L Monocytes (%) (Auto) 7.4 % (3.0-13.0) Eosinophils (%) (Auto) 0.2 % (0.0-8.0) Basophils (%) (Auto) 0.4 % (0.0-5.0) Neutrophils # (Auto) 6.9 K/uL (1.8-7.7) Lymphocytes # (Auto) 0.7 K/uL (1.0-4.8) L Monocytes # (Auto) 0.6 K/uL (0.1-1.0) Eosinophils # (Auto) 0.02 K/uL (0.00-0.70) Basophils # (Auto) 0.03 K/uL (0.00-0.20) Absolute Immature Granulocyte (auto 0.02 K/uL (0-1) Nucleated Red Blood Cells 0.0 % (0.0-0.19) White Cell Morphology Comment See comments Sodium Level 137 mmol/L (136-145) Potassium Level 4.1 mmol/L (3.5-5.1) Chloride Level 100 mmol/L (101-111) L Carbon Dioxide Level 28 mmol/L (21-32) Blood Urea Nitrogen 20 mg/dL (7-18) H Creatinine 1.0 mg/dL (0.5-1.3) Glomerular Filtration Rate Calc 77 mL/min (>90) Random Glucose 79 mg/dL (70-105) Total Calcium 8.8 mg/dL (8.5-10.1) MDM MDM: Differential diagnosis: Rationale: Tests considered and ordered secondary to shared decision making include: Previous outside records reviewed: Old ER visits. Risk of complication and/or morbidity or mortality of patient management: None Medications-Per medication reconciliation Need for hospitalization: Patient does not meet criteria for hospitalization. Need for emergency major/minor surgery: No There are no social concerns with this patient. Prescription drug management Prescriptions will include symptomatic care Patient's prior external medical records from other ER visits were reviewed by me as indicated. Prior testing and results from previous visits were reviewed. Prior tests were taken into account with medical decision making and resource utilization, independent historian/historians were used to obtain complete medical history. I independently interpreted the test that were performed, results were reviewed by me and considered findings on radiology if ordered. Medical management and examination interpretation discussions were had by me with other qualified healthcare professionals as indicated for the patient's care. ED Course Orders Procedure Category Date Status Time Cbc With Differential LAB 04/18/25 Complete 11:02 Basic Metabolic Panel LAB 04/18/25 Complete 11:02 Vital Signs Date Time Temp Pulse Resp B/P (MAP) Pulse Ox O2 Delivery O2 Flow Rate FiO2 04/18/25 11:30 98.2 86 18 152/81 95 Room Air* 0 21 04/18/25 11:09 98.1 87 12 161/75 98 Room Air 0 DX & DISP Disposition: Discharge Departure Impression: Primary Impression: Hypoglycemia Condition: Stable Referrals: MERYL LANDON MD (PCP) BARB JANSEN MD April 18, 2025 12:57
--- NOTE | 2025-04-18 13:20 | NUR ---
spoke to daughter Jessica Mazariegos, states he can not come to get patient for 45 min to 1 hour.
[2025-04-18 13:30] VITALS: BP 136/82; PULSE 86; RESP 18; TEMP 97.8; O2SAT 97
--- NOTE | 2025-04-18 14:00 | NUR ---
patient daughter here to nut picker patient, given discharge instructions, all questions were answered, patient taken to car in wheelchair, no distress
== END 2025-04-18 14:15 | disposition home or self-care (01) ==
LOC: EDH 10:57
DX: E11.649 Type 2 diabetes mellitus with hypoglycemia without coma (principal); E11.59 Type 2 diabetes mellitus with other circulatory complications; E78.00 Pure hypercholesterolemia, unspecified; I10 Essential (primary) hypertension; Z79.02 Long term (current) use of antithrombotics/antiplatelets; Z79.82 Long term (current) use of aspirin; Z79.899 Other long term (current) drug therapy
CPT/HCPCS: 36415; 80048; 82948; 85025; 99284

== ENCOUNTER → 2025-04-21 | Outpatient (CLI) | payer OTHER, MEDICARE ==
[~2025-04-21] MED LIST changes: +IODOSORB GEL 40GM TP ONE
== END | disposition home or self-care (01) ==
LOC: WHH 08:57
PROVIDERS: ATTEND Family Medicine
DX: E11.621 Type 2 diabetes mellitus with foot ulcer (principal); L97.524 Non-pressure chronic ulcer of other part of left foot with necrosis of bone; E11.69 Type 2 diabetes mellitus with other specified complication; M86.672 Other chronic osteomyelitis, left ankle and foot; E11.51 Type 2 diabetes mellitus with diabetic peripheral angiopathy without gangrene; E11.40 Type 2 diabetes mellitus with diabetic neuropathy, unspecified; I10 Essential (primary) hypertension; I25.10 Atherosclerotic heart disease of native coronary artery without angina pectoris; E66.9 Obesity, unspecified; E78.5 Hyperlipidemia, unspecified; F32.A Depression, unspecified; Z87.891 Personal history of nicotine dependence; Z89.511 Acquired absence of right leg below knee; Z79.899 Other long term (current) drug therapy; Z95.1 Presence of aortocoronary bypass graft
CPT/HCPCS: G0463; A6197; A4450

== ENCOUNTER → 2025-06-01 | Outpatient (CLI) | payer OTHER, MEDICARE ==
[~2025-06-01] MED LIST changes: +CEPH500B PO; -IODOSORB GEL 40GM TP ONE
== END | disposition home or self-care (01) ==
LOC: WHH 08:31
PROVIDERS: ATTEND Family Medicine
DX: E11.621 Type 2 diabetes mellitus with foot ulcer (principal); L97.524 Non-pressure chronic ulcer of other part of left foot with necrosis of bone; L97.422 Non-pressure chronic ulcer of left heel and midfoot with fat layer exposed; E11.69 Type 2 diabetes mellitus with other specified complication; M86.672 Other chronic osteomyelitis, left ankle and foot; E11.51 Type 2 diabetes mellitus with diabetic peripheral angiopathy without gangrene; E11.40 Type 2 diabetes mellitus with diabetic neuropathy, unspecified; I10 Essential (primary) hypertension; I25.10 Atherosclerotic heart disease of native coronary artery without angina pectoris; E78.5 Hyperlipidemia, unspecified; E66.9 Obesity, unspecified; F32.A Depression, unspecified; Z87.891 Personal history of nicotine dependence; Z89.511 Acquired absence of right leg below knee; Z79.899 Other long term (current) drug therapy; Z95.1 Presence of aortocoronary bypass graft
CPT/HCPCS: G0463; A6213; A6196; A4450

== ENCOUNTER → 2025-06-02 | Outpatient (CLI) | payer OTHER, MEDICARE | END | disposition home or self-care (01) | LOC: WHH 09:29 | PROVIDERS: ATTEND Family Medicine | DX: M86.672 Other chronic osteomyelitis, left ankle and foot (principal); E11.69 Type 2 diabetes mellitus with other specified complication; E11.621 Type 2 diabetes mellitus with foot ulcer; L97.524 Non-pressure chronic ulcer of other part of left foot with necrosis of bone; L97.421 Non-pressure chronic ulcer of left heel and midfoot limited to breakdown of skin; E11.51 Type 2 diabetes mellitus with diabetic peripheral angiopathy without gangrene; E11.40 Type 2 diabetes mellitus with diabetic neuropathy, unspecified; I10 Essential (primary) hypertension; I25.10 Atherosclerotic heart disease of native coronary artery without angina pectoris; E78.5 Hyperlipidemia, unspecified; E66.9 Obesity, unspecified; F32.A Depression, unspecified; Z87.891 Personal history of nicotine dependence; Z89.511 Acquired absence of right leg below knee; Z79.899 Other long term (current) drug therapy; Z95.1 Presence of aortocoronary bypass graft | CPT/HCPCS: 82948 ×2; G0277; A6213 ==

== ENCOUNTER → 2025-06-03 | Outpatient (CLI) | payer OTHER, MEDICARE | END | disposition home or self-care (01) | LOC: WHH 13:19 | PROVIDERS: ATTEND Family Medicine | DX: M86.672 Other chronic osteomyelitis, left ankle and foot (principal); E11.69 Type 2 diabetes mellitus with other specified complication; E11.621 Type 2 diabetes mellitus with foot ulcer; L97.524 Non-pressure chronic ulcer of other part of left foot with necrosis of bone; L97.421 Non-pressure chronic ulcer of left heel and midfoot limited to breakdown of skin; E11.51 Type 2 diabetes mellitus with diabetic peripheral angiopathy without gangrene; E11.40 Type 2 diabetes mellitus with diabetic neuropathy, unspecified; I10 Essential (primary) hypertension; I25.10 Atherosclerotic heart disease of native coronary artery without angina pectoris; E78.5 Hyperlipidemia, unspecified; E66.9 Obesity, unspecified; F32.A Depression, unspecified; Z87.891 Personal history of nicotine dependence; Z89.511 Acquired absence of right leg below knee; Z79.899 Other long term (current) drug therapy; Z95.1 Presence of aortocoronary bypass graft; Z68.26 Body mass index [BMI] 26.0-26.9, adult | CPT/HCPCS: 82948; G0277; A6213 ==

== ENCOUNTER → 2025-06-04 | Outpatient (CLI) | payer OTHER, MEDICARE | END | disposition home or self-care (01) | LOC: WHH 12:57 | PROVIDERS: ATTEND Family Medicine | DX: M86.672 Other chronic osteomyelitis, left ankle and foot (principal); E11.69 Type 2 diabetes mellitus with other specified complication; E11.621 Type 2 diabetes mellitus with foot ulcer; L97.524 Non-pressure chronic ulcer of other part of left foot with necrosis of bone; L97.421 Non-pressure chronic ulcer of left heel and midfoot limited to breakdown of skin; E11.51 Type 2 diabetes mellitus with diabetic peripheral angiopathy without gangrene; E11.40 Type 2 diabetes mellitus with diabetic neuropathy, unspecified; I10 Essential (primary) hypertension; I25.10 Atherosclerotic heart disease of native coronary artery without angina pectoris; E78.5 Hyperlipidemia, unspecified; E66.9 Obesity, unspecified; F32.A Depression, unspecified; Z87.891 Personal history of nicotine dependence; Z89.511 Acquired absence of right leg below knee; Z79.899 Other long term (current) drug therapy; Z95.1 Presence of aortocoronary bypass graft | CPT/HCPCS: 82948; G0277; A6213 ==

== ENCOUNTER → 2025-06-05 | Outpatient (CLI) | payer OTHER, MEDICARE | END | disposition home or self-care (01) | LOC: WHH 12:47 | PROVIDERS: ATTEND Family Medicine | DX: M86.672 Other chronic osteomyelitis, left ankle and foot (principal); E11.69 Type 2 diabetes mellitus with other specified complication; E11.621 Type 2 diabetes mellitus with foot ulcer; L97.524 Non-pressure chronic ulcer of other part of left foot with necrosis of bone; L97.421 Non-pressure chronic ulcer of left heel and midfoot limited to breakdown of skin; E11.51 Type 2 diabetes mellitus with diabetic peripheral angiopathy without gangrene; E11.40 Type 2 diabetes mellitus with diabetic neuropathy, unspecified; I10 Essential (primary) hypertension; I25.10 Atherosclerotic heart disease of native coronary artery without angina pectoris; E78.5 Hyperlipidemia, unspecified; E66.9 Obesity, unspecified; F32.A Depression, unspecified; Z87.891 Personal history of nicotine dependence; Z89.511 Acquired absence of right leg below knee; Z79.899 Other long term (current) drug therapy; Z95.1 Presence of aortocoronary bypass graft; Z68.26 Body mass index [BMI] 26.0-26.9, adult | CPT/HCPCS: 82948; G0277; A6213 ==

== ENCOUNTER → 2025-06-08 | Outpatient (CLI) | payer OTHER, MEDICARE | END | disposition home or self-care (01) | LOC: WHH 12:59 | PROVIDERS: ATTEND Family Medicine | DX: M86.672 Other chronic osteomyelitis, left ankle and foot (principal); E11.69 Type 2 diabetes mellitus with other specified complication; E11.621 Type 2 diabetes mellitus with foot ulcer; L97.524 Non-pressure chronic ulcer of other part of left foot with necrosis of bone; L97.421 Non-pressure chronic ulcer of left heel and midfoot limited to breakdown of skin; E11.51 Type 2 diabetes mellitus with diabetic peripheral angiopathy without gangrene; E11.40 Type 2 diabetes mellitus with diabetic neuropathy, unspecified; I10 Essential (primary) hypertension; I25.10 Atherosclerotic heart disease of native coronary artery without angina pectoris; E78.5 Hyperlipidemia, unspecified; E66.9 Obesity, unspecified; F32.A Depression, unspecified; Z87.891 Personal history of nicotine dependence; Z89.511 Acquired absence of right leg below knee; Z79.899 Other long term (current) drug therapy; Z95.1 Presence of aortocoronary bypass graft; Z68.26 Body mass index [BMI] 26.0-26.9, adult | CPT/HCPCS: 82948 ×2; G0277; A6213; A6196 ==

== ENCOUNTER → 2025-06-09 | Outpatient (CLI) | payer OTHER, MEDICARE | END | disposition home or self-care (01) | LOC: WHH 13:29 | PROVIDERS: ATTEND Family Medicine | DX: M86.672 Other chronic osteomyelitis, left ankle and foot (principal); E11.69 Type 2 diabetes mellitus with other specified complication; E11.621 Type 2 diabetes mellitus with foot ulcer; L97.524 Non-pressure chronic ulcer of other part of left foot with necrosis of bone; L97.421 Non-pressure chronic ulcer of left heel and midfoot limited to breakdown of skin; E11.51 Type 2 diabetes mellitus with diabetic peripheral angiopathy without gangrene; E11.40 Type 2 diabetes mellitus with diabetic neuropathy, unspecified; I10 Essential (primary) hypertension; I25.10 Atherosclerotic heart disease of native coronary artery without angina pectoris; E78.5 Hyperlipidemia, unspecified; E66.9 Obesity, unspecified; F32.A Depression, unspecified; Z87.891 Personal history of nicotine dependence; Z89.511 Acquired absence of right leg below knee; Z79.899 Other long term (current) drug therapy; Z95.1 Presence of aortocoronary bypass graft; Z68.26 Body mass index [BMI] 26.0-26.9, adult | CPT/HCPCS: 82948; G0277; A6213; A6196 ==

== ENCOUNTER → 2025-06-10 | Outpatient (CLI) | payer OTHER, MEDICARE | END | disposition home or self-care (01) | LOC: WHH 13:39 | PROVIDERS: ATTEND Family Medicine | DX: M86.672 Other chronic osteomyelitis, left ankle and foot (principal); E11.69 Type 2 diabetes mellitus with other specified complication; E11.621 Type 2 diabetes mellitus with foot ulcer; L97.524 Non-pressure chronic ulcer of other part of left foot with necrosis of bone; L97.421 Non-pressure chronic ulcer of left heel and midfoot limited to breakdown of skin; E11.51 Type 2 diabetes mellitus with diabetic peripheral angiopathy without gangrene; E11.40 Type 2 diabetes mellitus with diabetic neuropathy, unspecified; I10 Essential (primary) hypertension; I25.10 Atherosclerotic heart disease of native coronary artery without angina pectoris; E78.5 Hyperlipidemia, unspecified; E66.9 Obesity, unspecified; F32.A Depression, unspecified; Z87.891 Personal history of nicotine dependence; Z89.511 Acquired absence of right leg below knee; Z79.899 Other long term (current) drug therapy; Z95.1 Presence of aortocoronary bypass graft; Z68.26 Body mass index [BMI] 26.0-26.9, adult | CPT/HCPCS: 82948; G0277; A6213; A6196 ==

== ENCOUNTER → 2025-06-11 | Outpatient (CLI) | payer OTHER, MEDICARE | END | disposition home or self-care (01) | LOC: WHH 13:23 | PROVIDERS: ATTEND Family Medicine | DX: M86.672 Other chronic osteomyelitis, left ankle and foot (principal); E11.69 Type 2 diabetes mellitus with other specified complication; E11.621 Type 2 diabetes mellitus with foot ulcer; L97.524 Non-pressure chronic ulcer of other part of left foot with necrosis of bone; L97.421 Non-pressure chronic ulcer of left heel and midfoot limited to breakdown of skin; E11.51 Type 2 diabetes mellitus with diabetic peripheral angiopathy without gangrene; E11.40 Type 2 diabetes mellitus with diabetic neuropathy, unspecified; I10 Essential (primary) hypertension; I25.10 Atherosclerotic heart disease of native coronary artery without angina pectoris; E78.5 Hyperlipidemia, unspecified; E66.9 Obesity, unspecified; F32.A Depression, unspecified; Z87.891 Personal history of nicotine dependence; Z89.511 Acquired absence of right leg below knee; Z79.899 Other long term (current) drug therapy; Z95.1 Presence of aortocoronary bypass graft; Z68.26 Body mass index [BMI] 26.0-26.9, adult | CPT/HCPCS: G0277; A6212; A6196 ==

== ENCOUNTER → 2025-06-12 | Outpatient (CLI) | payer OTHER, MEDICARE | END | disposition home or self-care (01) | LOC: WHH 12:41 | PROVIDERS: ATTEND Family Medicine | DX: M86.672 Other chronic osteomyelitis, left ankle and foot (principal); E11.69 Type 2 diabetes mellitus with other specified complication; E11.621 Type 2 diabetes mellitus with foot ulcer; L97.524 Non-pressure chronic ulcer of other part of left foot with necrosis of bone; L97.421 Non-pressure chronic ulcer of left heel and midfoot limited to breakdown of skin; E11.51 Type 2 diabetes mellitus with diabetic peripheral angiopathy without gangrene; E11.40 Type 2 diabetes mellitus with diabetic neuropathy, unspecified; I10 Essential (primary) hypertension; I25.10 Atherosclerotic heart disease of native coronary artery without angina pectoris; E78.5 Hyperlipidemia, unspecified; E66.9 Obesity, unspecified; F32.A Depression, unspecified; Z87.891 Personal history of nicotine dependence; Z89.511 Acquired absence of right leg below knee; Z79.899 Other long term (current) drug therapy; Z95.1 Presence of aortocoronary bypass graft; Z68.26 Body mass index [BMI] 26.0-26.9, adult | CPT/HCPCS: 82948; G0277; A6212; A6196 ==

== ENCOUNTER → 2025-06-15 | Outpatient (CLI) | payer OTHER, MEDICARE | END | disposition home or self-care (01) | LOC: WHH 13:32 | PROVIDERS: ATTEND Family Medicine | DX: M86.672 Other chronic osteomyelitis, left ankle and foot (principal); E11.69 Type 2 diabetes mellitus with other specified complication; E11.621 Type 2 diabetes mellitus with foot ulcer; L97.524 Non-pressure chronic ulcer of other part of left foot with necrosis of bone; L97.421 Non-pressure chronic ulcer of left heel and midfoot limited to breakdown of skin; E11.51 Type 2 diabetes mellitus with diabetic peripheral angiopathy without gangrene; E11.40 Type 2 diabetes mellitus with diabetic neuropathy, unspecified; I10 Essential (primary) hypertension; I25.10 Atherosclerotic heart disease of native coronary artery without angina pectoris; E78.5 Hyperlipidemia, unspecified; E66.9 Obesity, unspecified; F32.A Depression, unspecified; Z87.891 Personal history of nicotine dependence; Z89.511 Acquired absence of right leg below knee; Z79.899 Other long term (current) drug therapy; Z95.1 Presence of aortocoronary bypass graft | CPT/HCPCS: 82948 ×2; G0277; A6212; A6196 ==